=== PATIENT | female | born 1935 | race Caucasian/White ===

== ENCOUNTER 2017-10-31 19:24 | Inpatient (IN) | payer MEDICARE, MEDICAID ==
[2017-10-31] MEDS ORDERED: ACETAMINOPHEN 325 MG TABLET PO ONE (20:19)
[2017-10-31] MEDS ORDERED: ONDANSETRON 4 MG TAB.RAPDIS PO ONE (20:19)
--- NOTE | 2017-10-31 20:22 | ER Document Report ---
ED Medical Screen (RME) - General Chief Complaint: Cough Stated Complaint: COUGH Time Seen by Provider: 10/31/17 20:15 Notes: 82-year-old female patient with onset about 5 PM today of cough congestion fever will need less responsive. Patient does have some dementia. This saw the patient is alert and seems to be nauseous and attempting to spit into an emesis bag. She does have become congested cough. She has past history of coronary artery disease with bypass surgery. I have greeted and performed a rapid initial assessment of this patient. A comprehensive ED assessment and evaluation of the patient, analysis of test results and completion of the medical decision making process will be conducted by additional ED providers. TRAVEL OUTSIDE OF THE [place] IN LAST 30 DAYS: No - Related Data Allergies/Adverse Reactions: acetaminophen [From Tylox] Allergy (Verified 10/31/17 20:17) Hallucinations codeine Allergy (Verified 10/31/17 20:17) Hallucinations escitalopram [From Lexapro] Allergy (Verified 10/31/17 20:17) hydrocodone Allergy (Verified 10/31/17 20:17) Iodinated Contrast- Oral and IV Dye Allergy (Verified 10/31/17 20:17) morphine Allergy (Verified 10/31/17 20:17) oxycodone [From Tylox] Allergy (Verified 10/31/17 20:17) Hallucinations venlafaxine [From Effexor] Allergy (Verified 10/31/17 20:17)
[2017-10-31 21:13] LABS: HEMATOCRIT 36.8 % (36.0-47.0); HEMOGLOBIN 12.4 g/dL (12.0-15.5); MEAN CORPUSCULAR HEMOGLOBIN 29.4 pg (27.0-33.4); MEAN CORPUSCULAR HGB CONC 33.8 g/dL (32.0-36.0); MEAN CORPUSCULAR VOLUME 87 fl (80-97); PLATELET COUNT 121 10^3/uL (150-450); RED BLOOD COUNT 4.23 10^6/uL (3.72-5.28); RED CELL DISTRIBUTION WIDTH 13.4 % (11.5-14.0)
[2017-10-31 21:24] LABS: ALANINE AMINOTRANSFERASE 86 U/L (9-52); ALKALINE PHOSPHATASE 89 U/L (38-126); ANION GAP 11 (5-19); ASPARTATE AMINO TRANSFERASE 79 U/L (14-36); BILIRUBIN,DIRECT 0.1 mg/dL (0.0-0.4); BILIRUBIN,TOTAL 0.4 mg/dL (0.2-1.3); BLOOD UREA NITROGEN 27 mg/dL (7-20); CALCIUM 8.3 mg/dL (8.4-10.2); CARBON DIOXIDE 23 mmol/L (22-30); CHLORIDE 95 mmol/L (98-107); CREATINE KINASE 56 U/L (30-135); GLUCOSE 222 mg/dL (75-110); POTASSIUM 4.2 mmol/L (3.6-5.0); SODIUM 128.6 mmol/L (137-145); TOTAL PROTEIN 6.2 g/dL (6.3-8.2)
[2017-10-31 21:34] LABS: ABSOLUTE LYMPHOCYTES# (MANUAL) 0.4 10^3/uL (0.5-4.7); ABSOLUTE MONOCYTES # (MANUAL) 0.6 10^3/uL (0.1-1.4); BASOPHILS % (MANUAL) 0 % (0-2); EOSINOPHILS % (MANUAL) 0 % (0-6); LYMPHOCYTES % (MANUAL) 5 % (13-45); MONOCYTES % (MANUAL) 8 % (3-13); SEGMENTED NEUTROPHILS % (MAN) 87 % (42-78); TOTAL CELLS COUNTED 100
[2017-10-31 21:35] LABS: CREATINE KINASE MB 0.29 ng/mL (<4.55); PLATELET COMMENT DECREASED; TOXIC GRANULATION SLIGHT
[2017-10-31 21:37] LABS: TROPONIN I 0.046 ng/mL
--- NOTE | 2017-10-31 21:38 | RADIOLOGY REPORT (SQ) ---
EXAM DESCRIPTION: CHEST SINGLE VIEW COMPLETED DATE/TIME: 10/31/2017 9:18 pm REASON FOR STUDY: cough, fever COMPARISON: None. EXAM PARAMETERS: NUMBER OF VIEWS: One view. TECHNIQUE: Single frontal radiographic view of the chest acquired. RADIATION DOSE: NA LIMITATIONS: None. FINDINGS: LUNGS AND PLEURA: No consolidation, masses or pneumothorax. No pleural effusion. MEDIASTINUM AND HILAR STRUCTURES: Age-appropriate. HEART AND VASCULAR STRUCTURES: Cardiomegaly. BONES: No acute findings. HARDWARE: Sternotomy-AVR. OTHER: No other significant finding. IMPRESSION: No consolidation or pleural effusion. TECHNICAL DOCUMENTATION: JOB ID: [id number] [employer]- All Rights Reserved
[2017-10-31] MEDS ORDERED: NORMAL SALINE 500 ML IV ONE (22:06)
--- NOTE | 2017-10-31 22:08 | ER Document Report ---
ED Respiratory Problem - General Chief Complaint: Cough Stated Complaint: COUGH Time Seen by Provider: 10/31/17 20:15 Mode of Arrival: Wheelchair Information source: Patient, Relative Notes: Patient developed cough and congestion around 5 PM this evening. Patient started to have nausea with vomiting at that time as well. Daughter states that on arrival to the emergency department they noted that she had a fever. Patient denies any diarrhea. Patient denies any recent sick contacts. Patient denies any chest pain, back pain or abdominal tenderness. TRAVEL OUTSIDE OF THE [place] IN LAST 30 DAYS: No - HPI Patient complains to provider of: Cough, Short of breath. No: Chest pain Onset: This evening Duration: Continuous Quality of pain: No pain Pain Level: Denies Context: denies: Hx asthma, Recent surgery, Smoker Short of Breath: Mild Cough: Nonproductive Associated symptoms: Congestion, Cough, Short of breath. denies: Anxiety, Bloody cough, Chest pain/discomfort, Fever Similar symptoms previously: No Recently seen / treated by doctor: No - Related Data Allergies/Adverse Reactions: codeine Allergy (Verified 10/31/17 20:17) Hallucinations escitalopram [From Lexapro] Allergy (Verified 10/31/17 20:17) hydrocodone Allergy (Verified 10/31/17 20:17) Iodinated Contrast- Oral and IV Dye Allergy (Verified 10/31/17 20:17) morphine Allergy (Verified 10/31/17 20:17) oxycodone [From Tylox] Allergy (Verified 10/31/17 20:17) Hallucinations venlafaxine [From Effexor] Allergy (Verified 10/31/17 20:17) Past Medical History - General Information source: Patient - Social History Smoking Status: Never Smoker Frequency of alcohol use: None Drug Abuse: None Lives with: Family Family History: Reviewed & Not Pertinent Patient has suicidal ideation: No Patient has homicidal ideation: No - Medical History Medical History: Other - Alzheimer's dementia - Past Medical History Cardiac Medical History: Reports: Hx Coronary Artery Disease Endocrine Medical History: Reports: Hx Hypothyroidism Renal/ Medical History: Denies: Hx Peritoneal Dialysis GI Medical History: Reports: Hx Gastroesophageal Reflux Disease Past Surgical History: Reports: Hx Cardiac Catheterization, Hx Cardiac Surgery - triple bypass, aortic valve repalced, Hx Cholecystectomy, Hx Hysterectomy Review of Systems - Review of Systems Constitutional: No symptoms reported. denies: Fever, Recent illness EENT: No symptoms reported Cardiovascular: No symptoms reported. denies: Chest pain Respiratory: Cough, Short of breath Gastrointestinal: Nausea, Vomiting. denies: Abdominal pain, Diarrhea Genitourinary: No symptoms reported. denies: Dysuria, Flank pain Female Genitourinary: No symptoms reported Musculoskeletal: No symptoms reported. denies: Back pain Skin: No symptoms reported Hematologic/Lymphatic: No symptoms reported Neurological/Psychological: Dementia Physical Exam - Vital signs Vitals: Resp BP Pulse Ox 23 H 116/70 93 10/31/17 21:55 10/31/17 21:55 10/31/17 21:55 - General General appearance: Appears well, Alert In distress: None - HEENT Head: Normocephalic, Atraumatic Eyes: Normal Conjunctiva: Normal Ears: Normal External canal: Normal Nasal: Normal Mouth/Lips: Normal Mucous membranes: Dry Neck: Normal, Supple. No: Lymphadenopathy - Respiratory Respiratory status: No respiratory distress Chest status: Nontender Breath sounds: Nonproductive cough, Rhonchi Chest palpation: Normal - Cardiovascular Rhythm: Regular Heart sounds: S1 appreciated, S2 appreciated Murmur: Yes - Abdominal Inspection: Normal Distension: No distension Bowel sounds: Normal Tenderness: Nontender Organomegaly: No organomegaly - Back Back: Normal, Nontender. No: CVA tenderness - Extremities General upper extremity: Normal inspection, Normal ROM General lower extremity: Normal inspection, Normal ROM - Neurological Neuro grossly intact: Yes Cognition: Normal [place] Coma Scale Eye Opening: Spontaneous [place] Coma Scale Verbal: Oriented [place] Coma Scale Motor: Obeys Commands [place] Coma Scale Total: 15 - Psychological Associated symptoms: Normal affect, Normal mood - Skin Skin Temperature: Warm Skin Moisture: Dry Skin Color: Normal Course - Re-evaluation Re-evalutation: 10/31/17 23:[address] Goldstein regarding patient presentation. Agrees with plan to repeat troponin test. Does recommend treating UTI symptoms. 11/01/17 01:28 Patient resting comfortably. Patient continues to deny any chest pain, back pain or abdominal pain. Patient denies any nausea at this time. front attendant sinus rhythm in the 60s. Patient with increase in her troponin. Patient is still in the indeterminate range at this time. Consulted with Dr. Goldstein who recommends consultation with hospitalist for admission. Consulted with Dr. James who reviewed patient's diagnostic tests and agrees to accept patient as admission at this time - Vital Signs Vital signs: Temp Pulse Resp BP Pulse Ox 98.9 F 21 H 128/58 H 95 11/01/17 06:31 11/01/17 06:01 11/01/17 06:00 11/01/17 06:01 - Laboratory Result Diagrams: 10/31/17 20:05 10/31/17 20:05 Laboratory results interpreted by me: 10/31/17 10/31/17 10/31/17 20:05 20:05 22:05 Plt Count 121 L Seg Neuts % (Manual) 87 H Lymphocytes % (Manual) 5 L Abs Lymphs (Manual) 0.4 L Sodium 128.6 L Chloride 95 L BUN 27 H Glucose 222 H Calcium 8.3 L AST 79 H ALT 86 H Total Protein 6.2 L Urine Protein 100 H Urine Blood SMALL H Urine Nitrite POSITIVE H Ur Leukocyte Esterase SMALL H 11/01/17 01:27 Labs- Entire Visit 10/31/17 10/31/17 10/31/17 20:05 20:05 20:05 WBC 8.0 RBC 4.23 Hgb 12.4 Hct 36.8 MCV 87 MCH 29.4 MCHC 33.8 RDW 13.4 Plt Count 121 L Total Counted 100 Seg Neutrophils % Not Reportable Seg Neuts % (Manual) 87 H Lymphocytes % Not Reportable Lymphocytes % (Manual) 5 L Monocytes % Not Reportable Monocytes % (Manual) 8 Eosinophils % Not Reportable Eosinophils % (Manual) 0 Basophils % Not Reportable Basophils % (Manual) 0 Absolute Neutrophils Not Reportable Abs Neuts (Manual) 7.0 Absolute Lymphocytes Not Reportable Abs Lymphs (Manual) 0.4 L Absolute Monocytes Not Reportable Abs Monocytes (Manual) 0.6 Absolute Eosinophils Not Reportable Absolute Eos (Manual) 0.0 Absolute Basophils Not Reportable Abs Basophils (Manual) 0.0 Toxic Granulation SLIGHT Platelet Comment DECREASED Sodium 128.6 L Potassium 4.2 Chloride 95 L Carbon Dioxide 23 Anion Gap 11 BUN 27 H Creatinine 0.78 Est GFR ( Amer) > 60 Est GFR (Non-Af Amer) > 60 Glucose 222 H Calcium 8.3 L Total Bilirubin 0.4 Direct Bilirubin 0.1 Neonat Total Bilirubin Not Reportable Neonat Direct Bilirubin Not Reportable Neonat Indirect Bili Not Reportable AST 79 H ALT 86 H Alkaline Phosphatase 89 Creatine Kinase 56 CK-MB (CK-2) 0.29 Troponin I 0.046 Total Protein 6.2 L Albumin 4.0 Urine Color Urine Appearance Urine pH Ur Specific [place] Urine Protein Urine Glucose (UA) Urine Ketones Urine Blood Urine Nitrite Urine Bilirubin Urine Urobilinogen Ur Leukocyte Esterase Urine WBC (Auto) Urine RBC (Auto) Urine Bacteria (Auto) Urine Mucus (Auto) Urine Ascorbic Acid Influenza A (Rapid) Influenza B (Rapid) 10/31/17 10/31/17 10/31/17 22:05 22:05 23:46 WBC RBC Hgb Hct MCV MCH MCHC RDW Plt Count Total Counted Seg Neutrophils % Seg Neuts % (Manual) Lymphocytes % Lymphocytes % (Manual) Monocytes % Monocytes % (Manual) Eosinophils % Eosinophils % (Manual) Basophils % Basophils % (Manual) Absolute Neutrophils Abs Neuts (Manual) Absolute Lymphocytes Abs Lymphs (Manual) Absolute Monocytes Abs Monocytes (Manual) Absolute Eosinophils Absolute Eos (Manual) Absolute Basophils Abs Basophils (Manual) Toxic Granulation Platelet Comment Sodium Potassium Chloride Carbon Dioxide Anion Gap BUN Creatinine Est GFR ( Amer) Est GFR (Non-Af Amer) Glucose Calcium Total Bilirubin Direct Bilirubin Neonat Total Bilirubin Neonat Direct Bilirubin Neonat Indirect Bili AST ALT Alkaline Phosphatase Creatine Kinase CK-MB (CK-2) Troponin I 0.107 Total Protein Albumin Urine Color YELLOW Urine Appearance SLIGHTLY-CLOUDY Urine pH 5.0 Ur Specific [place] 1.017 Urine Protein 100 H Urine Glucose (UA) NEGATIVE Urine Ketones NEGATIVE Urine Blood SMALL H Urine Nitrite POSITIVE H Urine Bilirubin NEGATIVE Urine Urobilinogen NEGATIVE Ur Leukocyte Esterase SMALL H Urine WBC (Auto) 27 Urine RBC (Auto) 6 Urine Bacteria (Auto) 3+ Urine Mucus (Auto) FEW Urine Ascorbic Acid NEGATIVE Influenza A (Rapid) NEGATIVE Influenza B (Rapid) NEGATIVE - Diagnostic Test Radiology reviewed: Reports reviewed Discharge - Discharge Clinical Impression: Hyponatremia Upper respiratory infection Qualifiers: URI type: unspecified URI Qualified Code(s): J06.9 - Acute upper respiratory infection, unspecified UTI (urinary tract infection) Qualifiers: Urinary tract infection type: site unspecified Hematuria presence: without hematuria Qualified Code(s): N39.0 - Urinary tract infection, site not specified Condition: Stable Disposition: ADMITTED INPATIENT Admitting Provider: Hospitalist Unit Admitted: Telemetry
[2017-10-31 22:37] LABS: A TYPE INFLUENZA AG NEGATIVE (NEGATIVE); B INFLUENZA AG NEGATIVE (NEGATIVE)
[2017-10-31 22:47] LABS: APPEARANCE,URINE SLIGHTLY-CLOUDY; BILIRUBIN,URINE NEGATIVE (NEGATIVE); COLOR,URINE YELLOW; GLUCOSE, URINE NEGATIVE (NEGATIVE); KETONES,URINE NEGATIVE (NEGATIVE); LEUKOCYTE ESTERASE,URINE SMALL (NEGATIVE); NITRITE,URINE POSITIVE (NEGATIVE); PROTEIN,URINE 100 mg/dL (NEGATIVE); URINE SPECIFIC GRAVITY 1.017; UROBILINOGEN,URINE NEGATIVE mg/dL (<2.0)
[2017-10-31] MEDS ORDERED: CEFTRIAXONE 1 GM/D5W RTU 1 GM/50 ML RTUPB IV ONE (23:14)
[2017-10-31] MEDS ORDERED: CEFTRIAXONE INJ 1000 MG VIAL ONE (23:34)
[2017-11-01] MEDS ORDERED: ASPIRIN 81 MG TABLET, CHEWABLE PO ONE (01:11)
--- NOTE | 2017-11-01 07:03 | PDOC H&P ---
History of Present Illness Admission Date/PCP: 11/01/17 04:22 Patient complains of: Viral-like symptoms History of Present Illness: RITESH MONTOYA is a 82 year old female who is in town visiting her daughter. She has a history of dementia, and is status post a our atrial valve replacement 2 as well as bypass surgery. For the last several days she has had nausea and vomiting and came to the emergency room as she has no local doctor. Here she was found to have hyponatremia according to her daughter she has been hyponatremic in the past but as far as she knew it had been corrected. In addition she was found to have a urinary tract infection. She was started on antibiotics and was admitted to our service. Past Medical History Cardiac Medical History: Reports: Coronary Artery Disease Pulmonary Medical History: Reports: None EENT Medical History: Reports: None Neurological Medical History: Reports: Other - Dementia Endocrine Medical History: Reports: None GI Medical History: Reports: Gastroesophageal Reflux Disease Psychiatric Medical History: Reports: Dementia Past Surgical History Past Surgical History: Reports: Cardiac Catheterization, Cholecystectomy, Hysterectomy Social History Information Source: Patient, Relative Lives with: Family Smoking Status: Never Smoker Frequency of Alcohol Use: None Hx Recreational Drug Use: No Drugs: None Hx Prescription Drug Abuse: No - Advance Directive Resuscitation Status: Full Code Family History Family History: Reviewed & Not Pertinent Parental Family History Reviewed: Yes Children Family History Reviewed: Yes Sibling(s) Family History Reviewed.: Yes Medication/Allergy Allergies/Adverse Reactions: codeine Allergy (Verified 10/31/17 20:17) Hallucinations escitalopram [From Lexapro] Allergy (Verified 10/31/17 20:17) hydrocodone Allergy (Verified 10/31/17 20:17) Iodinated Contrast- Oral and IV Dye Allergy (Verified 10/31/17 20:17) morphine Allergy (Verified 10/31/17 20:17) oxycodone [From Tylox] Allergy (Verified 10/31/17 20:17) Hallucinations venlafaxine [From Effexor] Allergy (Verified 10/31/17 20:17) Review of Systems ROS unobtainable: Due to mental status - Dementia Physical Exam Vital Signs: Temp Pulse Resp BP Pulse Ox 98.9 F 21 H 128/58 H 95 11/01/17 06:31 11/01/17 06:01 11/01/17 06:00 11/01/17 06:01 General appearance: PRESENT: no acute distress, cooperative, thin Head exam: PRESENT: atraumatic, normocephalic Eye exam: PRESENT: EOMI, PERRLA. ABSENT: nystagmus Ear exam: PRESENT: normal external ear exam Neck exam: ABSENT: carotid bruit, JVD, meningismus Respiratory exam: PRESENT: clear to auscultation alfreda, unlabored. ABSENT: accessory muscle use Cardiovascular exam: PRESENT: RRR. ABSENT: diastolic murmur, rubs, systolic murmur GI/Abdominal exam: PRESENT: normal bowel sounds, soft. ABSENT: distended, guarding, mass, organolmegaly, rebound, tenderness Rectal exam: PRESENT: deferred Extremities exam: PRESENT: full ROM. ABSENT: calf tenderness, clubbing, pedal edema Neurological exam: PRESENT: alert, awake, CN II-XII grossly intact Psychiatric exam: PRESENT: appropriate affect, normal mood. ABSENT: homicidal ideation, suicidal ideation Skin exam: PRESENT: dry, intact, warm. ABSENT: cyanosis, rash Results Laboratory Results: 10/31/17 10/31/17 10/31/17 20:05 20:05 20:05 WBC 8.0 Hgb 12.4 Hct 36.8 Plt Count 121 L Sodium 128.6 L Potassium 4.2 BUN 27 H Glucose 222 H Calcium 8.3 L AST 79 H ALT 86 H Troponin I 0.046 Total Protein 6.2 L Ur Leukocyte Esterase Urine WBC (Auto) Influenza A (Rapid) Influenza B (Rapid) 10/31/17 10/31/17 10/31/17 22:05 22:05 23:46 WBC Hgb Hct Plt Count Sodium Potassium BUN Glucose Calcium AST ALT Troponin I 0.107 Total Protein Ur Leukocyte Esterase SMALL H Urine WBC (Auto) 27 Influenza A (Rapid) NEGATIVE Influenza B (Rapid) NEGATIVE Impressions: Chest X-Ray 10/31/17 20:18 IMPRESSION: No consolidation or pleural effusion. Assessment & Plan - Diagnosis (1) Acute viral syndrome Is this a current diagnosis for this admission?: Yes (2) Aortic valve replaced Is this a current diagnosis for this admission?: Yes (3) Hyponatremia Is this a current diagnosis for this admission?: Yes (4) UTI (urinary tract infection) Qualifiers: Urinary tract infection type: site unspecified Hematuria presence: without hematuria Qualified Code(s): N39.0 - Urinary tract infection, site not specified Is this a current diagnosis for this admission?: Yes - Time Time Spent: 30 to 50 Minutes - Inpatient Certification Based on my medical assessment, after consideration of the patient's comorbidities, presenting symptoms, or acuity I expect that the services needed warrant INPATIENT care.: Yes I certify that my determination is in accordance with my understanding of Medicare's requirements for reasonable and necessary INPATIENT services [42 CFR 412.3e].: Yes Medical Necessity: Need for IV Antibiotics - Plan Summary Plan Summary: Patient will be admitted to hospital she will have serum and urine osmolarities to rule out SIADH in the meantime she will have IV saline plus fluid restriction to try to correct her hyponatremia. She will receive DVT prophylaxis with low molecular weight heparin. Anticipated length of stay is greater than 2 midnights
[2017-11-01] MEDS: DOCUSATE SODIUM 100 MG CAPSULE PO SCH (09:55)
[2017-11-01] MEDS: FAMOTIDINE 20 MG TABLET PO SCH ×2 (09:56→21:24)
[2017-11-01] MEDS: NORMAL SALINE 1000 ML 1,000 ML IV PRN (10:00)
[2017-11-01] MEDS: ENOXAPARIN SODIUM INJ 40 MG/0.4 ML DISP.SYRIN SUBCUT SCH (10:06)
[2017-11-01] MEDS: ACETAMINOPHEN 325 MG TABLET PO PRN (14:24)
[2017-11-01] MEDS: TRAZODONE HCL 50 MG TABLET PO SCH (21:23)
[2017-11-01] MEDS: CARVEDILOL 3.125 MG TABLET PO SCH (21:23)
[2017-11-01] MEDS ORDERED: CEFTRIAXONE 1 GM/D5W RTU 1 GM/50 ML RTUPB IV SCH (22:00)
[2017-11-01] MEDS ORDERED: CEFTRIAXONE INJ 1000 MG VIAL ONE (22:41)
[2017-11-02] MEDS: NORMAL SALINE 1000 ML 1,000 ML IV PRN ×2 (03:23→23:06)
[2017-11-02] MEDS: ACETAMINOPHEN 325 MG TABLET PO PRN ×2 (04:30→18:40)
[2017-11-02] MEDS: LEVOTHYROXINE SODIUM 0.05 MG TABLET PO SCH (05:41)
[2017-11-02 06:54] LABS: HEMATOCRIT 33.7 % (36.0-47.0); HEMOGLOBIN 11.4 g/dL (12.0-15.5); MEAN CORPUSCULAR HEMOGLOBIN 29.3 pg (27.0-33.4); MEAN CORPUSCULAR HGB CONC 33.8 g/dL (32.0-36.0); MEAN CORPUSCULAR VOLUME 87 fl (80-97); PLATELET COUNT 103 10^3/uL (150-450); RED BLOOD COUNT 3.89 10^6/uL (3.72-5.28); RED CELL DISTRIBUTION WIDTH 13.6 % (11.5-14.0); WHITE BLOOD COUNT 7.1 10^3/uL (4.0-10.5)
[2017-11-02 07:11] LABS: ANION GAP 5 (5-19); BLOOD UREA NITROGEN 24 mg/dL (7-20); CALCIUM 7.9 mg/dL (8.4-10.2); CARBON DIOXIDE 27 mmol/L (22-30); CHLORIDE 99 mmol/L (98-107); GLUCOSE 102 mg/dL (75-110); MAGNESIUM 1.9 mg/dL (1.6-2.3); PHOSPHORUS 3.1 mg/dL (2.5-4.5); SODIUM 131.3 mmol/L (137-145)
[2017-11-02] MEDS ORDERED: CEFTRIAXONE SODIUM 1,500 MG in DEXTROSE 5%-WATER 100 ML IV SCH (10:00)
[2017-11-02] MEDS ORDERED: CEFTRIAXONE SODIUM 1,000 MG in NORMAL SALINE 50 ML IV SCH (10:00)
[2017-11-02] MEDS ORDERED: (PENDING PHARMACY ID) (Memantine Hcl [Namenda Xr] 28 MG) PO SCH (10:00)
[2017-11-02] MEDS: ASPIRIN 81 MG TABLET, CHEWABLE PO SCH (10:19)
[2017-11-02] MEDS: DONEPEZIL HCL 5 MG TABLET PO SCH (10:19)
[2017-11-02] MEDS: BUSPIRONE HCL 10 MG TABLET PO SCH ×2 (10:19→17:17)
[2017-11-02] MEDS: DOCUSATE SODIUM 100 MG CAPSULE PO SCH (10:19)
[2017-11-02] MEDS: CARVEDILOL 3.125 MG TABLET PO SCH ×2 (10:19→21:02)
[2017-11-02] MEDS: MULTIVITAMIN TABLET PO SCH (10:20)
[2017-11-02] MEDS: FAMOTIDINE 20 MG TABLET PO SCH ×2 (10:20→21:01)
[2017-11-02] MEDS: ENOXAPARIN SODIUM INJ 40 MG/0.4 ML DISP.SYRIN SUBCUT SCH (10:21)
--- NOTE | 2017-11-02 11:55 | EKG REPORT ---
SEVERITY:- ABNORMAL ECG - SINUS TACHYCARDIA LEFT ATRIAL ABNORMALITY RBBB AND LAFB LEFT VENTRICULAR HYPERTROPHY ANTERIOR Q WAVES, POSSIBLY DUE TO LVH : Confirmed by: Guillermina Duque MD 02-Nov-2017 11:53:35
[2017-11-02] MEDS ORDERED: ONDANSETRON HCL INJ/PF 4 MG/2 ML SDV ONE (13:47)
[2017-11-02] MEDS ORDERED: ONDANSETRON HCL INJ/PF 4 MG/2 ML SDV IV PRN (14:21)
--- NOTE | 2017-11-02 14:53 | PDOC PROGRESS REPORT ---
Subjective Progress Note for:: 11/02/17 Subjective:: Patient is an elderly and frail 82-year-old female who has Alzheimer's dementia. Her daughter brought her in because she was coughing and having swallowing difficulties. At the present time she does not appear to have any difficulty with swallowing. Previous notes indicate that the patient was brought in for mental status changes. She currently has evidence of a urinary tract infection. I did observe the patient eating this morning and she did not appear to have any difficulty with swallowing. Reason For Visit: HYPONATREMIA Physical Exam Vital Signs: Temp Pulse Resp BP Pulse Ox 98.9 F 77 16 157/64 H 93 11/02/17 14:00 11/02/17 14:00 11/02/17 14:00 11/02/17 14:00 11/02/17 14:00 Intake & Output 11/01/17 11/02/17 11/03/17 06:59 06:59 06:59 Intake Total 655 520 Output Total 425 600 Balance 230 -80 Additional comments: The patient is a frail and elderly female. She denies all complaints, but her daughter says this is normal for her. Her lungs demonstrate crackles at the bases bilaterally. Her cardiac exam demonstrates a regular rate and rhythm without murmurs, gallops or rubs. The abdomen is soft and flat. The lower extremities are warm to touch without edema. The skin is warm, dry and intact without lesions or rashes. Results Laboratory Results: 11/02/17 06:08 11/02/17 06:08 11/02/17 11/02/17 06:08 06:08 WBC 7.1 RBC 3.89 Hgb 11.4 L Hct 33.7 L MCV 87 MCH 29.3 MCHC 33.8 RDW 13.6 Plt Count 103 L Sodium 131.3 L Potassium 4.0 Chloride 99 Carbon Dioxide 27 Anion Gap 5 BUN 24 H Creatinine 0.74 Est GFR ( Amer) > 60 Est GFR (Non-Af Amer) > 60 Glucose 102 Calcium 7.9 L Phosphorus 3.1 Magnesium 1.9 Impressions: Chest X-Ray 10/31/17 20:18 IMPRESSION: No consolidation or pleural effusion. Assessment & Plan - Diagnosis (2) Hyponatremia Is this a current diagnosis for this admission?: Yes (3) UTI (urinary tract infection) Qualifiers: Urinary tract infection type: site unspecified Hematuria presence: without hematuria Qualified Code(s): N39.0 - Urinary tract infection, site not specified Is this a current diagnosis for this admission?: Yes - Time Time Spent with patient: 15-24 minutes - Inpatient Certification Medical Necessity: Need for IV Antibiotics - Plan Summary Plan Summary: Clinically, the patient appears to be improving. She is currently receiving ceftriaxone for the urinary tract infection. Her sodium is improved. The infection in the low sodium likely led to acute encephalopathy in the setting of dementia. If the cough re-presents I will investigated.
[2017-11-02] MEDS: TRAMADOL HCL 50 MG TABLET PO PRN (21:01)
[2017-11-02] MEDS: TRAZODONE HCL 50 MG TABLET PO SCH (21:02)
[2017-11-02] MEDS: CEFTRIAXONE SODIUM 1,000 MG in NORMAL SALINE 50 ML IV SCH (21:05)
[2017-11-02] MEDS ORDERED: CLONIDINE HCL 0.1 MG TABLET PO ONE (23:00)
[2017-11-03 05:30] LABS: HEMATOCRIT 36.4 % (36.0-47.0); HEMOGLOBIN 12.1 g/dL (12.0-15.5); MEAN CORPUSCULAR HEMOGLOBIN 29.2 pg (27.0-33.4); MEAN CORPUSCULAR HGB CONC 33.1 g/dL (32.0-36.0); MEAN CORPUSCULAR VOLUME 88 fl (80-97); PLATELET COUNT 114 10^3/uL (150-450); RED BLOOD COUNT 4.13 10^6/uL (3.72-5.28); RED CELL DISTRIBUTION WIDTH 13.6 % (11.5-14.0); WHITE BLOOD COUNT 7.6 10^3/uL (4.0-10.5)
[2017-11-03 05:53] LABS: ANION GAP 5 (5-19); BLOOD UREA NITROGEN 20 mg/dL (7-20); CARBON DIOXIDE 28 mmol/L (22-30); CHLORIDE 98 mmol/L (98-107); GLUCOSE 142 mg/dL (75-110); MAGNESIUM 1.7 mg/dL (1.6-2.3); PHOSPHORUS 3.2 mg/dL (2.5-4.5); POTASSIUM 4.3 mmol/L (3.6-5.0); SODIUM 130.6 mmol/L (137-145)
[2017-11-03] MEDS: LEVOTHYROXINE SODIUM 0.05 MG TABLET PO SCH (06:13)
[2017-11-03] MEDS: DONEPEZIL HCL 5 MG TABLET PO SCH (09:57)
[2017-11-03] MEDS: ASPIRIN 81 MG TABLET, CHEWABLE PO SCH (09:57)
[2017-11-03] MEDS: DOCUSATE SODIUM 100 MG CAPSULE PO SCH (09:57)
[2017-11-03] MEDS: BUSPIRONE HCL 10 MG TABLET PO SCH ×2 (09:58→18:25)
[2017-11-03] MEDS: CARVEDILOL 3.125 MG TABLET PO SCH ×2 (09:58→20:25)
[2017-11-03] MEDS: FAMOTIDINE 20 MG TABLET PO SCH ×2 (09:58→20:25)
[2017-11-03] MEDS: MULTIVITAMIN TABLET PO SCH (09:58)
[2017-11-03] MEDS ORDERED: FUROSEMIDE INJ/PF 40 MG/4 ML SDV IV ONE (10:00)
[2017-11-03] MEDS: ENOXAPARIN SODIUM INJ 40 MG/0.4 ML DISP.SYRIN SUBCUT SCH (10:04)
--- NOTE | 2017-11-03 13:06 | PDOC PROGRESS REPORT ---
Subjective Progress Note for:: 11/03/17 Subjective:: Patient is an elderly and frail 82-year-old female who has Alzheimer's dementia. Her daughter brought her in because she was coughing and having swallowing difficulties. At the present time she does not appear to have any difficulty with swallowing. Previous notes indicate that the patient was brought in for mental status changes. She currently has evidence of a urinary tract infection. I did observe the patient eating yesterday and she did not appear to have any difficulty with swallowing. This morning, the patient had audible rales. She also had some difficulty with eating but denied any complaints of shortness of breath or difficulty with cough or swallowing. Apparently, she did have some coughing prior to me entering the room. Reason For Visit: HYPONATREMIA Physical Exam Vital Signs: Temp Pulse Resp BP Pulse Ox 97.3 F 67 20 149/69 H 95 11/03/17 00:00 11/03/17 00:00 11/03/17 00:00 11/03/17 00:00 11/03/17 00:00 Intake & Output 11/02/17 11/03/17 11/04/17 06:59 06:59 06:59 Intake Total 655 1828 Output Total 425 700 Balance 230 1128 Weight 45.3 kg Additional comments: The patient is a delightful, elderly, frail female. She keeps telling me that she is fine and not to worry about her. She has audible rails. Her facial appearance is unremarkable. She is also tachypneic with a respiratory rate of approximately 28. She again has audible rales and very loud rales are auscultated throughout all lung jones. Her cardiac exam is regular without murmurs, gallops or rubs. The abdomen is soft and flat. Bowel sounds are noted in the lower quadrants. The lower extremities are warm to touch without edema. Skin is warm, dry and intact without lesions or rashes. Results Laboratory Results: 11/03/17 04:53 11/03/17 04:53 11/03/17 11/03/17 04:53 04:53 WBC 7.6 RBC 4.13 Hgb 12.1 Hct 36.4 MCV 88 MCH 29.2 MCHC 33.1 RDW 13.6 Plt Count 114 L Sodium 130.6 L Potassium 4.3 Chloride 98 Carbon Dioxide 28 Anion Gap 5 BUN 20 Creatinine 0.57 Est GFR ( Amer) > 60 Est GFR (Non-Af Amer) > 60 Glucose 142 H Calcium 8.0 L Phosphorus 3.2 Magnesium 1.7 Impressions: Chest X-Ray 10/31/17 20:18 IMPRESSION: No consolidation or pleural effusion. Assessment & Plan - Diagnosis (1) Cough Is this a current diagnosis for this admission?: Yes Plan: At this point time I think the patient's cough is from volume overload. Fluids have been stopped. The patient has been written for 1 stat dose of Lasix and a chest x-ray is pending. (2) Hyponatremia Is this a current diagnosis for this admission?: Yes Plan: Serum milestones are normal. Urine sodium is pending. Will volume restrict. Check TSH. (3) UTI (urinary tract infection) Qualifiers: Urinary tract infection type: site unspecified Hematuria presence: without hematuria Qualified Code(s): N39.0 - Urinary tract infection, site not specified Is this a current diagnosis for this admission?: Yes Plan: The patient is growing a pansensitive E. coli. Continue ceftriaxone. (4) Thrombocytopenia Is this a current diagnosis for this admission?: Yes Plan: Stable to improved - Time Time Spent with patient: 25-34 minutes - Inpatient Certification Medical Necessity: Need Close Monitoring Due to Risk of Patient Decompensation, Need for IV Antibiotics, Risk of Complication if Not Cared For in Hospital
--- NOTE | 2017-11-03 13:52 | RADIOLOGY REPORT (SQ) ---
EXAM DESCRIPTION: CHEST SINGLE VIEW COMPLETED DATE/TIME: 11/03/2017 1:39 pm REASON FOR STUDY: Worsening respiratory status COMPARISON: 10/31/2017 NUMBER OF VIEWS: One view. TECHNIQUE: Single frontal radiographic image of the chest acquired. LIMITATIONS: None. FINDINGS: LUNGS AND PLEURA: Extensive airspace disease in both lungs with some sparing of the lower lobes. Small effusions. MEDIASTINUM AND HEART: Stable heart size and mediastinal structures. BONY STRUCTURES: No acute findings. HARDWARE: Prosthetic heart valve. OTHER: No other significant finding. IMPRESSION: Pulmonary edema or sepsis. Clinical correlation is needed. TECHNICAL DOCUMENTATION: JOB ID: [id number]
[2017-11-03] MEDS ORDERED: ALPRAZOLAM 0.25 MG TABLET PO PRN (18:07)
[2017-11-03] MEDS ORDERED: POTASSIUM CHLORIDE 10 MEQ TABLET.SA PO ONE (18:45)
[2017-11-03] MEDS ORDERED: FUROSEMIDE INJ/PF 20 MG/2 ML SDV IV ONE (18:45)
[2017-11-03] MEDS: ACETAMINOPHEN 325 MG TABLET PO PRN (20:25)
[2017-11-03] MEDS: TRAZODONE HCL 50 MG TABLET PO SCH (20:26)
[2017-11-03] MEDS: CEFTRIAXONE SODIUM 1,000 MG in NORMAL SALINE 50 ML IV SCH (20:29)
[2017-11-04 05:40] LABS: HEMOGLOBIN 12.1 g/dL (12.0-15.5); MEAN CORPUSCULAR HEMOGLOBIN 29.3 pg (27.0-33.4); MEAN CORPUSCULAR HGB CONC 33.7 g/dL (32.0-36.0); MEAN CORPUSCULAR VOLUME 87 fl (80-97); PLATELET COUNT 118 10^3/uL (150-450); RED BLOOD COUNT 4.15 10^6/uL (3.72-5.28); RED CELL DISTRIBUTION WIDTH 13.2 % (11.5-14.0); WHITE BLOOD COUNT 7.2 10^3/uL (4.0-10.5)
[2017-11-04] MEDS: LEVOTHYROXINE SODIUM 0.05 MG TABLET PO SCH (05:46)
[2017-11-04 06:12] LABS: ANION GAP 9 (5-19); BLOOD UREA NITROGEN 23 mg/dL (7-20); CALCIUM 8.1 mg/dL (8.4-10.2); CARBON DIOXIDE 30 mmol/L (22-30); CHLORIDE 94 mmol/L (98-107); GLUCOSE 187 mg/dL (75-110); MAGNESIUM 1.7 mg/dL (1.6-2.3); PHOSPHORUS 2.3 mg/dL (2.5-4.5); POTASSIUM 3.8 mmol/L (3.6-5.0); SODIUM 132.8 mmol/L (137-145)
[2017-11-04] MEDS: ACETAMINOPHEN 325 MG TABLET PO PRN ×2 (06:20→13:41)
[2017-11-04] MEDS: TRAMADOL HCL 50 MG TABLET PO PRN ×2 (06:24→21:24)
[2017-11-04] MEDS: ENOXAPARIN SODIUM INJ 40 MG/0.4 ML DISP.SYRIN SUBCUT SCH (09:16)
[2017-11-04] MEDS: ASPIRIN 81 MG TABLET, CHEWABLE PO SCH (09:35)
[2017-11-04] MEDS: FAMOTIDINE 20 MG TABLET PO SCH ×2 (09:38→21:25)
[2017-11-04] MEDS: CARVEDILOL 3.125 MG TABLET PO SCH ×2 (09:38→21:25)
[2017-11-04] MEDS: DOCUSATE SODIUM 100 MG CAPSULE PO SCH (09:38)
[2017-11-04] MEDS: DONEPEZIL HCL 5 MG TABLET PO SCH (09:38)
[2017-11-04] MEDS: BUSPIRONE HCL 10 MG TABLET PO SCH ×2 (09:38→16:48)
[2017-11-04] MEDS: MULTIVITAMIN TABLET PO SCH (09:38)
--- NOTE | 2017-11-04 14:05 | PDOC PROGRESS REPORT ---
Subjective Progress Note for:: 11/04/17 Subjective:: Patient is an elderly and frail 82-year-old female who has Alzheimer's dementia. Her daughter brought her in because she was coughing and having swallowing difficulties. The patient was brought in by her daughter because she had an acute change in her level of cognition. She was identified as having a urinary tract infection. She has become more alert and appropriate. She does get quite confused when her daughter leaves. Yesterday, she had evidence of acute onset pulmonary edema. She was receiving IV fluids for hyponatremia. The fluids were discontinued and she was given IV Lasix. I did ask speech therapy to see the patient today because she was having some obvious difficulty swallowing yesterday. Apparently, she did well with her speech evaluation this morning. When I discussed her cardiac status with her daughter this morning the daughter mentioned to me that she has had coronary artery bypass grafting followed by valvular repair 2. She could not be more specific. I have ordered an echocardiogram any consultation with cardiology. I did clarify the patient's CODE STATUS this morning. She has been made DNR. She does not want routine interventions but if she worsens and she is pulseless she would want to pass away naturally. She does not want intubation. Reason For Visit: HYPONATREMIA Physical Exam Vital Signs: Temp Pulse Resp BP Pulse Ox 97.8 F 70 12 134/52 H 97 11/04/17 11:49 11/04/17 11:49 11/04/17 11:49 11/04/17 11:49 11/04/17 11:49 Intake & Output 11/03/17 11/04/17 11/05/17 06:59 06:59 06:59 Intake Total 1828 1154 Output Total 700 2900 Balance 1128 -1746 Weight 45.3 kg 45.2 kg Additional comments: The patient appears to be a very frail, elderly female. However, she is not in as much distress as she was yesterday. She does appear to be significantly improved. She is interactive and denies any complaints. Her lungs continue to show rales but they are subsiding. Her cardiac exam is regular. I do not appreciate any murmurs, gallops or rubs. The cardiac exam is somewhat distant and limited. The patient's abdomen is soft. Bowel sounds are present in the lower quadrants. There is no guarding or rebound noted and there are no hernias or masses present. The lower extremities do not demonstrate pitting edema. The skin is warm, dry and intact without lesions or rashes. Results Laboratory Results: 11/04/17 04:37 11/04/17 04:37 11/04/17 11/04/17 11/04/17 04:37 04:37 04:37 WBC 7.2 RBC 4.15 Hgb 12.1 Hct 36.0 MCV 87 MCH 29.3 MCHC 33.7 RDW 13.2 Plt Count 118 L Sodium 132.8 L Potassium 3.8 Chloride 94 L Carbon Dioxide 30 Anion Gap 9 BUN 23 H Creatinine 0.76 Est GFR ( Amer) > 60 Est GFR (Non-Af Amer) > 60 Glucose 187 H Calcium 8.1 L Phosphorus 2.3 L Magnesium 1.7 TSH 1.68 Impressions: Chest X-Ray 11/03/17 00:00 IMPRESSION: Pulmonary edema or sepsis. Clinical correlation is needed. Assessment & Plan - Diagnosis (1) Cough Is this a current diagnosis for this admission?: Yes Plan: At this point time I think the patient's cough is from volume overload. Fluids have been stopped. Patient is receiving Lasix. Echocardiogram has been ordered. Cardiology consultation has been ordered. (2) Hyponatremia Is this a current diagnosis for this admission?: Yes Plan: Serum osmolality is low. Urine sodium is elevated.. Will volume restrict. TSH is normal. (3) UTI (urinary tract infection) Qualifiers: Urinary tract infection type: site unspecified Hematuria presence: without hematuria Qualified Code(s): N39.0 - Urinary tract infection, site not specified Is this a current diagnosis for this admission?: Yes Plan: The patient is growing a pansensitive E. coli. Continue ceftriaxone. (4) Thrombocytopenia Is this a current diagnosis for this admission?: Yes Plan: Stable to improved - Time Time Spent with patient: 25-34 minutes - Inpatient Certification Medical Necessity: Significant Comorbidiites Make Outpatient Treatment Too Risky , Need Close Monitoring Due to Risk of Patient Decompensation, Need For Continuous Telemetry Monitoring, Risk of Complication if Not Cared For in Hospital, Risk of Diagnosis Which Will Require Inpatient Eval/Care/Monitoring
[2017-11-04] MEDS ORDERED: PHOSPHORUS #1 250 MG TABLET PO ONE (15:00)
[2017-11-04] MEDS ORDERED: POTASSIUM CHLORIDE 10 MEQ TABLET.SA PO ONE (15:00)
[2017-11-04] MEDS ORDERED: FUROSEMIDE INJ/PF 20 MG/2 ML SDV IV ONE (15:00)
[2017-11-04] MEDS: PHOSPHORUS #1 250 MG TABLET PO SCH (15:41)
--- NOTE | 2017-11-04 18:50 | EKG REPORT ---
SEVERITY:- ABNORMAL ECG - SINUS TACHYCARDIA LEFT ATRIAL ABNORMALITY RBBB AND LAFB LEFT VENTRICULAR HYPERTROPHY ANTERIOR Q WAVES, POSSIBLY DUE TO LVH : Confirmed by: Jayy Wynn MD 04-Nov-2017 18:49:18
--- NOTE | 2017-11-04 19:29 | XCELERA REPORT ---
[address] [address] Transthoracic Echocardiogram Report Name: RITESH MONTOYA Age: 82 yrs Gender: Female : 1935 Patient Status: Inpatient Patient Location: [address] [place] [address] Study Date: 11/04/2017 10:49 AM Height: 48 in Weight: 99 lb BSA: 1.2 m2 Procedure: A complete two-dimensional transthoracic echocardiogram was performed (2D, M-mode, spectral and color flow Doppler). The study was technically difficult with many images being suboptimal in quality. Reason For Study: congestive heart failure Ordering Physician: JANIA HOANG Performed By: Genevieve Gutierrez Interpretation Summary The study was technically difficult with many images being suboptimal in quality. Left ventricular systolic function is low normal. There is mild concentric left ventricular hypertrophy. The left ventricle is grossly normal size. Doppler measurements suggest reversible restrictive left ventricular relaxation, which is associated with grade III/IV or moderate diastolic dysfunction Wall motion cannot be accurately commented on, but no definite regional wall motion abnormalities noted. The right ventricular systolic function is normal. The right atrium is mildly dilated. The left atrium is mildly dilated. There is a mild to moderate amount of mitral regurgitation There is no mitral valve stenosis. There is a mild to moderate amount of aortic regurgitation There is mild aortic stenosis There is a mild amount of tricuspid regurgitation There is mild to moderate pulmonary hypertension by echo Right ventricular systolic pressure is estimated to be elevated at 40- 50mmHg. The aortic root is not well visualized. The inferior vena cava appeared dilated and decreased < 50% with respiration (RAP 15-20 mmHg) There is no pericardial effusion. MMode/2D Measurements & Calculations RVDd: 3.0 cm LVIDd: 4.5 cm FS: 31.2 % Ao root diam: 3.1 cm IVSd: 0.96 cm LVIDs: 3.1 cm EDV(Teich): 92.1 ml LVPWd: 1.0 cm ESV(Teich): 37.6 ml Ao root area: 7.4 cm2 EF(Teich): 59.1 % LVOT diam: 2.0 cm LVOT area: 3.1 cm2 Doppler Measurements & Calculations MV E max neeraj: MV dec slope: Ao V2 max: AI max neeraj: 114.0 cm/sec 576.7 cm/sec2 239.0 cm/sec 433.2 cm/sec MV A max neeraj: MV dec time: Ao max PG: AI max P.8 cm/sec 0.20 sec 22.9 mmHg 75.1 mmHg MV E/A: 0.98 Ao V2 mean: AI dec slope: 167.8 cm/sec 217.5 cm/sec2 Ao mean PG: AI P1/2t: 13.0 mmHg 583.5 msec Ao V2 VTI: 50.9 cm EMMANUELLE(I,D): 1.1 cm2 EMMANUELLE(V,D): 0.97 cm2 LV V1 max PG: SV(LVOT): 56.0 ml PA V2 max: PI end-d neeraj: 2.2 mmHg 65.8 cm/sec 110.3 cm/sec LV V1 mean PG: PA max P.3 mmHg 1.7 mmHg LV V1 max: 74.5 cm/sec LV V1 mean: 52.6 cm/sec LV V1 VTI: 18.0 cm TR max neeraj: 235.2 cm/sec TR max P.3 mmHg Left Ventricle The left ventricle is grossly normal size. There is mild concentric left ventricular hypertrophy. Left ventricular systolic function is low normal. Doppler measurements suggest reversible restrictive left ventricular relaxation, which is associated with grade III/IV or moderate diastolic dysfunction. Wall motion cannot be accurately commented on, but no definite regional wall motion abnormalities noted. Right Ventricle The right ventricle is grossly normal size. There is normal right ventricular wall thickness. The right ventricular systolic function is normal. Atria The right atrium is mildly dilated. The left atrium is mildly dilated. Interarterial septum not well visualized and not well dopplered. Cannot comment on ASD/PFO presence. Mitral Valve There is moderate mitral annular calcification. There is no mitral valve stenosis. There is a mild to moderate amount of mitral regurgitation. Aortic Valve There is mild aortic stenosis. There is a mild to moderate amount of aortic regurgitation. There is a bioprosthetic aortic valve. Tricuspid Valve The tricuspid valve is not well visualized, but is grossly normal. There is no tricuspid stenosis. There is a mild amount of tricuspid regurgitation. There is mild to moderate pulmonary hypertension by echo. Right ventricular systolic pressure is estimated to be elevated at 40-50mmHg. Pulmonic Valve The pulmonic valve is not well visualized. Great Vessels The aortic root is not well visualized. The inferior vena cava appeared dilated and decreased < 50% with respiration (RAP 15-20 mmHg). Effusions There is no pericardial effusion. : JANIA HOANG > Ebenezer Minaya
[2017-11-04] MEDS: CEFTRIAXONE SODIUM 1,000 MG in NORMAL SALINE 50 ML IV SCH (21:24)
[2017-11-04] MEDS: TRAZODONE HCL 50 MG TABLET PO SCH (21:25)
[2017-11-05] MEDS: TRAMADOL HCL 50 MG TABLET PO PRN (03:57)
[2017-11-05] MEDS: HYDRALAZINE HCL INJ/PF 20 MG/1 ML SDV IV PRN (05:21)
[2017-11-05 06:10] LABS: ANION GAP 10 (5-19); BLOOD UREA NITROGEN 31 mg/dL (7-20); CALCIUM 8.3 mg/dL (8.4-10.2); CARBON DIOXIDE 30 mmol/L (22-30); CHLORIDE 93 mmol/L (98-107); GLUCOSE 254 mg/dL (75-110); MAGNESIUM 1.7 mg/dL (1.6-2.3); PHOSPHORUS 3.2 mg/dL (2.5-4.5); POTASSIUM 4.1 mmol/L (3.6-5.0); SODIUM 133.1 mmol/L (137-145)
[2017-11-05] MEDS: LEVOTHYROXINE SODIUM 0.05 MG TABLET PO SCH (06:37)
[2017-11-05] MEDS: ACETAMINOPHEN 325 MG TABLET PO PRN (07:19)
[2017-11-05] MEDS: PHOSPHORUS #1 250 MG TABLET PO SCH ×3 (08:32→15:11)
[2017-11-05] MEDS: ENOXAPARIN SODIUM INJ 40 MG/0.4 ML DISP.SYRIN SUBCUT SCH (09:44)
[2017-11-05] MEDS: DONEPEZIL HCL 5 MG TABLET PO SCH (09:45)
[2017-11-05] MEDS: BUSPIRONE HCL 10 MG TABLET PO SCH ×2 (09:45→17:30)
[2017-11-05] MEDS: DOCUSATE SODIUM 100 MG CAPSULE PO SCH (09:45)
[2017-11-05] MEDS: FAMOTIDINE 20 MG TABLET PO SCH ×2 (09:46→21:56)
[2017-11-05] MEDS: CARVEDILOL 3.125 MG TABLET PO SCH (09:46)
[2017-11-05] MEDS: ASPIRIN 81 MG TABLET, CHEWABLE PO SCH (09:46)
[2017-11-05] MEDS: MULTIVITAMIN TABLET PO SCH (09:46)
--- NOTE | 2017-11-05 10:05 | PDOC CONSULTATION ---
Consultation Consult Date: 11/04/17 Attending physician:: JACOBY RAMOS Consult reason:: Positive troponin I History of Present Illness Admission Date/PCP: 11/01/17 04:22 Patient complains of: Noted to be short of breath History of Present Illness: RITESH MONTOYA is a 82 year old female who is in town visiting her daughter. She has a history of dementia, and is status post a our atrial valve replacement 2 as well as bypass surgery. For the last several days she has had nausea and vomiting and came to the emergency room as she has no local doctor. Here she was found to have hyponatremia according to her daughter she has been hyponatremic in the past but as far as she knew it had been corrected. In addition she was found to have a urinary tract infection. She was started on antibiotics and was admitted to our service. This history was reviewed and confirmed. I did talk with patient's daughter who was in the room. Patient has history of complicated cardiac history with valve replacement and also bypass surgery. Patient has history of CHF. Currently however she seems to have some pneumonia. This was discussed. Also discussed that because of her advanced age, dementia, mild general debility, she would not be considered a candidate for any aggressive and/or invasive evaluation. Patient's daughter seems to agree with this approach. Past Medical History Cardiac Medical History: Reports: Coronary Artery Disease Pulmonary Medical History: Reports: None EENT Medical History: Reports: None Neurological Medical History: Reports: Other - Dementia Endocrine Medical History: Reports: None, Hypothyroidism GI Medical History: Reports: Gastroesophageal Reflux Disease Psychiatric Medical History: Reports: Dementia, Depression Past Surgical History Past Surgical History: Reports: Cardiac Catheterization, Cholecystectomy, Hysterectomy Social History Lives with: Family Smoking Status: Never Smoker Frequency of Alcohol Use: None Hx Recreational Drug Use: No Drugs: None Hx Prescription Drug Abuse: No - Advance Directive Resuscitation Status: Full Code Family History Family History: CAD, Hypertension Parental Family History Reviewed: Yes Children Family History Reviewed: Yes Sibling(s) Family History Reviewed.: Yes Medication/Allergy Home Medications: Aspirin [Aspirin 81 mg Chewable Tablet] 81 mg PO DAILY 11/01/17 Buspirone HCl [Buspar 10 mg Tablet] 10 mg PO BID 11/01/17 Calcium Carbonate/Vitamin D3 [Calcium 600-Vit D3 200 Tablet] 1 each PO DAILY Carvedilol [Coreg 3.125 mg Tablet] 3.125 mg PO Q12 11/01/17 Cyanocobalamin (Vitamin B-12) [B-12] 1,000 mcg PO DAILY 11/01/17 Donepezil HCl [Aricept] 10 mg PO DAILY 11/01/17 Famotidine [Pepcid 20 mg Tablet] 20 mg PO DAILY 11/01/17 Ferrous Sulfate [Feosol 325 mg Tablet] 325 mg PO DAILY 11/01/17 Flavia Root 550 mg PO DAILY 11/01/17 Levothyroxine Sodium [Synthroid 0.05 mg Tablet] 0.05 mg PO Q6AM 11/01/17 Memantine HCl [Namenda Xr] 28 mg PO DAILY 11/01/17 Multivitamin [Tab-A-Imtiaz] 1 each PO DAILY 11/01/17 Nitroglycerin [Nitrostat 0.4 mg (1/150 Gr) Tabs 25/Bottle] 1 tab PO ASDIR PRN Tramadol HCl [Ultram 50 mg Tablet] 50 mg PO ASDIR PRN 11/01/17 Trazodone HCl [Desyrel 50 mg Tablet] 75 mg PO QHS 11/01/17 Allergies/Adverse Reactions: codeine Allergy (Verified 10/31/17 20:17) Hallucinations escitalopram [From Lexapro] Allergy (Verified 10/31/17 20:17) hydrocodone Allergy (Verified 10/31/17 20:17) Iodinated Contrast- Oral and IV Dye Allergy (Verified 10/31/17 20:17) morphine Allergy (Verified 10/31/17 20:17) oxycodone [From Tylox] Allergy (Verified 10/31/17 20:17) Hallucinations venlafaxine [From Effexor] Allergy (Verified 10/31/17 20:17) seafood Allergy (Uncoded 11/07/17 16:14) Review of Systems ROS unobtainable: Due to mental status Review of Systems: Patient has advanced dementia. Currently however denying any chest pains or any shortness of breath. Noted to be comfortable laying in bed. Physical Exam Vital Signs: Temp Pulse Resp BP Pulse Ox 97.3 F 82 20 152/71 H 97 11/04/17 16:20 11/04/17 16:20 11/04/17 16:20 11/04/17 16:20 11/04/17 16:20 Intake & Output 11/03/17 11/04/17 11/05/17 06:59 06:59 06:59 Intake Total 1828 1154 645 Output Total 700 2900 100 Balance 1128 -9364 545 Weight 45.3 kg 45.2 kg Exam: GENERAL: Thin built and in mild respiratory distress. Patient is alert but not oriented to place or time but oriented to person. HEAD: Atraumatic, normocephalic. EYES: Pupils equal round and reactive to light, extraocular movements intact, sclera anicteric, conjunctiva are normal. ENT: TMs normal, nares patent, oropharynx clear without exudates. Moist mucous membranes. No oral ulcerations or bleeding gums noted NECK: supple without lymphadenopathy or JVD. Trachea is central. No cervical or axillary lymphadenopathy noted. Carotids are 2+ LUNGS: Breath sounds bibasilar fine crackles at bases. No significant dullness noted. CHEST: Palpation of chest wall shows no significant chest wall tenderness. HEART: [place] [employer], No PSH, 2/6 MARSHAL aortic area, 2/6 early diastolic murmur noted in the LSB: 1/6 [place]ue systolic murmur mitral area, rubs or gallops. ABDOMEN: Soft, no significant tenderness appreciated, normoactive bowel sounds. No guarding, no rebound. No rigidity noted . No masses appreciated. EXTREMITIES: Pedal pulses are 1-2+, no calf tenderness noted, Trace + pedal edema noted. No clubbing or cyanosis. NEUROLOGICAL: Patient is alert but is not able to participate in neurological exam because of patient's current mental status PSYCH: Patient cannot participate in a neurologic and psych exam because of the patient's current mental status SKIN: No significant ecchymosis, rash, ulcerations or signs of pruritus noted. MUSCULOSKELETAL EXAM: No significant joint swelling noted. Results Laboratory Results: 11/04/17 04:37 11/04/17 04:37 11/04/17 11/04/17 11/04/17 04:37 04:37 04:37 WBC 7.2 RBC 4.15 Hgb 12.1 Hct 36.0 MCV 87 MCH 29.3 MCHC 33.7 RDW 13.2 Plt Count 118 L Sodium 132.8 L Potassium 3.8 Chloride 94 L Carbon Dioxide 30 Anion Gap 9 BUN 23 H Creatinine 0.76 Est GFR ( Amer) > 60 Est GFR (Non-Af Amer) > 60 Glucose 187 H Calcium 8.1 L Phosphorus 2.3 L Magnesium 1.7 TSH 1.68 EKG Comments: Sinus tachycardia with incomplete right bundle branch block pattern. No acute ST-T wave changes noted. Impressions: Chest X-Ray 11/03/17 00:00 IMPRESSION: Pulmonary edema or sepsis. Clinical correlation is needed. Assessment & Plan - Diagnosis (1) Aortic valve replaced Is this a current diagnosis for this admission?: Yes (2) Hyponatremia Is this a current diagnosis for this admission?: Yes (3) Congestive heart failure Qualifiers: Congestive heart failure type: unspecified Is this a current diagnosis for this admission?: Yes (4) Pneumonia Qualifiers: Pneumonia type: due to unspecified organism Laterality: unspecified laterality Lung location: unspecified part of lung Qualified Code(s): J18.9 - Pneumonia, unspecified organism Is this a current diagnosis for this admission?: Yes (5) Elevated troponin I level Is this a current diagnosis for this admission?: Yes - Notes Notes: Patient noted to have bioprosthetic aortic valve. Patient also has known coronary artery disease. Patient however is quite debilitated and has advanced dementia. Patient currently DNR. 2D echo results reviewed showed LV EF at lower limit of normal. Moderate aortic incompetence and mild aortic stenosis noted. At this point as regards CHF patient seems fairly compensated. Will however check a BNP level. As regards hyponatremia, this could be related to pneumonia and syndrome of inappropriate ADH secretion from that. Agree with cautious sodium replacement. May consider free water restriction. As pneumonia, continue antibiotic therapy. Management plans was discussed with patient's daughter who is currently surrogate decision-maker. Overall prognosis is guarded due to advanced age and marked general debility. - Time Time Spent: 30 to 50 Minutes Medications reviewed and adjusted accordingly: Yes
[2017-11-05] MEDS ORDERED: FUROSEMIDE INJ/PF 20 MG/2 ML SDV IV ONE (10:17)
[2017-11-05] MEDS ORDERED: POTASSIUM CHLORIDE 10 MEQ TABLET.SA PO ONE (10:19)
[2017-11-05] MEDS ORDERED: CARVEDILOL 3.125 MG TABLET PO SCH (10:19)
[2017-11-05] MEDS ORDERED: FUROSEMIDE INJ/PF 40 MG/4 ML SDV IV ONE ×2 (10:30→18:00)
[2017-11-05] MEDS: CARVEDILOL 6.25 MG TABLET PO SCH ×2 (12:28→21:56)
[2017-11-05] MEDS ORDERED: CARVEDILOL 3.125 MG TABLET PO ONE (13:00)
--- NOTE | 2017-11-05 14:52 | PDOC PROGRESS REPORT ---
Subjective Progress Note for:: 11/05/17 Subjective:: Patient is an elderly and frail 82-year-old female who has Alzheimer's dementia. Her daughter brought her in because she was coughing and having swallowing difficulties and because she had an acute change in her level of cognition. She was identified as having a urinary tract infection. She has become more alert and appropriate. She does get quite confused when her daughter leaves. Friday, she had evidence of acute onset pulmonary edema. She was receiving IV fluids for hyponatremia. The fluids were discontinued and she was given IV Lasix. I did ask speech therapy to see the patient today because she was having some obvious difficulty swallowing. Apparently, she did well with her speech evaluation this. When I discussed her cardiac status with her daughter this morning the daughter mentioned to me that she has had coronary artery bypass grafting followed by valvular repair 2. She could not be more specific. The patient's echocardiogram did not demonstrate any significant valvular abnormalities. The ejection fraction was low normal. The patient was noted to have moderate diastolic dysfunction. CODE STATUS was readdressed on Friday. The patient has been made DNR. Reason For Visit: HYPONATREMIA Physical Exam Vital Signs: Temp Pulse Resp BP Pulse Ox 98.3 F 85 22 H 160/82 H 95 11/05/17 11:34 11/05/17 11:34 11/05/17 11:34 11/05/17 11:34 11/05/17 11:34 Intake & Output 11/04/17 11/05/17 11/06/17 06:59 06:59 06:59 Intake Total 1154 1095 Output Total 2900 450 Balance -1746 645 Weight 45.2 kg 43.4 kg Additional comments: The patient appeared tachypneic this morning. Today, was the first time I could actually get her to state that she actually felt bad and short of breath. Her lungs demonstrate coarse rales anteriorly and posteriorly. Her cardiac exam demonstrated an S3 murmur and/or an S4 gallop. I did not specifically hear a murmur. The abdomen is soft and flat. Bowel sounds are present in the lower quadrants. She does not have guarding or rebound noted and there are no hernias or masses present. The lower extremities were warm with only trace edema. The skin is warm, dry and intact without lesions or rashes. Results Laboratory Results: 11/04/17 04:37 11/05/17 05:15 11/05/17 05:15 Sodium 133.1 L Potassium 4.1 Chloride 93 L Carbon Dioxide 30 Anion Gap 10 BUN 31 H Creatinine 0.72 Est GFR ( Amer) > 60 Est GFR (Non-Af Amer) > 60 Glucose 254 H Calcium 8.3 L Phosphorus 3.2 Magnesium 1.7 11/05/17 05:15 NT-Pro-B Natriuret Pep 02378 H Impressions: Chest X-Ray 11/03/17 00:00 IMPRESSION: Pulmonary edema or sepsis. Clinical correlation is needed. Assessment & Plan - Diagnosis (1) Cough Is this a current diagnosis for this admission?: Yes Plan: At this point time I think the patient's cough is from volume overload. Fluids have been stopped. Patient is receiving Lasix. Radiology is following. I have increased the patient's dose of carvedilol. I will also augment therapy with Lasix. (2) Hyponatremia Is this a current diagnosis for this admission?: Yes Plan: Serum osmolality is low. Urine sodium is elevated.. Will volume restrict. TSH is normal. Serum sodium is stable at this time. (3) UTI (urinary tract infection) Qualifiers: Urinary tract infection type: site unspecified Hematuria presence: without hematuria Qualified Code(s): N39.0 - Urinary tract infection, site not specified Is this a current diagnosis for this admission?: Yes Plan: The patient is growing a pansensitive E. coli. Continue ceftriaxone. She did have one isolated fever about 36 hours ago. I was not notified when this occurred. Since she has not had any additional fevers I have not augmented her therapy. Repeat blood cultures were not done. (4) Thrombocytopenia Is this a current diagnosis for this admission?: Yes Plan: Stable to improved. Labs will be repeated tomorrow. (5) Pulmonary edema Is this a current diagnosis for this admission?: Yes Plan: Jacob, the patient is in decompensated heart failure. I will augment therapy with Lasix. Dose of carvedilol has been increased. - Time Time Spent with patient: 25-34 minutes - Inpatient Certification Medical Necessity: Significant Comorbidiites Make Outpatient Treatment Too Risky , Need Close Monitoring Due to Risk of Patient Decompensation
--- NOTE | 2017-11-05 20:51 | PDOC PROGRESS REPORT ---
Subjective Progress Note for:: 11/05/17 Subjective:: Patient remains confused. Patient seems to be doing better with gradual improvement. Patient not noted to have any chest discomfort or any PND, orthopnea. Patient not in any other significant discomfort. Patient is maintaining sinus rhythm. Review of systems: Rest review of systems negative. Medications: Medications have been reviewed. Reason For Visit: HYPONATREMIA Physical Exam Vital Signs: Temp Pulse Resp BP Pulse Ox 98.5 F 109 H 18 155/69 H 91 L 11/05/17 07:48 11/05/17 07:48 11/05/17 06:37 11/05/17 08:21 11/05/17 07:48 Intake & Output 11/04/17 11/05/17 11/06/17 06:59 06:59 06:59 Intake Total 1154 1095 Output Total 2900 450 Balance -1746 645 Weight 45.2 kg 43.4 kg Exam: GENERAL: Thin built and in no acute distress. Patient is alert but not oriented to place or time but oriented to person. Patient clinically seems better HEAD: Atraumatic, normocephalic. EYES: Pupils equal round and reactive to light, extraocular movements intact, sclera anicteric, conjunctiva are normal. ENT: TMs normal, nares patent, oropharynx clear without exudates. Moist mucous membranes. No oral ulcerations or bleeding gums noted NECK: supple without lymphadenopathy or JVD. Trachea is central. No cervical or axillary lymphadenopathy noted. Carotids are 2+ LUNGS: Breath sounds bibasilar fine crackles at bases. No significant dullness noted. CHEST: Palpation of chest wall shows no significant chest wall tenderness. 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 ABDOMEN: Soft, no significant tenderness appreciated, normoactive bowel sounds. No guarding, no rebound. No rigidity noted . No masses appreciated. EXTREMITIES: Pedal pulses are 1-2+, no calf tenderness noted, Trace + pedal edema noted. No clubbing or cyanosis. NEUROLOGICAL: Patient is alert but is not able to participate in neurological exam because of patient's current mental status PSYCH: Patient cannot participate in a neurologic and psych exam because of the patient's current mental status SKIN: No significant ecchymosis, rash, ulcerations or signs of pruritus noted. MUSCULOSKELETAL EXAM: No significant joint swelling noted. Results Laboratory Results: 11/04/17 04:37 11/05/17 05:15 11/05/17 05:15 Sodium 133.1 L Potassium 4.1 Chloride 93 L Carbon Dioxide 30 Anion Gap 10 BUN 31 H Creatinine 0.72 Est GFR ( Amer) > 60 Est GFR (Non-Af Amer) > 60 Glucose 254 H Calcium 8.3 L Phosphorus 3.2 Magnesium 1.7 EKG Comments: Showed sinus rhythm without any sustained tacky or bradycardia arrhythmias. Impressions: Chest X-Ray 11/03/17 00:00 IMPRESSION: Pulmonary edema or sepsis. Clinical correlation is needed. Assessment & Plan - Diagnosis (1) Aortic valve replaced Is this a current diagnosis for this admission?: Yes (2) Hyponatremia Is this a current diagnosis for this admission?: Yes (3) Congestive heart failure Qualifiers: Congestive heart failure type: unspecified Is this a current diagnosis for this admission?: Yes (4) Pneumonia Qualifiers: Pneumonia type: due to unspecified organism Laterality: unspecified laterality Lung location: unspecified part of lung Qualified Code(s): J18.9 - Pneumonia, unspecified organism Is this a current diagnosis for this admission?: Yes - Notes Notes: Troponin I elevation: Possibly related to pneumonia, CHF rather than acute coronary syndrome. Feel that patient not a candidate for ischemia workup. Patient's daughter agrees. Recommend medical management. Patient noted to have bioprosthetic aortic valve. Patient also has known coronary artery disease. Patient however is quite debilitated and has advanced dementia. Patient currently DNR. 2D echo results reviewed showed LV EF at lower limit of normal. Moderate aortic incompetence and mild aortic stenosis noted. At this point as regards CHF patient seems fairly compensated. Will however check a BNP level. As regards hyponatremia, this could be related to pneumonia and syndrome of inappropriate ADH secretion from that. Agree with cautious sodium replacement . As pneumonia, continue antibiotic therapy. Management plans was discussed with patient's daughter who is currently surrogate decision-maker. Overall prognosis is guarded due to advanced age and marked general debility. - Time Time with patient: 15-25 minutes - CODE STATUS : was discussed, patient remains DO NOT RESUSCITATE. Surrogate decision-maker unchanged. Multiple medical problems were addressed. More than 50% of the time spent coordinating care, discussing management plans with involved caregivers. Management plans discussed with involved personnels. Medical decision making was of moderate to high complexity, patient's has multiple comorbidities. Medications reviewed and adjusted accordingly: Yes
[2017-11-05] MEDS: TRAZODONE HCL 50 MG TABLET PO SCH (21:53)
[2017-11-05] MEDS: POTASSIUM CHLORIDE 10 MEQ TABLET.SA PO SCH (21:56)
[2017-11-05] MEDS ORDERED: FUROSEMIDE INJ/PF 20 MG/2 ML SDV IV SCH (22:00)
[2017-11-05] MEDS ORDERED: CEFTRIAXONE SODIUM 1,000 MG in DEXTROSE 5%-WATER 50 ML IV SCH (22:00)
[2017-11-06] MEDS: TRAMADOL HCL 50 MG TABLET PO PRN ×2 (00:09→16:08)
[2017-11-06] MEDS: HYDRALAZINE HCL INJ/PF 20 MG/1 ML SDV IV PRN (06:17)
[2017-11-06] MEDS: LEVOTHYROXINE SODIUM 0.05 MG TABLET PO SCH (06:17)
[2017-11-06 06:34] LABS: ABSOLUTE LYMPHOCYTES (AUTO) 0.6 10^3/uL (0.5-4.7); ABSOLUTE MONOCYTES (AUTO) 0.3 10^3/uL (0.1-1.4); HEMATOCRIT 38.8 % (36.0-47.0); HEMOGLOBIN 13.2 g/dL (12.0-15.5); LYMPHOCYTES % (AUTO) 5.8 % (13-45); MEAN CORPUSCULAR HEMOGLOBIN 29.3 pg (27.0-33.4); MEAN CORPUSCULAR HGB CONC 34.1 g/dL (32.0-36.0); MEAN CORPUSCULAR VOLUME 86 fl (80-97); MONOCYTES % (AUTO) 2.6 % (3-13); PLATELET COUNT 178 10^3/uL (150-450); RED BLOOD COUNT 4.51 10^6/uL (3.72-5.28); RED CELL DISTRIBUTION WIDTH 13.5 % (11.5-14.0); SEGMENTED NEUTROPHILS % (AUTO) 91.6 % (42-78); TOTAL CELLS COUNTED % (AUTO) 100 %
[2017-11-06 06:50] LABS: ANION GAP 10 (5-19); BLOOD UREA NITROGEN 34 mg/dL (7-20); CALCIUM 8.3 mg/dL (8.4-10.2); CARBON DIOXIDE 36 mmol/L (22-30); CHLORIDE 87 mmol/L (98-107); GLUCOSE 289 mg/dL (75-110); MAGNESIUM 1.6 mg/dL (1.6-2.3); PHOSPHORUS 3.4 mg/dL (2.5-4.5); POTASSIUM 4.1 mmol/L (3.6-5.0); SODIUM 133.4 mmol/L (137-145)
[2017-11-06] MEDS: FUROSEMIDE INJ/PF 100 MG/10 ML SDV ONE ×2 (08:17→10:30)
[2017-11-06] MEDS ORDERED: FUROSEMIDE INJ/PF 40 MG/4 ML SDV IV SCH ×2 (08:30→22:00)
--- NOTE | 2017-11-06 08:35 | Progress Note ---
Provider Note Provider Note: Called to see the patient in respiratory distress Patient has dementia and cannot give a history She cannot tell us if she has chest pain She appears in mild to moderate respiratory distress using accessory muscles Blood pressure is 150/80 Patient was placed on the monitor On physical examination she has rales bilaterally Impression acute pulmonary edema Review of the chart shows that the BNP was over 20,000 yesterday patient had been placed on Lasix 40 mg every 12 We will give her 60 mg IV push of Lasix now Half an inch of Nitropaste We will monitor her BiPAP support Stat chest x-ray and cardiac enzymes Obrien catheter will be placed Patient to be reevaluated later Noted that she is DNR/DNI
[2017-11-06] MEDS ORDERED: FUROSEMIDE INJ/PF 100 MG/10 ML SDV IV ONE (08:45)
[2017-11-06] MEDS ORDERED: NITROGLYCERIN 2% OINTMENT 1 GM PACKET TP ONE (09:00)
[2017-11-06] MEDS: PHOSPHORUS #1 250 MG TABLET PO SCH ×3 (09:28→15:20)
--- NOTE | 2017-11-06 09:32 | RADIOLOGY REPORT (SQ) ---
EXAM DESCRIPTION: CHEST SINGLE VIEW COMPLETED DATE/TIME: 11/06/2017 9:14 am REASON FOR STUDY: CHF COMPARISON: Chest films 10/31/2017, 11/03/2017 EXAM PARAMETERS: NUMBER OF VIEWS: One view. TECHNIQUE: Single frontal radiographic view of the chest acquired. RADIATION DOSE: NA LIMITATIONS: None. FINDINGS: LUNGS AND PLEURA: Diffuse bilateral airspace disease is present, increased compared to 10/07. Findings are worrisome for worsening pulmonary edema. Pneumonia or ARDS could not be exclud ed. Trace stable right pleural effusion. No pneumothorax. MEDIASTINUM AND HILAR STRUCTURES: No masses. Contour normal. HEART AND VASCULAR STRUCTURES: Post sternotomy and aortic valve replacement BONES: No acute findings. HARDWARE: None in the chest. OTHER: No other significant finding. IMPRESSION: Worsening bilateral airspace disease, worrisome for pulmonary edema. Trace right stable pleural effusion TECHNICAL DOCUMENTATION: JOB ID: [id number] [employer]- All Rights Reserved
[2017-11-06] MEDS: DONEPEZIL HCL 5 MG TABLET PO SCH (09:36)
[2017-11-06] MEDS: CARVEDILOL 6.25 MG TABLET PO SCH ×2 (09:37→22:09)
[2017-11-06] MEDS: FAMOTIDINE 20 MG TABLET PO SCH ×2 (09:37→22:11)
[2017-11-06] MEDS: ASPIRIN 81 MG TABLET, CHEWABLE PO SCH (09:37)
[2017-11-06] MEDS: MULTIVITAMIN TABLET PO SCH (09:37)
[2017-11-06] MEDS: BUSPIRONE HCL 10 MG TABLET PO SCH ×2 (09:37→17:34)
[2017-11-06] MEDS: DOCUSATE SODIUM 100 MG CAPSULE PO SCH (09:37)
[2017-11-06] MEDS: POTASSIUM CHLORIDE 10 MEQ TABLET.SA PO SCH ×2 (09:42→22:09)
[2017-11-06] MEDS: ENOXAPARIN SODIUM INJ 40 MG/0.4 ML DISP.SYRIN SUBCUT SCH (09:43)
[2017-11-06] MEDS: FUROSEMIDE INJ/PF 100 MG/10 ML SDV IV SCH ×2 (09:43→22:11)
--- NOTE | 2017-11-06 10:38 | Progress Note ---
Provider Note Provider Note: Review of chest x-rays shows a right upper lobe infiltrate on 11/03 We will treat the patient for hospital-acquired pneumonia CT of the chest without contrast to be performed when respiratory status improves
[2017-11-06] MEDS ORDERED: VANCOMYCIN HCL 0 MG in DEXTROSE 5%-WATER 250 ML IV NR (10:45)
[2017-11-06] MEDS: PIPERACILLIN SODIUM/TAZOBACTAM 3.375 GM in NORMAL SALINE 100 ML IV SCH ×2 (12:42→17:34)
--- NOTE | 2017-11-06 12:51 | EKG REPORT ---
SEVERITY:- ABNORMAL ECG - SINUS RHYTHM LEFT ATRIAL ABNORMALITY LEFT ANTERIOR FASCICULAR BLOCK LEFT VENTRICULAR HYPERTROPHY ANTERIOR Q WAVES, POSSIBLY DUE TO LVH NEW ST ELEVATIONS IN ANTEROLATERAL LEADS , CLINICAL CORRELATION NEEDED TO, R/O INTERVAL ANTERIOR WA BETWEEN 10/31/17 AND TODAY. : Confirmed by: Jayy Wynn MD 06-Nov-2017 12:50:46
[2017-11-06] MEDS: ACETAMINOPHEN 325 MG TABLET PO PRN (14:56)
[2017-11-06] MEDS ORDERED: VANCOMYCIN HCL 1,000 MG in DEXTROSE 5%-WATER 250 ML IV SCH (15:00)
[2017-11-06] MEDS ORDERED: AMLODIPINE BESYLATE 2.5 MG TABLET PO ONE (15:30)
[2017-11-06] MEDS ORDERED: AMLODIPINE BESYLATE 2.5 MG TABLET PO SCH (22:00)
[2017-11-06] MEDS: TRAZODONE HCL 50 MG TABLET PO SCH (22:09)
[2017-11-06] MEDS: LISINOPRIL 10 MG TABLET PO SCH (22:16)
[2017-11-07] MEDS: PIPERACILLIN SODIUM/TAZOBACTAM 3.375 GM in NORMAL SALINE 100 ML IV SCH ×4 (01:48→18:45)
[2017-11-07] MEDS: LEVOTHYROXINE SODIUM 0.05 MG TABLET PO SCH (06:15)
[2017-11-07 07:17] LABS: ABSOLUTE LYMPHOCYTES (AUTO) 0.3 10^3/uL (0.5-4.7); ABSOLUTE MONOCYTES (AUTO) 0.2 10^3/uL (0.1-1.4); ABSOLUTE NEUT (AUTO) 4.4 10^3/uL (1.7-8.2); BASOPHILS % (AUTO) 0.1 % (0-2); HEMOGLOBIN 12.5 g/dL (12.0-15.5); LYMPHOCYTES % (AUTO) 6.6 % (13-45); MEAN CORPUSCULAR HEMOGLOBIN 28.8 pg (27.0-33.4); MEAN CORPUSCULAR HGB CONC 33.7 g/dL (32.0-36.0); MEAN CORPUSCULAR VOLUME 85 fl (80-97); MONOCYTES % (AUTO) 3.5 % (3-13); PLATELET COUNT 187 10^3/uL (150-450); RED BLOOD COUNT 4.34 10^6/uL (3.72-5.28); RED CELL DISTRIBUTION WIDTH 13.5 % (11.5-14.0); SEGMENTED NEUTROPHILS % (AUTO) 89.8 % (42-78); TOTAL CELLS COUNTED % (AUTO) 100 %; WHITE BLOOD COUNT 4.9 10^3/uL (4.0-10.5)
[2017-11-07 07:40] LABS: BLOOD UREA NITROGEN 40 mg/dL (7-20); CHLORIDE 87 mmol/L (98-107); GLUCOSE 189 mg/dL (75-110); MAGNESIUM 1.5 mg/dL (1.6-2.3); PHOSPHORUS 2.8 mg/dL (2.5-4.5); POTASSIUM 3.1 mmol/L (3.6-5.0); SODIUM 137.2 mmol/L (137-145)
[2017-11-07 07:54] LABS: ANION GAP 6 (5-19)
[2017-11-07 07:56] LABS: CARBON DIOXIDE 44 mmol/L (22-30)
[2017-11-07] MEDS ORDERED: FUROSEMIDE INJ/PF 100 MG/10 ML SDV IV SCH (09:05)
[2017-11-07] MEDS ORDERED: AMLODIPINE BESYLATE 2.5 MG TABLET PO SCH (09:05)
[2017-11-07] MEDS: PHOSPHORUS #1 250 MG TABLET PO SCH ×3 (10:06→16:11)
[2017-11-07] MEDS: POTASSIUM CHLORIDE 10 MEQ TABLET.SA PO SCH (10:38)
[2017-11-07] MEDS: DOCUSATE SODIUM 100 MG CAPSULE PO SCH (10:39)
[2017-11-07] MEDS: MULTIVITAMIN TABLET PO SCH (10:39)
[2017-11-07] MEDS: CARVEDILOL 6.25 MG TABLET PO SCH ×2 (10:40→21:14)
[2017-11-07] MEDS: DONEPEZIL HCL 5 MG TABLET PO SCH (10:40)
[2017-11-07] MEDS: LISINOPRIL 10 MG TABLET PO SCH ×2 (10:41→21:14)
[2017-11-07] MEDS: FAMOTIDINE 20 MG TABLET PO SCH ×2 (10:41→21:14)
[2017-11-07] MEDS: ASPIRIN 81 MG TABLET, CHEWABLE PO SCH (10:41)
[2017-11-07] MEDS: BUSPIRONE HCL 10 MG TABLET PO SCH ×2 (10:42→18:45)
[2017-11-07] MEDS: MAGNESIUM OXIDE 400 MG TABLET PO SCH ×2 (10:42→18:45)
[2017-11-07] MEDS: ENOXAPARIN SODIUM INJ 40 MG/0.4 ML DISP.SYRIN SUBCUT SCH (11:15)
[2017-11-07] MEDS: FUROSEMIDE INJ/PF 40 MG/4 ML SDV IV SCH ×2 (11:26→21:14)
[2017-11-07] MEDS: ACETAMINOPHEN 325 MG TABLET PO PRN (11:26)
[2017-11-07] MEDS: MAGNESIUM SULFATE/D5W 1 GM/100 ML RTUPB IV SCH ×2 (11:27→12:26)
[2017-11-07] MEDS: TRAMADOL HCL 50 MG TABLET PO PRN ×2 (11:27→18:45)
[2017-11-07] MEDS ORDERED: VANCOMYCIN HCL 750 MG in DEXTROSE 5%-WATER 250 ML IV SCH (15:00)
--- NOTE | 2017-11-07 15:21 | PDOC PROGRESS REPORT ---
Subjective Progress Note for:: 11/07/17 Subjective:: No complaints Review of systems All organ systems evaluated and negative except as in subjective. All significant laboratories and diagnostics have been reviewed Reason For Visit: HYPONATREMIA Physical Exam Vital Signs: Temp Pulse Resp BP Pulse Ox 98.6 F 92 20 163/89 H 99 11/07/17 07:53 11/07/17 07:53 11/07/17 07:53 11/07/17 07:53 11/07/17 07:53 Intake & Output 11/06/17 11/07/17 11/08/17 06:59 06:59 06:59 Intake Total 1000 487 Output Total 1550 2075 Balance -550 -1588 Weight 44 kg General appearance: PRESENT: no acute distress, cooperative, thin Head exam: PRESENT: atraumatic, normocephalic Eye exam: PRESENT: conjunctiva pink, EOMI, PERRLA Mouth exam: PRESENT: moist Neck exam: PRESENT: full ROM. ABSENT: JVD, lymphadenopathy, tenderness Respiratory exam: PRESENT: crackles - Adequate movement of air. ABSENT: tachypnea, unlabored Cardiovascular exam: PRESENT: RRR, systolic murmur. ABSENT: diastolic murmur Vascular exam: PRESENT: normal capillary refill GI/Abdominal exam: PRESENT: normal bowel sounds, soft, tenderness Extremities exam: PRESENT: full ROM. ABSENT: joint swelling, pedal edema Musculoskeletal exam: ABSENT: ambulatory Neurological exam: PRESENT: alert, awake, oriented to person Psychiatric exam: PRESENT: appropriate affect, normal mood Skin exam: PRESENT: intact, normal color Results Laboratory Results: 11/07/17 06:50 11/07/17 06:50 11/07/17 11/07/17 06:50 06:50 WBC 4.9 RBC 4.34 Hgb 12.5 Hct 37.0 MCV 85 MCH 28.8 MCHC 33.7 RDW 13.5 Plt Count 187 Seg Neutrophils % 89.8 H Lymphocytes % 6.6 L Monocytes % 3.5 Eosinophils % 0.0 Basophils % 0.1 Absolute Neutrophils 4.4 Absolute Lymphocytes 0.3 L Absolute Monocytes 0.2 Absolute Eosinophils 0.0 Absolute Basophils 0.0 Sodium 137.2 Potassium 3.1 L Chloride 87 L Carbon Dioxide 44 H* Anion Gap 6 BUN 40 H Creatinine 0.81 Est GFR ( Amer) > 60 Est GFR (Non-Af Amer) > 60 Glucose 189 H Calcium 8.0 L Phosphorus 2.8 Magnesium 1.5 L 11/01/17 13:29 Blood Blood Culture - Final NO GROWTH IN 5 DAYS 11/01/17 11:32 Blood Blood Culture - Final NO GROWTH IN 5 DAYS 11/05/17 11/06/17 11/06/17 05:15 09:37 15:48 Troponin I 0.159 0.326 NT-Pro-B Natriuret Pep [id number] H 11/06/17 20:15 Troponin I 0.321 NT-Pro-B Natriuret Pep Impressions: Chest X-Ray 11/06/17 00:00 IMPRESSION: Worsening bilateral airspace disease, worrisome for pulmonary edema. Trace right stable pleural effusion Assessment & Plan - Diagnosis (1) NSTEMI (non-ST elevated myocardial infarction) Is this a current diagnosis for this admission?: Yes Plan: Due to myocardial demand ischemia in the setting of failure (2) Pulmonary edema Qualifiers: Chronicity: acute Qualified Code(s): J81.0 - Acute pulmonary edema Is this a current diagnosis for this admission?: Yes Plan: Decrease Lasix IV. Request a follow-up chest x-ray (3) Hyponatremia Is this a current diagnosis for this admission?: Yes Plan: Improving (4) Pneumonia Qualifiers: Pneumonia type: due to unspecified organism Laterality: unspecified laterality Lung location: unspecified part of lung Qualified Code(s): J18.9 - Pneumonia, unspecified organism Is this a current diagnosis for this admission?: Yes Plan: Will order follow up cxr and continue antibiotic regimen for now (5) Dementia Qualifiers: Dementia type: Alzheimer's disease Alzheimer's disease onset: unspecified onset Dementia behavioral disturbance: without behavioral disturbance Qualified Code(s): G30.9 - Alzheimer's disease, unspecified; F02.80 - Dementia in other diseases classified elsewhere without behavioral disturbance; F02.80 - Dementia in other diseases classified elsewhere without behavioral disturbance; F02.80 - Dementia in other diseases classified elsewhere without behavioral disturbance Is this a current diagnosis for this admission?: Yes Plan: Supportive (6) 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 Is this a current diagnosis for this admission?: Yes Plan: Improving (7) HTN (hypertension) Qualifiers: Hypertension type: essential hypertension Qualified Code(s): I10 - Essential (primary) hypertension Is this a current diagnosis for this admission?: Yes Plan: Continue current regimen (8) Hypokalemia Is this a current diagnosis for this admission?: Yes Plan: Replace orally and trend - Time Time Spent with patient: 15-24 minutes Medications reviewed and adjusted accordingly: Yes Anticipated discharge: SNF Within: within 72 hours - Inpatient Certification Based on my medical assessment, after consideration of the patient's comorbidities, presenting symptoms, or acuity I expect that the services needed warrant INPATIENT care.: Yes I certify that my determination is in accordance with my understanding of Medicare's requirements for reasonable and necessary INPATIENT services [42 CFR 412.3e].: Yes Medical Necessity: Need Close Monitoring Due to Risk of Patient Decompensation - IV lasix
--- NOTE | 2017-11-07 20:24 | PDOC PROGRESS REPORT ---
Subjective Progress Note for:: 11/06/17 Subjective:: Patient remains confused. Patient noted to be in respiratory distress this morning. She did respond to IV Lasix. Patient not noted to have any chest discomfort as reported by relatives. Patient not noted to have any any other significant discomfort. Patient is maintaining sinus rhythm. Review of systems: Rest review of systems negative. Medications: Medications have been reviewed. Reason For Visit: HYPONATREMIA Physical Exam Vital Signs: Temp Pulse Resp BP Pulse Ox 97.8 F 65 20 123/53 L 99 11/06/17 16:27 11/06/17 16:27 11/06/17 16:27 11/06/17 16:27 11/06/17 16:27 Intake & Output 11/05/17 11/06/17 11/07/17 06:59 06:59 06:59 Intake Total 1095 1000 100 Output Total 450 1550 800 Balance 645 -550 -700 Weight 43.4 kg 44 kg Exam: GENERAL: Thin built in respiratory distress. Patient is alert but not oriented to place or time but oriented to person. HEAD: Atraumatic, normocephalic. EYES: Pupils equal round and reactive to light, extraocular movements intact, sclera anicteric, conjunctiva are normal. ENT: TMs normal, nares patent, oropharynx clear without exudates. Moist mucous membranes. No oral ulcerations or bleeding gums noted NECK: supple without lymphadenopathy or JVD. Trachea is central. No cervical or axillary lymphadenopathy noted. Carotids are 2+ LUNGS: Breath sounds bibasilar fine crackles at up to mid lung. No significant dullness noted. CHEST: Palpation of chest wall shows no significant chest wall tenderness. 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 ABDOMEN: Soft, no significant tenderness appreciated, normoactive bowel sounds. No guarding, no rebound. No rigidity noted . No masses appreciated. EXTREMITIES: Pedal pulses are 1-2+, no calf tenderness noted, 1+ pedal edema noted. No clubbing or cyanosis. NEUROLOGICAL: Patient is alert but is not able to participate in neurological exam because of patient's current mental status PSYCH: Patient cannot participate in a neurologic and psych exam because of the patient's current mental status SKIN: No significant ecchymosis, rash, ulcerations or signs of pruritus noted. MUSCULOSKELETAL EXAM: No significant joint swelling noted. Results Laboratory Results: 11/06/17 05:33 11/06/17 05:33 11/06/17 11/06/17 05:33 05:33 WBC 11.0 H RBC 4.51 Hgb 13.2 Hct 38.8 MCV 86 MCH 29.3 MCHC 34.1 RDW 13.5 Plt Count 178 Seg Neutrophils % 91.6 H Lymphocytes % 5.8 L Monocytes % 2.6 L Eosinophils % 0.0 Basophils % 0.0 Absolute Neutrophils 10.0 H Absolute Lymphocytes 0.6 Absolute Monocytes 0.3 Absolute Eosinophils 0.0 Absolute Basophils 0.0 Sodium 133.4 L Potassium 4.1 Chloride 87 L Carbon Dioxide 36 H Anion Gap 10 BUN 34 H Creatinine 0.59 Est GFR ( Amer) > 60 Est GFR (Non-Af Amer) > 60 Glucose 289 H Calcium 8.3 L Phosphorus 3.4 Magnesium 1.6 11/01/17 13:29 Blood Blood Culture - Final NO GROWTH IN 5 DAYS 11/01/17 11:32 Blood Blood Culture - Final NO GROWTH IN 5 DAYS 11/05/17 11/06/17 11/06/17 05:15 09:37 15:48 Troponin I 0.159 0.326 NT-Pro-B Natriuret Pep [id number] H Impressions: Chest X-Ray 11/06/17 00:00 IMPRESSION: Worsening bilateral airspace disease, worrisome for pulmonary edema. Trace right stable pleural effusion Assessment & Plan - Diagnosis (1) Aortic valve replaced Is this a current diagnosis for this admission?: Yes (2) Hyponatremia Is this a current diagnosis for this admission?: Yes (3) Congestive heart failure Qualifiers: Congestive heart failure type: unspecified Is this a current diagnosis for this admission?: Yes (4) Pneumonia Qualifiers: Pneumonia type: due to unspecified organism Laterality: unspecified laterality Lung location: unspecified part of lung Qualified Code(s): J18.9 - Pneumonia, unspecified organism Is this a current diagnosis for this admission?: Yes - Notes Notes: Patient noted to have CHF. Patient did response quickly to IV Lasix. Patient also has pneumonia. I feel patient could be having intermittent aspiration. Patient does have significant valvular abnormalities and underlying CAD but felt not a candidate for any invasive evaluation. At this point patient is being managed medically and did improve quite significantly this morning after IV Lasix. Continue IV Lasix dose. Recommend periodic chest x-ray. - Time Time with patient: 15-25 minutes - CODE STATUS : was discussed, patient remains DO NOT RESUSCITATE. Surrogate decision-maker unchanged. Multiple medical problems were addressed. More than 50% of the time spent coordinating care, discussing management plans with involved caregivers. Management plans discussed with involved personnels. Medical decision making was of moderate to high complexity, patient's has multiple comorbidities. Medications reviewed and adjusted accordingly: Yes
--- NOTE | 2017-11-07 20:29 | PDOC PROGRESS REPORT ---
Subjective Progress Note for:: 11/07/17 Subjective:: Patient remains confused. Patient seems to be doing better than yesterday with breathing more easily. Patient's granddaughter in the room today. Patient is maintaining sinus rhythm. Review of systems: Rest review of systems negative. Medications: Medications have been reviewed. Reason For Visit: HYPONATREMIA Physical Exam Vital Signs: Temp Pulse Resp BP Pulse Ox 99.4 F 93 20 158/84 H 93 11/07/17 16:00 11/07/17 16:00 11/07/17 16:00 11/07/17 16:00 11/07/17 16:00 Intake & Output 11/06/17 11/07/17 11/08/17 06:59 06:59 06:59 Intake Total 2169 453 4700 Output Total 1550 2075 1825 Balance -550 -2470 -095 Weight 44 kg Exam: GENERAL: Thin built and in mild respiratory distress. Patient is alert but not oriented to place or time but oriented to person. HEAD: Atraumatic, normocephalic. EYES: Pupils equal round and reactive to light, extraocular movements intact, sclera anicteric, conjunctiva are normal. ENT: TMs normal, nares patent, oropharynx clear without exudates. Moist mucous membranes. No oral ulcerations or bleeding gums noted NECK: supple without lymphadenopathy or JVD. Trachea is central. No cervical or axillary lymphadenopathy noted. Carotids are 2+ LUNGS: Breath sounds bibasilar fine crackles at bases. No significant dullness noted. CHEST: Palpation of chest wall shows no significant chest wall tenderness. 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 ABDOMEN: Soft, no significant tenderness appreciated, normoactive bowel sounds. No guarding, no rebound. No rigidity noted . No masses appreciated. EXTREMITIES: Pedal pulses are 1-2+, no calf tenderness noted, Trace + pedal edema noted. No clubbing or cyanosis. NEUROLOGICAL: Patient is alert but is not able to participate in neurological exam because of patient's current mental status PSYCH: Patient cannot participate in a neurologic and psych exam because of the patient's current mental status SKIN: No significant ecchymosis, rash, ulcerations or signs of pruritus noted. MUSCULOSKELETAL EXAM: No significant joint swelling noted. Results Laboratory Results: 11/07/17 06:50 11/07/17 06:50 11/07/17 11/07/17 06:50 06:50 WBC 4.9 RBC 4.34 Hgb 12.5 Hct 37.0 MCV 85 MCH 28.8 MCHC 33.7 RDW 13.5 Plt Count 187 Seg Neutrophils % 89.8 H Lymphocytes % 6.6 L Monocytes % 3.5 Eosinophils % 0.0 Basophils % 0.1 Absolute Neutrophils 4.4 Absolute Lymphocytes 0.3 L Absolute Monocytes 0.2 Absolute Eosinophils 0.0 Absolute Basophils 0.0 Sodium 137.2 Potassium 3.1 L Chloride 87 L Carbon Dioxide 44 H* Anion Gap 6 BUN 40 H Creatinine 0.81 Est GFR ( Amer) > 60 Est GFR (Non-Af Amer) > 60 Glucose 189 H Calcium 8.0 L Phosphorus 2.8 Magnesium 1.5 L 11/05/17 11/06/17 11/06/17 05:15 09:37 15:48 Troponin I 0.159 0.326 NT-Pro-B Natriuret Pep [id number] H 11/06/17 20:15 Troponin I 0.321 NT-Pro-B Natriuret Pep EKG Comments: Sinus rhythm without any sustained tacky or bradycardia arrhythmias. Mild intermittent tachycardia noted Impressions: Chest X-Ray 11/06/17 00:00 IMPRESSION: Worsening bilateral airspace disease, worrisome for pulmonary edema. Trace right stable pleural effusion Assessment & Plan - Diagnosis (1) Aortic valve replaced Is this a current diagnosis for this admission?: Yes (2) Hyponatremia Is this a current diagnosis for this admission?: Yes (3) Congestive heart failure Qualifiers: Congestive heart failure type: unspecified Is this a current diagnosis for this admission?: Yes (4) Pneumonia Qualifiers: Pneumonia type: due to unspecified organism Laterality: unspecified laterality Lung location: unspecified part of lung Qualified Code(s): J18.9 - Pneumonia, unspecified organism Is this a current diagnosis for this admission?: Yes - Notes Notes: Patient remains significantly ill but is quite debilitated. Management plans were discussed with Dr. Jang. Continue antibiotic and diuretic therapy. Continue with oxygen supplementation and supportive care. I will be away over the weekend but available via phone consultation. I will return to round on Friday. - Time Time with patient: 15-25 minutes - CODE STATUS : was discussed, patient remains DO NOT RESUSCITATE. Surrogate decision-maker unchanged. Multiple medical problems were addressed. More than 50% of the time spent coordinating care, discussing management plans with involved caregivers. Management plans discussed with involved personnels. Medical decision making was of moderate to high complexity, patient's has multiple comorbidities. Medications reviewed and adjusted accordingly: Yes
[2017-11-07] MEDS: TRAZODONE HCL 50 MG TABLET PO SCH (21:14)
[2017-11-07] MEDS: AMLODIPINE BESYLATE 5 MG TABLET PO SCH (21:14)
[2017-11-07] MEDS ORDERED: POTASSIUM CHLORIDE 10 MEQ TABLET.SA PO SCH (22:00)
[2017-11-08] MEDS: TRAMADOL HCL 50 MG TABLET PO PRN ×2 (00:23→09:43)
[2017-11-08] MEDS: PIPERACILLIN SODIUM/TAZOBACTAM 3.375 GM in NORMAL SALINE 100 ML IV SCH ×2 (00:23→05:17)
[2017-11-08] MEDS: LEVOTHYROXINE SODIUM 0.05 MG TABLET PO SCH (05:17)
[2017-11-08 05:27] LABS: ABSOLUTE LYMPHOCYTES (AUTO) 0.5 10^3/uL (0.5-4.7); ABSOLUTE MONOCYTES (AUTO) 0.3 10^3/uL (0.1-1.4); ABSOLUTE NEUT (AUTO) 4.5 10^3/uL (1.7-8.2); BASOPHILS % (AUTO) 0.2 % (0-2); EOSINOPHILS % (AUTO) 0.1 % (0-6); HEMATOCRIT 34.8 % (36.0-47.0); HEMOGLOBIN 11.8 g/dL (12.0-15.5); LYMPHOCYTES % (AUTO) 10.2 % (13-45); MEAN CORPUSCULAR HEMOGLOBIN 29.2 pg (27.0-33.4); MEAN CORPUSCULAR VOLUME 86 fl (80-97); MONOCYTES % (AUTO) 5.2 % (3-13); PLATELET COUNT 200 10^3/uL (150-450); RED BLOOD COUNT 4.06 10^6/uL (3.72-5.28); RED CELL DISTRIBUTION WIDTH 13.3 % (11.5-14.0); SEGMENTED NEUTROPHILS % (AUTO) 84.3 % (42-78); TOTAL CELLS COUNTED % (AUTO) 100 %; WHITE BLOOD COUNT 5.4 10^3/uL (4.0-10.5)
[2017-11-08 05:53] LABS: BLOOD UREA NITROGEN 40 mg/dL (7-20); CALCIUM 7.7 mg/dL (8.4-10.2); CHLORIDE 83 mmol/L (98-107); GLUCOSE 255 mg/dL (75-110); SODIUM 134.8 mmol/L (137-145)
[2017-11-08 06:02] LABS: ANION GAP 0 (5-19)
[2017-11-08 06:04] LABS: POTASSIUM 2.8 mmol/L (3.6-5.0)
[2017-11-08 06:05] LABS: CARBON DIOXIDE 52 mmol/L (22-30)
[2017-11-08] MEDS ORDERED: POTASSIUM CHLORIDE 20 MEQ/50 ML RTU IV SCH (07:00)
[2017-11-08] MEDS ORDERED: NORMAL SALINE 1000 ML 2,000 ML IV ONE (07:00)
[2017-11-08] MEDS ORDERED: POTASSIUM CHLORIDE 10 MEQ TABLET.SA PO ONE (07:00)
[2017-11-08] MEDS ORDERED: DEXTROSE 50%-WATER 25 GM/50 ML DISP.SYRIN IV PRN ×2 (07:37)
[2017-11-08] MEDS ORDERED: GLUCAGON,HUMAN RECOMB 1 MG INJ IM PRN (07:37)
[2017-11-08] MEDS ORDERED: DEXTROSE 40% GEL 15 GM TUBE PO PRN ×2 (07:37)
--- NOTE | 2017-11-08 08:02 | RADIOLOGY REPORT (SQ) ---
EXAM DESCRIPTION: CHEST SINGLE VIEW COMPLETED DATE/TIME: 11/08/2017 7:40 am REASON FOR STUDY: follow up COMPARISON: Chest x-ray 11/06/2017. EXAM PARAMETERS: NUMBER OF VIEWS: One view. TECHNIQUE: Single frontal radiographic view of the chest acquired. RADIATION DOSE: NA LIMITATIONS: None. FINDINGS: LUNGS AND PLEURA: Mild interval decrease in the bilateral airspace opacities. Trace right pleural effusion. No pneumothorax. MEDIASTINUM AND HILAR STRUCTURES: No masses. Contour normal. HEART AND VASCULAR STRUCTURES: The heart is upper normal limit in size. BONES: No acute findings. HARDWARE: Sternotomy wires and cardiac valve prosthesis are noted. IMPRESSION: Interval improvement in the aeration of the lungs with mild decrease in the bilateral ai rspace opacities. Trace right pleural effusion. TECHNICAL DOCUMENTATION: JOB ID: [id number] [employer]- All Rights Reserved
[2017-11-08] MEDS: ASPIRIN 81 MG TABLET, CHEWABLE PO SCH (09:42)
[2017-11-08] MEDS: BUSPIRONE HCL 10 MG TABLET PO SCH ×2 (09:42→18:06)
[2017-11-08] MEDS: MAGNESIUM OXIDE 400 MG TABLET PO SCH ×2 (09:42→18:06)
[2017-11-08] MEDS: FAMOTIDINE 20 MG TABLET PO SCH ×2 (09:42→21:48)
[2017-11-08] MEDS: DOCUSATE SODIUM 100 MG CAPSULE PO SCH (09:43)
[2017-11-08] MEDS: DONEPEZIL HCL 5 MG TABLET PO SCH (09:43)
[2017-11-08] MEDS: POTASSIUM CHLORIDE 10 MEQ TABLET.SA PO SCH ×3 (09:43→18:06)
[2017-11-08] MEDS: MULTIVITAMIN TABLET PO SCH (09:43)
[2017-11-08] MEDS: PHOSPHORUS #1 250 MG TABLET PO SCH ×3 (09:43→18:06)
[2017-11-08] MEDS: CARVEDILOL 6.25 MG TABLET PO SCH ×2 (09:44→21:48)
[2017-11-08] MEDS: ENOXAPARIN SODIUM INJ 40 MG/0.4 ML DISP.SYRIN SUBCUT SCH (09:46)
[2017-11-08] MEDS: LISINOPRIL 10 MG TABLET PO SCH ×2 (09:46→21:48)
--- NOTE | 2017-11-08 13:10 | PDOC PROGRESS REPORT ---
Subjective Progress Note for:: 11/08/17 Subjective:: No complaints Review of systems All organ systems evaluated and negative except as in subjective. All significant laboratories and diagnostics have been reviewed Reason For Visit: HYPONATREMIA Physical Exam Vital Signs: Temp Pulse Resp BP Pulse Ox 98.1 F 83 18 129/47 H 98 11/07/17 23:19 11/08/17 02:00 11/08/17 04:50 11/07/17 23:19 11/08/17 04:50 Intake & Output 11/07/17 11/08/17 11/09/17 06:59 06:59 06:59 Intake Total 487 1760 Output Total 2077 1825 Balance -1588 -65 General appearance: PRESENT: no acute distress, cooperative, thin Head exam: PRESENT: atraumatic, normocephalic Eye exam: PRESENT: EOMI, PERRLA Ear exam: PRESENT: normal external ear exam Mouth exam: PRESENT: moist Neck exam: PRESENT: full ROM. ABSENT: JVD, lymphadenopathy, tenderness Respiratory exam: PRESENT: clear to auscultation alfreda Cardiovascular exam: PRESENT: RRR, systolic murmur. ABSENT: diastolic murmur Vascular exam: PRESENT: normal capillary refill GI/Abdominal exam: PRESENT: normal bowel sounds, soft. ABSENT: tenderness Extremities exam: PRESENT: full ROM. ABSENT: pedal edema Musculoskeletal exam: PRESENT: ambulatory Neurological exam: PRESENT: alert, awake, oriented to person Psychiatric exam: PRESENT: appropriate affect, normal mood Skin exam: PRESENT: intact, normal color Results Laboratory Results: 11/08/17 04:23 11/08/17 04:23 11/07/17 11/08/17 11/08/17 06:50 04:23 04:23 WBC 5.4 RBC 4.06 Hgb 11.8 L Hct 34.8 L MCV 86 MCH 29.2 MCHC 34.0 RDW 13.3 Plt Count 200 Seg Neutrophils % 84.3 H Lymphocytes % 10.2 L Monocytes % 5.2 Eosinophils % 0.1 Basophils % 0.2 Absolute Neutrophils 4.5 Absolute Lymphocytes 0.5 Absolute Monocytes 0.3 Absolute Eosinophils 0.0 Absolute Basophils 0.0 Sodium 137.2 134.8 L Potassium 3.1 L 2.8 L* Chloride 87 L 83 L Carbon Dioxide 44 H* 52 H* Anion Gap 6 0 L BUN 40 H 40 H Creatinine 0.81 0.87 Est GFR ( Amer) > 60 > 60 Est GFR (Non-Af Amer) > 60 > 60 Glucose 189 H 255 H Calcium 8.0 L 7.7 L Phosphorus 2.8 Magnesium 1.5 L 2.0 11/05/17 11/06/17 11/06/17 05:15 09:37 15:48 Troponin I 0.159 0.326 NT-Pro-B Natriuret Pep [id number] H 11/06/17 20:15 Troponin I 0.321 NT-Pro-B Natriuret Pep Assessment & Plan - Diagnosis (1) NSTEMI (non-ST elevated myocardial infarction) Is this a current diagnosis for this admission?: Yes Plan: Due to myocardial demand ischemia in the setting of failure (2) Pulmonary edema Qualifiers: Chronicity: acute Qualified Code(s): J81.0 - Acute pulmonary edema Is this a current diagnosis for this admission?: Yes Plan: Discontinue Lasix IV due to severe metabolic alkalosis. Will order a repeat BNP (3) Hyponatremia Is this a current diagnosis for this admission?: Yes Plan: Stable (4) Pneumonia Qualifiers: Pneumonia type: due to unspecified organism Laterality: unspecified laterality Lung location: unspecified part of lung Qualified Code(s): J18.9 - Pneumonia, unspecified organism Is this a current diagnosis for this admission?: Yes Plan: To change to levaquin oral. Still presentation is more consistent with fluid overload. (5) Dementia Qualifiers: Dementia type: Alzheimer's disease Alzheimer's disease onset: unspecified onset Dementia behavioral disturbance: without behavioral disturbance Qualified Code(s): G30.9 - Alzheimer's disease, unspecified; F02.80 - Dementia in other diseases classified elsewhere without behavioral disturbance; F02.80 - Dementia in other diseases classified elsewhere without behavioral disturbance; F02.80 - Dementia in other diseases classified elsewhere without behavioral disturbance Is this a current diagnosis for this admission?: Yes Plan: Supportive. Stable. Discontinue xanax (6) 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 Is this a current diagnosis for this admission?: Yes Plan: Clinically improving. Patient also having a grade III diastolic dysfunction contributing to presentation. (7) HTN (hypertension) Qualifiers: Hypertension type: essential hypertension Qualified Code(s): I10 - Essential (primary) hypertension Is this a current diagnosis for this admission?: Yes Plan: Continue current regimen. Improving (8) Hypokalemia Is this a current diagnosis for this admission?: Yes Plan: Replace orally and trend (9) 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 Is this a current diagnosis for this admission?: Yes Plan: Also contributing to presentation - Time Time Spent with patient: 15-24 minutes Medications reviewed and adjusted accordingly: Yes Anticipated discharge: SNF Within: within 72 hours - Inpatient Certification Based on my medical assessment, after consideration of the patient's comorbidities, presenting symptoms, or acuity I expect that the services needed warrant INPATIENT care.: Yes I certify that my determination is in accordance with my understanding of Medicare's requirements for reasonable and necessary INPATIENT services [42 CFR 412.3e].: Yes Medical Necessity: Need Close Monitoring Due to Risk of Patient Decompensation, Need For Continuous Telemetry Monitoring
[2017-11-08 13:38] LABS: ARTERIAL BLOOD BASE EXCESS 17.5 mmol/L; ARTERIAL BLOOD FIO2 36%; ARTERIAL BLOOD H2CO3 1.68 mmol/L (1.05-1.35); ARTERIAL BLOOD HCO3 43.3 mmol/L (20-26); ARTERIAL BLOOD PCO2 55.8 mmHg (35-45); ARTERIAL BLOOD PH 7.51 (7.35-7.45); ARTERIAL BLOOD PO2 64.9 mmHg (80-100)
[2017-11-08] MEDS ORDERED: ZIPRASIDONE MESYLATE INJ/PF 20 MG SDV IM ONE (16:30)
[2017-11-08 17:46] LABS: ARTERIAL BLOOD BASE EXCESS 16.9 mmol/L; ARTERIAL BLOOD H2CO3 1.61 mmol/L (1.05-1.35); ARTERIAL BLOOD HCO3 42.4 mmol/L (20-26); ARTERIAL BLOOD O2 SATURATION 96.4 % (94-98); ARTERIAL BLOOD PCO2 53.6 mmHg (35-45); ARTERIAL BLOOD PH 7.52 (7.35-7.45); ARTERIAL BLOOD PO2 78.1 mmHg (80-100)
[2017-11-08 18:00] LABS: ARTERIAL BLOOD FIO2 50%
[2017-11-08] MEDS: TRAZODONE HCL 50 MG TABLET PO SCH (21:47)
[2017-11-08] MEDS: AMLODIPINE BESYLATE 5 MG TABLET PO SCH (21:48)
[2017-11-09] MEDS: LEVOTHYROXINE SODIUM 0.05 MG TABLET PO SCH (06:34)
[2017-11-09 07:24] LABS: BLOOD UREA NITROGEN 35 mg/dL (7-20); CALCIUM 8.1 mg/dL (8.4-10.2); CHLORIDE 93 mmol/L (98-107); GLUCOSE 183 mg/dL (75-110); POTASSIUM 3.8 mmol/L (3.6-5.0)
[2017-11-09 07:40] LABS: SODIUM 139.9 mmol/L (137-145)
[2017-11-09 07:51] LABS: ANION GAP 4 (5-19)
[2017-11-09 07:54] LABS: CARBON DIOXIDE 43 mmol/L (22-30)
[2017-11-09] MEDS: PHOSPHORUS #1 250 MG TABLET PO SCH ×3 (08:28→18:10)
[2017-11-09] MEDS: DOCUSATE SODIUM 100 MG CAPSULE PO SCH (10:24)
[2017-11-09] MEDS: LISINOPRIL 10 MG TABLET PO SCH ×2 (10:24→21:03)
[2017-11-09] MEDS: ENOXAPARIN SODIUM INJ 40 MG/0.4 ML DISP.SYRIN SUBCUT SCH (10:24)
[2017-11-09] MEDS: FAMOTIDINE 20 MG TABLET PO SCH ×2 (10:24→21:03)
[2017-11-09] MEDS: MAGNESIUM OXIDE 400 MG TABLET PO SCH ×2 (10:24→18:10)
[2017-11-09] MEDS: DONEPEZIL HCL 5 MG TABLET PO SCH (10:24)
[2017-11-09] MEDS: CARVEDILOL 6.25 MG TABLET PO SCH ×2 (10:24→21:03)
[2017-11-09] MEDS: LEVOFLOXACIN 750 MG TABLET PO SCH (10:24)
[2017-11-09] MEDS: BUSPIRONE HCL 10 MG TABLET PO SCH ×2 (10:25→18:10)
[2017-11-09] MEDS: ASPIRIN 81 MG TABLET, CHEWABLE PO SCH (10:25)
[2017-11-09] MEDS: MULTIVITAMIN TABLET PO SCH (10:25)
[2017-11-09] MEDS: TRAMADOL HCL 50 MG TABLET PO PRN (13:04)
--- NOTE | 2017-11-09 18:37 | PDOC PROGRESS REPORT ---
Subjective Progress Note for:: 11/09/17 Subjective:: Patient is not verbal with me. I cannot obtain subjective or review of systems. Laboratory studies and significant diagnostics have been reviewed by me today. Reason For Visit: HYPONATREMIA Physical Exam Vital Signs: Temp Pulse Resp BP Pulse Ox 97.6 F 87 16 161/70 H 95 11/09/17 15:22 11/09/17 15:22 11/09/17 15:22 11/09/17 15:22 11/09/17 15:22 Intake & Output 11/08/17 11/09/17 11/10/17 06:59 06:59 06:59 Intake Total 1810 1005 180 Output Total 2475 700 360 Balance -665 305 -180 Weight 42.8 kg 42.7 kg General appearance: PRESENT: mild distress, thin Eye exam: PRESENT: conjunctiva pink. ABSENT: scleral icterus Mouth exam: PRESENT: dry mucosa Neck exam: ABSENT: lymphadenopathy Respiratory exam: PRESENT: decreased breath sounds, rales, unlabored. ABSENT: tachypnea, wheezes Cardiovascular exam: PRESENT: RRR Pulses: PRESENT: normal radial pulses GI/Abdominal exam: PRESENT: normal bowel sounds, soft. ABSENT: distended, tenderness Rectal exam: PRESENT: other - Bowel movement during my visit Neurological exam: PRESENT: awake, other - Nonverbal, moving all extremities spontaneously Psychiatric exam: ABSENT: agitated, anxious Skin exam: PRESENT: dry, warm - Redness over the sacrum, stage I decubitus ulcer Results Laboratory Results: 11/08/17 04:23 11/09/17 06:19 11/09/17 06:19 Sodium 139.9 Potassium 3.8 Chloride 93 L Carbon Dioxide 43 H* Anion Gap 4 L BUN 35 H Creatinine 0.67 Est GFR ( Amer) > 60 Est GFR (Non-Af Amer) > 60 Glucose 183 H Calcium 8.1 L 11/05/17 11/06/17 11/06/17 05:15 09:37 15:48 Troponin I 0.159 0.326 NT-Pro-B Natriuret Pep [id number] H 11/06/17 11/09/17 20:15 06:19 Troponin I 0.321 NT-Pro-B Natriuret Pep [id number] H Impressions: Chest X-Ray 11/08/17 07:00 IMPRESSION: Interval improvement in the aeration of the lungs with mild decrease in the bilateral airspace opacities. Trace right pleural effusion. Assessment & Plan - Diagnosis (1) Decubitus ulcer, stage I Qualifiers: Pressure ulcer location: sacral region Qualified Code(s): L89.151 - Pressure ulcer of sacral region, stage 1 Is this a current diagnosis for this admission?: Yes Plan: Padded Allevyn to be placed, specialty mattress ordered to reduce pressure, turning every 2 hours as possible. (2) Dementia Qualifiers: Dementia type: Alzheimer's disease Alzheimer's disease onset: unspecified onset Dementia behavioral disturbance: without behavioral disturbance Qualified Code(s): G30.9 - Alzheimer's disease, unspecified; F02.80 - Dementia in other diseases classified elsewhere without behavioral disturbance; F02.80 - Dementia in other diseases classified elsewhere without behavioral disturbance; F02.80 - Dementia in other diseases classified elsewhere without behavioral disturbance Is this a current diagnosis for this admission?: Yes Plan: Advanced. Pt would likelyy qualify for hospice though family not on board. She is not recovering well from these multiple medical insults. Will cont to treat and cont to speak with family. 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 It looks like patient has contraction alkalosis and diuresis is on hold. She is auto diuresing. We will continue to monitor electrolytes and will diuresis as we are able. When she has dyspnea she tolerates BiPAP well and responds to it well. (4) NSTEMI (non-ST elevated myocardial infarction) Is this a current diagnosis for this admission?: Yes Plan: Troponin trended down. We will continue to monitor for evidence of worsening. (5) Pneumonia Qualifiers: Pneumonia type: due to unspecified organism Laterality: unspecified laterality Lung location: unspecified part of lung Qualified Code(s): J18.9 - Pneumonia, unspecified organism Is this a current diagnosis for this admission?: Yes Plan: Continue levaquin. Repeat chest x-ray in the morning. If patient is not improved we will can consider changing antibiotics for more broad coverage. (6) Pulmonary edema Is this a current diagnosis for this admission?: Yes Plan: Patient has contraction alkalosis. Continue to use BiPAP if needed. Will restart diuresis when it is safe. BMP pending for tomorrow. He is auto diuresing. (7) UTI (urinary tract infection) Qualifiers: Urinary tract infection type: site unspecified Hematuria presence: without hematuria Qualified Code(s): N39.0 - Urinary tract infection, site not specified Is this a current diagnosis for this admission?: Yes Plan: Continue Levaquin for E. coli sensitive to Levaquin - Time Time Spent with patient: 25-34 minutes Anticipated discharge: Home with Homehealth - Inpatient Certification Based on my medical assessment, after consideration of the patient's comorbidities, presenting symptoms, or acuity I expect that the services needed warrant INPATIENT care.: Yes I certify that my determination is in accordance with my understanding of Medicare's requirements for reasonable and necessary INPATIENT services [42 CFR 412.3e].: Yes Medical Necessity: Significant Comorbidiites Make Outpatient Treatment Too Risky , Need Close Monitoring Due to Risk of Patient Decompensation, Risk of Complication if Not Cared For in Hospital
[2017-11-09 19:29] LABS: BLOOD UREA NITROGEN 31 mg/dL (7-20); CHLORIDE 91 mmol/L (98-107); GLUCOSE 248 mg/dL (75-110); POTASSIUM 3.4 mmol/L (3.6-5.0)
[2017-11-09 19:48] LABS: SODIUM 136.9 mmol/L (137-145)
[2017-11-09 19:56] LABS: ANION GAP 5 (5-19)
[2017-11-09 19:58] LABS: CARBON DIOXIDE 41 mmol/L (22-30)
[2017-11-09] MEDS: AMLODIPINE BESYLATE 5 MG TABLET PO SCH (21:03)
[2017-11-09] MEDS: TRAZODONE HCL 50 MG TABLET PO SCH (21:03)
[2017-11-10] MEDS: LEVOTHYROXINE SODIUM 0.05 MG TABLET PO SCH (06:15)
[2017-11-10 07:41] LABS: ANION GAP 6 (5-19); BLOOD UREA NITROGEN 31 mg/dL (7-20); CALCIUM 8.3 mg/dL (8.4-10.2); CARBON DIOXIDE 39 mmol/L (22-30); CHLORIDE 93 mmol/L (98-107); GLUCOSE 191 mg/dL (75-110); POTASSIUM 3.4 mmol/L (3.6-5.0); SODIUM 138.2 mmol/L (137-145)
[2017-11-10] MEDS: PHOSPHORUS #1 250 MG TABLET PO SCH ×3 (08:57→17:15)
[2017-11-10] MEDS: TRAMADOL HCL 50 MG TABLET PO PRN ×2 (08:59→17:13)
--- NOTE | 2017-11-10 11:14 | RADIOLOGY REPORT (SQ) ---
EXAM DESCRIPTION: CHEST SINGLE VIEW COMPLETED DATE/TIME: 11/10/2017 11:03 am REASON FOR STUDY: PULM. EDEMA COMPARISON: Chest films 10/31/2017, 11/03/2017, 11/06/2017, 11/08/2017 EXAM PARAMETERS: NUMBER OF VIEWS: One view. TECHNIQUE: Single frontal radiographic view of the chest acquired. RADIATION DOSE: NA LIMITATIONS: None. FINDINGS: LUNGS AND PLEURA: Persistent bilateral diffuse alveolar infiltrates with relative sparing of the right lower lobe. These are similar compared to 11/08/2017, edema versus pneumonia MEDIASTINUM AND HILAR STRUCTURES: No masses. Contour normal. 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 No cardiomegaly. BONES: No acute findings. HARDWARE: Clips right upper quadrant post cholecystectomy. Sternotomy, aortic valve, clips post CABG OTHER: No other significant finding. IMPRESSION: Stable diffuse bilateral alveolar infiltrates compared to 11/08/2017 TECHNICAL DOCUMENTATION: JOB ID: [id number] [employer]- All Rights Reserved
[2017-11-10] MEDS: DONEPEZIL HCL 5 MG TABLET PO SCH (11:23)
[2017-11-10] MEDS: BUSPIRONE HCL 10 MG TABLET PO SCH ×2 (11:24→17:13)
[2017-11-10] MEDS: LISINOPRIL 10 MG TABLET PO SCH ×2 (11:25→22:31)
[2017-11-10] MEDS: MAGNESIUM OXIDE 400 MG TABLET PO SCH ×2 (11:26→17:12)
[2017-11-10] MEDS: CARVEDILOL 6.25 MG TABLET PO SCH ×2 (11:26→22:31)
[2017-11-10] MEDS: ASPIRIN 81 MG TABLET, CHEWABLE PO SCH (11:26)
[2017-11-10] MEDS: MULTIVITAMIN TABLET PO SCH (11:26)
[2017-11-10] MEDS: LEVOFLOXACIN 750 MG TABLET PO SCH (11:27)
[2017-11-10] MEDS: FAMOTIDINE 20 MG TABLET PO SCH ×2 (11:27→22:31)
[2017-11-10] MEDS: ENOXAPARIN SODIUM INJ 40 MG/0.4 ML DISP.SYRIN SUBCUT SCH (11:29)
[2017-11-10] MEDS: DOCUSATE SODIUM 100 MG CAPSULE PO SCH (11:29)
[2017-11-10] MEDS ORDERED: POTASSIUM CHLORIDE 20 MEQ/15 ML UDCUP PO ONE (12:44)
[2017-11-10] MEDS ORDERED: POTASSIUM CHLORIDE 20 MEQ/15 ML UDCUP ONE (17:17)
--- NOTE | 2017-11-10 17:37 | PDOC PROGRESS REPORT ---
Subjective Progress Note for:: 11/10/17 Subjective:: Pt spoke today. Told me she felt fine. No chest pain or any other pain. No difficulty brething. Eating well. Wanted to try to walk. No loss of bowel or bladder function per daughter. Remainder of ROS performed with her and with daughter and were negative. Labs and pertinent diagnositcis have been reviewed by me today. Reason For Visit: HYPONATREMIA, CHF exacerbation, PNA, UTI, acute respiratory failure, weakness and debility Physical Exam Vital Signs: Temp Pulse Resp BP Pulse Ox 98.5 F 83 17 136/54 H 94 11/10/17 16:27 11/10/17 16:27 11/10/17 16:27 11/10/17 16:27 11/10/17 16:27 Intake & Output 11/09/17 11/10/17 11/11/17 06:59 06:59 06:59 Intake Total 1005 283 Output Total 700 360 Balance 305 -77 Weight 42.7 kg 42.8 kg General appearance: PRESENT: no acute distress, cooperative, thin Head exam: PRESENT: atraumatic, normocephalic Eye exam: PRESENT: conjunctiva pink, EOMI. ABSENT: scleral icterus Ear exam: PRESENT: normal external ear exam. ABSENT: bleeding Mouth exam: PRESENT: moist Neck exam: ABSENT: lymphadenopathy Respiratory exam: PRESENT: decreased breath sounds, rales. ABSENT: rhonchi, wheezes Cardiovascular exam: PRESENT: RRR, systolic murmur Pulses: PRESENT: normal radial pulses GI/Abdominal exam: PRESENT: normal bowel sounds, soft. ABSENT: distended, tenderness Rectal exam: PRESENT: deferred Extremities exam: ABSENT: pedal edema Musculoskeletal exam: ABSENT: normal inspection Neurological exam: PRESENT: alert, awake, oriented to person. ABSENT: oriented to place, oriented to situation Psychiatric exam: ABSENT: agitated, anxious Skin exam: PRESENT: dry, intact, warm Results Laboratory Results: 11/08/17 04:23 11/10/17 06:44 11/09/17 11/10/17 18:55 06:44 Sodium 136.9 L 138.2 Potassium 3.4 L 3.4 L Chloride 91 L 93 L Carbon Dioxide 41 H* 39 H Anion Gap 5 6 BUN 31 H 31 H Creatinine 0.70 0.62 Est GFR ( Amer) > 60 > 60 Est GFR (Non-Af Amer) > 60 > 60 Glucose 248 H 191 H Calcium 8.0 L 8.3 L 11/05/17 11/06/17 11/06/17 05:15 09:37 15:48 Troponin I 0.159 0.326 NT-Pro-B Natriuret Pep [id number] H 11/06/17 11/09/17 20:15 06:19 Troponin I 0.321 NT-Pro-B Natriuret Pep [id number] H Impressions: Chest X-Ray 11/10/17 00:00 IMPRESSION: Stable diffuse bilateral alveolar infiltrates compared to 11/08/2017 Assessment & Plan - Diagnosis (1) Decubitus ulcer, stage I Qualifiers: Pressure ulcer location: sacral region Qualified Code(s): L89.151 - Pressure ulcer of sacral region, stage 1 Is this a current diagnosis for this admission?: Yes Plan: cont measures instituted yesterday (2) Dementia Qualifiers: Dementia type: Alzheimer's disease Alzheimer's disease onset: unspecified onset Dementia behavioral disturbance: without behavioral disturbance Qualified Code(s): G30.9 - Alzheimer's disease, unspecified; F02.80 - Dementia in other diseases classified elsewhere without behavioral disturbance; F02.80 - Dementia in other diseases classified elsewhere without behavioral disturbance; F02.80 - Dementia in other diseases classified elsewhere without behavioral disturbance Is this a current diagnosis for this admission?: Yes Plan: seems to be improving, moving closer to baseline, cont to monitor (3) 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 Is this a current diagnosis for this admission?: Yes Plan: pt is autodiuresing, contraction alkalosis is improving, cont to keep BP well controlled, diurese if needed (4) NSTEMI (non-ST elevated myocardial infarction) Is this a current diagnosis for this admission?: Yes Plan: resolved (5) Pneumonia Qualifiers: Pneumonia type: due to unspecified organism Laterality: unspecified laterality Lung location: unspecified part of lung Qualified Code(s): J18.9 - Pneumonia, unspecified organism Is this a current diagnosis for this admission?: Yes Plan: treated (6) Pulmonary edema Is this a current diagnosis for this admission?: Yes Plan: persistent and patient is clinically improving (7) UTI (urinary tract infection) Qualifiers: Urinary tract infection type: site unspecified Hematuria presence: without hematuria Qualified Code(s): N39.0 - Urinary tract infection, site not specified Is this a current diagnosis for this admission?: Yes Plan: treated - Time Time Spent with patient: 35 or more minutes Anticipated discharge: Home with Homehealth Within: within 48 hours - Inpatient Certification Based on my medical assessment, after consideration of the patient's comorbidities, presenting symptoms, or acuity I expect that the services needed warrant INPATIENT care.: Yes I certify that my determination is in accordance with my understanding of Medicare's requirements for reasonable and necessary INPATIENT services [42 CFR 412.3e].: Yes Medical Necessity: Significant Comorbidiites Make Outpatient Treatment Too Risky , Need Close Monitoring Due to Risk of Patient Decompensation, Risk of Complication if Not Cared For in Hospital Post Hospital Care: D/C Home Care Nurse Documentation - pt is from [place] and is here temporarily with her daghter. Plan is to get he back down to [place] once she is improved so she can follow with her medical team. PT ordered.
[2017-11-10 19:11] LABS: ANION GAP 8 (5-19); BLOOD UREA NITROGEN 37 mg/dL (7-20); CALCIUM 7.9 mg/dL (8.4-10.2); CARBON DIOXIDE 39 mmol/L (22-30); CHLORIDE 91 mmol/L (98-107); GLUCOSE 330 mg/dL (75-110); POTASSIUM 4.1 mmol/L (3.6-5.0)
[2017-11-10] MEDS ORDERED: POTASSIUM CHLORIDE 10 MEQ TABLET.SA PO SCH (22:00)
[2017-11-10] MEDS: AMLODIPINE BESYLATE 5 MG TABLET PO SCH (22:31)
[2017-11-10] MEDS: TRAZODONE HCL 50 MG TABLET PO SCH (22:31)
[2017-11-11] MEDS: TRAMADOL HCL 50 MG TABLET PO PRN (03:09)
[2017-11-11] MEDS: LEVOTHYROXINE SODIUM 0.05 MG TABLET PO SCH (05:19)
--- NOTE | 2017-11-11 08:33 | EKG REPORT ---
SEVERITY:- ABNORMAL ECG - SINUS RHYTHM LEFT ANTERIOR FASCICULAR BLOCK LEFT VENTRICULAR HYPERTROPHY BORDERLINE PROLONGED QT INTERVAL : Confirmed by: Ebenezer Minaya 11-Nov-2017 08:32:42
[2017-11-11 10:27] LABS: BLOOD UREA NITROGEN 27 mg/dL (7-20); CALCIUM 8.3 mg/dL (8.4-10.2); CHLORIDE 95 mmol/L (98-107); GLUCOSE 211 mg/dL (75-110); MAGNESIUM 2.1 mg/dL (1.6-2.3); POTASSIUM 4.1 mmol/L (3.6-5.0)
[2017-11-11] MEDS: BUSPIRONE HCL 10 MG TABLET PO SCH ×2 (10:29→17:57)
[2017-11-11] MEDS: ASPIRIN 81 MG TABLET, CHEWABLE PO SCH (10:29)
[2017-11-11] MEDS: LEVOFLOXACIN 750 MG TABLET PO SCH (10:29)
[2017-11-11] MEDS: PHOSPHORUS #1 250 MG TABLET PO SCH ×3 (10:29→15:34)
[2017-11-11] MEDS: MAGNESIUM OXIDE 400 MG TABLET PO SCH ×2 (10:29→17:57)
[2017-11-11] MEDS: CARVEDILOL 6.25 MG TABLET PO SCH ×2 (10:29→22:14)
[2017-11-11] MEDS: FAMOTIDINE 20 MG TABLET PO SCH ×2 (10:30→22:14)
[2017-11-11] MEDS: LISINOPRIL 10 MG TABLET PO SCH ×2 (10:30→22:14)
[2017-11-11] MEDS: MULTIVITAMIN TABLET PO SCH (10:30)
[2017-11-11] MEDS: ENOXAPARIN SODIUM INJ 40 MG/0.4 ML DISP.SYRIN SUBCUT SCH (10:30)
[2017-11-11] MEDS: DONEPEZIL HCL 5 MG TABLET PO SCH (10:30)
[2017-11-11] MEDS: DOCUSATE SODIUM 100 MG CAPSULE PO SCH (10:32)
[2017-11-11 10:54] LABS: ANION GAP 5 (5-19); SODIUM 138.6 mmol/L (137-145)
[2017-11-11 10:56] LABS: CARBON DIOXIDE 39 mmol/L (22-30)
--- NOTE | 2017-11-11 11:24 | PDOC PROGRESS REPORT ---
Subjective Progress Note for:: 11/10/17 Subjective:: Patient remains confused. Patient seems to be doing better than yesterday with breathing more easily. Patient's granddaughter in the room today. Patient is maintaining sinus rhythm. Review of systems: Rest review of systems negative. Medications: Medications have been reviewed. Reason For Visit: HYPONATREMIA Physical Exam Vital Signs: Temp Pulse Resp BP Pulse Ox 98.3 F 87 19 132/53 H 95 11/10/17 11:05 11/10/17 11:05 11/10/17 11:05 11/10/17 11:05 11/10/17 11:25 Intake & Output 11/09/17 11/10/17 11/11/17 06:59 06:59 06:59 Intake Total 1005 283 Output Total 700 360 Balance 305 -77 Weight 42.7 kg 42.8 kg Exam: GENERAL: Thin built and in mild respiratory distress. Patient is alert but not oriented to place or time but oriented to person. HEAD: Atraumatic, normocephalic. EYES: Pupils equal round and reactive to light, extraocular movements intact, sclera anicteric, conjunctiva are normal. ENT: TMs normal, nares patent, oropharynx clear without exudates. Moist mucous membranes. No oral ulcerations or bleeding gums noted NECK: supple without lymphadenopathy or JVD. Trachea is central. No cervical or axillary lymphadenopathy noted. Carotids are 2+ LUNGS: Breath sounds bibasilar fine crackles at bases. No significant dullness noted. CHEST: Palpation of chest wall shows no significant chest wall tenderness. HEART: [place] GRUBBER, No PSH, 2/6 MARSHAL aortic area, 2/6 early diastolic murmur noted in the LSB: 1/6 [place] systolic murmur mitral area, rubs or gallops. ABDOMEN: Soft, no significant tenderness appreciated, normoactive bowel sounds. No guarding, no rebound. No rigidity noted . No masses appreciated. EXTREMITIES: Pedal pulses are 1-2+, no calf tenderness noted, Trace + pedal edema noted. No clubbing or cyanosis. NEUROLOGICAL: Patient is alert but is not able to participate in neurological exam because of patient's current mental status PSYCH: Patient cannot participate in a neurologic and psych exam because of the patient's current mental status SKIN: No significant ecchymosis, rash, ulcerations or signs of pruritus noted. MUSCULOSKELETAL EXAM: No significant joint swelling noted. Results Laboratory Results: 11/08/17 04:23 11/10/17 06:44 11/09/17 11/10/17 18:55 06:44 Sodium 136.9 L 138.2 Potassium 3.4 L 3.4 L Chloride 91 L 93 L Carbon Dioxide 41 H* 39 H Anion Gap 5 6 BUN 31 H 31 H Creatinine 0.70 0.62 Est GFR ( Amer) > 60 > 60 Est GFR (Non-Af Amer) > 60 > 60 Glucose 248 H 191 H Calcium 8.0 L 8.3 L 11/05/17 11/06/17 11/06/17 05:15 09:37 15:48 Troponin I 0.159 0.326 NT-Pro-B Natriuret Pep [id number] H 11/06/17 11/09/17 20:15 06:19 Troponin I 0.321 NT-Pro-B Natriuret Pep [id number] H Impressions: Chest X-Ray 11/10/17 00:00 IMPRESSION: Stable diffuse bilateral alveolar infiltrates compared to 11/08/2017 Assessment & Plan - Diagnosis (1) Aortic valve replaced Is this a current diagnosis for this admission?: Yes (2) Hyponatremia Is this a current diagnosis for this admission?: Yes (3) Congestive heart failure Qualifiers: Congestive heart failure type: unspecified Is this a current diagnosis for this admission?: Yes (4) Pneumonia Qualifiers: Pneumonia type: due to unspecified organism Laterality: unspecified laterality Lung location: unspecified part of lung Qualified Code(s): J18.9 - Pneumonia, unspecified organism Is this a current diagnosis for this admission?: Yes - Notes Notes: Chest x-ray reviewed. It shows improvement in both pneumonia and CHF. Continued therapy for both conditions. Valvular heart disease: Currently stable. Not a candidate for any other invasive evaluation. CHF: Seems clinically compensated. Pneumonia: Continue antibiotic therapy. Hyponatremia: Improved. We will repeat an EKG in the morning. - Time Time with patient: 15-25 minutes - CODE STATUS : was discussed, patient remains DO NOT RESUSCITATE. Surrogate decision-maker unchanged. Multiple medical problems were addressed. More than 50% of the time spent coordinating care, discussing management plans with involved caregivers. Management plans discussed with involved personnels. Medical decision making was of moderate to high complexity, patient's has multiple comorbidities. Medications reviewed and adjusted accordingly: Yes
--- NOTE | 2017-11-11 11:29 | PDOC PROGRESS REPORT ---
Subjective Progress Note for:: 11/11/17 Subjective:: Patient remains confused. But has shown significant gradual improvement. Currently laying flat and maintaining good oxygenation and respiration. Patient however remains confused Patient is maintaining sinus rhythm. Review of systems: Rest review of systems negative. Medications: Medications have been reviewed. Reason For Visit: HYPONATREMIA Physical Exam Vital Signs: Temp Pulse Resp BP Pulse Ox 98.2 F 94 16 143/71 H 94 11/11/17 07:42 11/11/17 07:42 11/11/17 07:42 11/11/17 07:42 11/11/17 07:42 Intake & Output 11/10/17 11/11/17 11/12/17 06:59 06:59 06:59 Intake Total 283 1108 Output Total 360 Balance -77 1108 Weight 42.8 kg 41.3 kg Exam: GENERAL: Thin built and in mild respiratory distress. Patient is alert but not oriented to place or time but oriented to person. HEAD: Atraumatic, normocephalic. EYES: Pupils equal round and reactive to light, extraocular movements intact, sclera anicteric, conjunctiva are normal. ENT: TMs normal, nares patent, oropharynx clear without exudates. Moist mucous membranes. No oral ulcerations or bleeding gums noted NECK: supple without lymphadenopathy or JVD. Trachea is central. No cervical or axillary lymphadenopathy noted. Carotids are 2+ LUNGS: Breath sounds bibasilar fine crackles at bases. No significant dullness noted. CHEST: Palpation of chest wall shows no significant chest wall tenderness. 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 ABDOMEN: Soft, no significant tenderness appreciated, normoactive bowel sounds. No guarding, no rebound. No rigidity noted . No masses appreciated. EXTREMITIES: Pedal pulses are 1-2+, no calf tenderness noted, Trace + pedal edema noted. No clubbing or cyanosis. NEUROLOGICAL: Patient is alert but is not able to participate in neurological exam because of patient's current mental status PSYCH: Patient cannot participate in a neurologic and psych exam because of the patient's current mental status SKIN: No significant ecchymosis, rash, ulcerations or signs of pruritus noted. MUSCULOSKELETAL EXAM: No significant joint swelling noted. Results Laboratory Results: 11/08/17 04:23 11/11/17 09:49 11/10/17 11/11/17 18:40 09:49 Sodium 138.0 138.6 Potassium 4.1 4.1 Chloride 91 L 95 L Carbon Dioxide 39 H 39 H Anion Gap 8 5 BUN 37 H 27 H Creatinine 0.74 0.68 Est GFR ( Amer) > 60 > 60 Est GFR (Non-Af Amer) > 60 > 60 Glucose 330 H 211 H Calcium 7.9 L 8.3 L Magnesium 2.1 11/06/17 10:58 Blood Blood Culture - Final NO GROWTH IN 5 DAYS 11/05/17 11/06/17 11/06/17 05:15 09:37 15:48 Troponin I 0.159 0.326 NT-Pro-B Natriuret Pep [id number] H 11/06/17 11/09/17 20:15 06:19 Troponin I 0.321 NT-Pro-B Natriuret Pep [id number] H EKG Comments: Twelve-lead EKG obtained shows sinus rhythm. LVH noted no acute ST-T wave changes noted. Telemetry shows sinus rhythm without any sustained tacky or bradycardia arrhythmias. Impressions: Chest X-Ray 11/10/17 00:00 IMPRESSION: Stable diffuse bilateral alveolar infiltrates compared to 11/08/2017 Assessment & Plan - Diagnosis (1) Aortic valve replaced Is this a current diagnosis for this admission?: Yes (2) Hyponatremia Is this a current diagnosis for this admission?: Yes (3) Congestive heart failure Qualifiers: Congestive heart failure type: unspecified Is this a current diagnosis for this admission?: Yes (4) Pneumonia Qualifiers: Pneumonia type: due to unspecified organism Laterality: unspecified laterality Lung location: unspecified part of lung Qualified Code(s): J18.9 - Pneumonia, unspecified organism Is this a current diagnosis for this admission?: Yes - Notes Notes: Patient remains generally stable from both congestive heart failure and CHF point of view. Patient is showing slow gradual improvement. Current problem seems to be marked general debility and confusion. Patient is also a placement problem since they are from [place]. Anyway no changes made. Will continue to follow because of significant underlying cardiac issues. - Time Time with patient: 15-25 minutes - CODE STATUS : was discussed, patient remains DO NOT RESUSCITATE. Surrogate decision-maker unchanged. Multiple medical problems were addressed. More than 50% of the time spent coordinating care, discussing management plans with involved caregivers. Management plans discussed with involved personnels. Medical decision making was of moderate to high complexity, patient's has multiple comorbidities. Medications reviewed and adjusted accordingly: Yes
[2017-11-11] MEDS ORDERED: FUROSEMIDE INJ/PF 20 MG/2 ML SDV IV ONE (15:30)
[2017-11-11 15:49] LABS: HEMATOCRIT 35.3 % (36.0-47.0); HEMOGLOBIN 11.7 g/dL (12.0-15.5); MEAN CORPUSCULAR HEMOGLOBIN 28.6 pg (27.0-33.4); MEAN CORPUSCULAR HGB CONC 33.2 g/dL (32.0-36.0); MEAN CORPUSCULAR VOLUME 86 fl (80-97); PLATELET COUNT 286 10^3/uL (150-450); RED BLOOD COUNT 4.11 10^6/uL (3.72-5.28); RED CELL DISTRIBUTION WIDTH 13.6 % (11.5-14.0); WHITE BLOOD COUNT 9.7 10^3/uL (4.0-10.5)
[2017-11-11 16:18] LABS: ANION GAP 8 (5-19); BLOOD UREA NITROGEN 34 mg/dL (7-20); CARBON DIOXIDE 36 mmol/L (22-30); CHLORIDE 95 mmol/L (98-107); GLUCOSE 256 mg/dL (75-110); MAGNESIUM 2.1 mg/dL (1.6-2.3); POTASSIUM 4.1 mmol/L (3.6-5.0); SODIUM 138.9 mmol/L (137-145)
--- NOTE | 2017-11-11 17:51 | PDOC PROGRESS REPORT ---
Subjective Progress Note for:: 11/11/17 Subjective:: Patient is frustrated today. She was able to speak with me some. She is asking where her daughter is and she is asking me where she is. She also tells me that she is not in any pain. She is breathing okay. She does not have to use the bathroom. Patient really does not answer many more questions and so full review of systems is not possible. I have reviewed her labs and pertinent diagnostic studies and consult notes. Reason For Visit: HYPONATREMIA Physical Exam Vital Signs: Temp Pulse Resp BP Pulse Ox 98.0 F 88 16 130/68 H 99 11/11/17 16:00 11/11/17 16:00 11/11/17 16:00 11/11/17 16:00 11/11/17 16:00 Intake & Output 11/10/17 11/11/17 11/12/17 06:59 06:59 06:59 Intake Total 283 1108 243 Output Total 360 Balance -77 1108 243 Weight 42.8 kg 41.3 kg General appearance: PRESENT: mild distress, thin Head exam: PRESENT: atraumatic, normocephalic Eye exam: PRESENT: conjunctiva pink. ABSENT: scleral icterus Ear exam: PRESENT: normal external ear exam. ABSENT: bleeding Mouth exam: PRESENT: moist, neck supple Neck exam: ABSENT: lymphadenopathy Respiratory exam: PRESENT: rales - Rales at the bilateral bases, unlabored. ABSENT: wheezes Cardiovascular exam: PRESENT: RRR, systolic murmur GI/Abdominal exam: PRESENT: normal bowel sounds, soft. ABSENT: distended, guarding, tenderness Rectal exam: PRESENT: deferred Extremities exam: ABSENT: pedal edema Musculoskeletal exam: ABSENT: deformity Neurological exam: PRESENT: alert, awake, oriented to person. ABSENT: oriented to place, oriented to situation Psychiatric exam: PRESENT: agitated Skin exam: PRESENT: dry, intact, warm Results Laboratory Results: 11/11/17 15:18 11/11/17 15:18 11/10/17 11/11/17 11/11/17 18:40 09:49 15:18 WBC 9.7 RBC 4.11 Hgb 11.7 L Hct 35.3 L MCV 86 MCH 28.6 MCHC 33.2 RDW 13.6 Plt Count 286 Sodium 138.0 138.6 Potassium 4.1 4.1 Chloride 91 L 95 L Carbon Dioxide 39 H 39 H Anion Gap 8 5 BUN 37 H 27 H Creatinine 0.74 0.68 Est GFR ( Amer) > 60 > 60 Est GFR (Non-Af Amer) > 60 > 60 Glucose 330 H 211 H Calcium 7.9 L 8.3 L Magnesium 2.1 11/11/17 15:18 WBC RBC Hgb Hct MCV MCH MCHC RDW Plt Count Sodium 138.9 Potassium 4.1 Chloride 95 L Carbon Dioxide 36 H Anion Gap 8 BUN 34 H Creatinine 0.73 Est GFR ( Amer) > 60 Est GFR (Non-Af Amer) > 60 Glucose 256 H Calcium 8.0 L Magnesium 2.1 11/06/17 11:34 Blood Blood Culture - Final NO GROWTH IN 5 DAYS 11/06/17 10:58 Blood Blood Culture - Final NO GROWTH IN 5 DAYS 11/05/17 11/06/17 11/06/17 05:15 09:37 15:48 Troponin I 0.159 0.326 NT-Pro-B Natriuret Pep [id number] H 11/06/17 11/09/17 20:15 06:19 Troponin I 0.321 NT-Pro-B Natriuret Pep 05330 H Impressions: Chest X-Ray 11/10/17 00:00 IMPRESSION: Stable diffuse bilateral alveolar infiltrates compared to 11/08/2017 Assessment & Plan - Diagnosis (1) Decubitus ulcer, stage I Qualifiers: Pressure ulcer location: sacral region Qualified Code(s): L89.151 - Pressure ulcer of sacral region, stage 1 Is this a current diagnosis for this admission?: Yes Plan: Continue current care with wound coverage, frequent turning, specialty mattress. (2) Dementia Qualifiers: Dementia type: Alzheimer's disease Alzheimer's disease onset: unspecified onset Dementia behavioral disturbance: without behavioral disturbance Qualified Code(s): G30.9 - Alzheimer's disease, unspecified; F02.80 - Dementia in other diseases classified elsewhere without behavioral disturbance; F02.80 - Dementia in other diseases classified elsewhere without behavioral disturbance; F02.80 - Dementia in other diseases classified elsewhere without behavioral disturbance Is this a current diagnosis for this admission?: Yes Plan: Patient is probably getting closer to her baseline in terms of her dementia. We will continue to treat underlying problems and try to get her out of the hospital as soon as is safe so as to prevent further acute problems related to her dementia. 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 Going to diurese her with Lasix 20 mg IV. We will see if we can titrate down on her oxygen. Currently she is requiring 5 L of nasal cannula oxygen and does not use any at baseline. Continue antibiotics for pneumonia. (4) NSTEMI (non-ST elevated myocardial infarction) Is this a current diagnosis for this admission?: Yes Plan: Patient had a slight upward trend in the troponins that then down trended. She has known coronary disease. This was likely related to heart failure exacerbation. 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 (5) Pneumonia Qualifiers: Pneumonia type: due to unspecified organism Laterality: unspecified laterality Lung location: unspecified part of lung Qualified Code(s): J18.9 - Pneumonia, unspecified organism Is this a current diagnosis for this admission?: Yes Plan: Improved. Continue antibiotics. (6) Pulmonary edema Is this a current diagnosis for this admission?: Yes Plan: Patient has rales and continues to have an oxygen requirement. Will administer Lasix 20 mg IV 1 now. Will recheck electrolytes and patient in the morning. (7) UTI (urinary tract infection) Qualifiers: Urinary tract infection type: site unspecified Hematuria presence: without hematuria Qualified Code(s): N39.0 - Urinary tract infection, site not specified Is this a current diagnosis for this admission?: Yes Plan: Continue antibiotics for now. - Time Time Spent with patient: 25-34 minutes Medications reviewed and adjusted accordingly: Yes Within: within 48 hours - Inpatient Certification Medical Necessity: Significant Comorbidiites Make Outpatient Treatment Too Risky , Need Close Monitoring Due to Risk of Patient Decompensation, Risk of Complication if Not Cared For in Hospital
[2017-11-11] MEDS: INSULIN LISPRO 100 UNIT/ML 3 ML VIAL SUBCUT PRN ×2 (17:57→22:23)
[2017-11-11 19:42] LABS: ANION GAP 8 (5-19); BLOOD UREA NITROGEN 32 mg/dL (7-20); CARBON DIOXIDE 38 mmol/L (22-30); CHLORIDE 93 mmol/L (98-107); GLUCOSE 271 mg/dL (75-110); POTASSIUM 3.8 mmol/L (3.6-5.0); SODIUM 139.1 mmol/L (137-145)
[2017-11-11] MEDS: AMLODIPINE BESYLATE 5 MG TABLET PO SCH (22:14)
[2017-11-11] MEDS: TRAZODONE HCL 50 MG TABLET PO SCH (22:14)
[2017-11-11] MEDS: POTASSIUM CHLORIDE 20 MEQ/15 ML UDCUP PO SCH (22:14)
[2017-11-12] MEDS: LEVOTHYROXINE SODIUM 0.05 MG TABLET PO SCH (05:17)
[2017-11-12] MEDS: TRAMADOL HCL 50 MG TABLET PO PRN ×2 (05:17→20:35)
[2017-11-12 07:01] LABS: ARTERIAL BLOOD BASE EXCESS 12.6 mmol/L; ARTERIAL BLOOD FIO2 5L; ARTERIAL BLOOD H2CO3 1.46 mmol/L (1.05-1.35); ARTERIAL BLOOD HCO3 37.4 mmol/L (20-26); ARTERIAL BLOOD O2 SATURATION 93.3 % (94-98); ARTERIAL BLOOD PCO2 48.4 mmHg (35-45); ARTERIAL BLOOD PH 7.51 (7.35-7.45); ARTERIAL BLOOD PO2 61.8 mmHg (80-100); ARTERIAL BLOOD TOTAL CO2 38.9 mmol/L (21-25)
[2017-11-12] MEDS: PHOSPHORUS #1 250 MG TABLET PO SCH ×3 (09:03→16:10)
[2017-11-12] MEDS: ASPIRIN 81 MG TABLET, CHEWABLE PO SCH (11:03)
[2017-11-12] MEDS: BUSPIRONE HCL 10 MG TABLET PO SCH ×2 (11:04→18:30)
[2017-11-12] MEDS: CARVEDILOL 6.25 MG TABLET PO SCH ×2 (11:05→20:36)
[2017-11-12] MEDS: DONEPEZIL HCL 5 MG TABLET PO SCH (11:06)
[2017-11-12] MEDS: LISINOPRIL 10 MG TABLET PO SCH ×2 (11:07→20:37)
[2017-11-12] MEDS: FAMOTIDINE 20 MG TABLET PO SCH ×2 (11:07→20:35)
[2017-11-12] MEDS: LEVOFLOXACIN 750 MG TABLET PO SCH (11:07)
[2017-11-12] MEDS: MULTIVITAMIN TABLET PO SCH (11:08)
[2017-11-12] MEDS: MAGNESIUM OXIDE 400 MG TABLET PO SCH ×2 (11:08→18:30)
[2017-11-12] MEDS: ENOXAPARIN SODIUM INJ 40 MG/0.4 ML DISP.SYRIN SUBCUT SCH (11:09)
[2017-11-12] MEDS: POTASSIUM CHLORIDE 20 MEQ/15 ML UDCUP PO SCH ×2 (11:09→20:36)
[2017-11-12] MEDS: DOCUSATE SODIUM 100 MG CAPSULE PO SCH (12:36)
--- NOTE | 2017-11-12 20:29 | PDOC PROGRESS REPORT ---
Subjective Progress Note for:: 11/12/17 Subjective:: Pt says "one day at a time", she is comfortable appearing, daughter doesnt have questions. ROS is not performed as pt is not able to answer. Labs have been reviewed by me today. Reason For Visit: HYPONATREMIA Physical Exam Vital Signs: Temp Pulse Resp BP Pulse Ox 98.3 F 94 18 140/73 H 96 11/12/17 15:31 11/12/17 19:00 11/12/17 15:31 11/12/17 15:31 11/12/17 15:31 Intake & Output 11/11/17 11/12/17 11/13/17 06:59 06:59 06:59 Intake Total 6594 668 1301 Output Total 700 Balance 3848 206 1802 Weight 41.3 kg 45.6 kg General appearance: PRESENT: no acute distress, mild distress, thin Head exam: PRESENT: atraumatic, normocephalic Eye exam: PRESENT: conjunctiva pink Mouth exam: PRESENT: moist Respiratory exam: PRESENT: rales, other - rales at bilat bases, improving GI/Abdominal exam: PRESENT: soft. ABSENT: tenderness Extremities exam: PRESENT: other - thin, atraumatic Neurological exam: PRESENT: alert, altered Psychiatric exam: ABSENT: agitated, anxious Skin exam: PRESENT: dry, normal color Results Laboratory Results: 11/11/17 15:18 11/11/17 18:45 11/12/17 06:50 Carbonic Acid 1.46 H HCO3/H2CO3 Ratio 25:1 ABG pH 7.51 H ABG pCO2 48.4 H ABG pO2 61.8 L ABG HCO3 37.4 H ABG O2 Saturation 93.3 L ABG Base Excess 12.6 FiO2 5L 11/05/17 11/06/17 11/06/17 05:15 09:37 15:48 Troponin I 0.159 0.326 NT-Pro-B Natriuret Pep [id number] H 11/06/17 11/09/17 20:15 06:19 Troponin I 0.321 NT-Pro-B Natriuret Pep 00448 H Impressions: Chest X-Ray 11/10/17 00:00 IMPRESSION: Stable diffuse bilateral alveolar infiltrates compared to 11/08/2017 Assessment & Plan - Diagnosis (1) Decubitus ulcer, stage I Qualifiers: Pressure ulcer location: sacral region Qualified Code(s): L89.151 - Pressure ulcer of sacral region, stage 1 Is this a current diagnosis for this admission?: Yes Plan: cont current care, cover with dressing, frequent turning, specialty mattress (2) Dementia Qualifiers: Dementia type: Alzheimer's disease Alzheimer's disease onset: unspecified onset Dementia behavioral disturbance: without behavioral disturbance Qualified Code(s): G30.9 - Alzheimer's disease, unspecified; F02.80 - Dementia in other diseases classified elsewhere without behavioral disturbance; F02.80 - Dementia in other diseases classified elsewhere without behavioral disturbance; F02.80 - Dementia in other diseases classified elsewhere without behavioral disturbance Is this a current diagnosis for this admission?: Yes Plan: advancing, not yet a 6E on FAST scale, she may not recover to baseline from this acute illness (3) 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 Is this a current diagnosis for this admission?: Yes Plan: check CXR and BMP and ABG in the am and consider IV lasix dose (4) NSTEMI (non-ST elevated myocardial infarction) Is this a current diagnosis for this admission?: Yes (5) Pneumonia Qualifiers: Pneumonia type: due to unspecified organism Laterality: unspecified laterality Lung location: unspecified part of lung Qualified Code(s): J18.9 - Pneumonia, unspecified organism Is this a current diagnosis for this admission?: Yes Plan: levaquin for a total of 7 days (6) Pulmonary edema Is this a current diagnosis for this admission?: Yes Plan: see plan for CHF (7) UTI (urinary tract infection) Qualifiers: Urinary tract infection type: site unspecified Hematuria presence: without hematuria Qualified Code(s): N39.0 - Urinary tract infection, site not specified Is this a current diagnosis for this admission?: Yes Plan: cont levaquin for 7 days (8) Acute hypoxemic respiratory failure Is this a current diagnosis for this admission?: Yes Plan: due to pneumonia and CHF exacerbation-tomorrow ABG, cont O2, repeat CXR. COnt diuresis as she will tolerate, DC To SNF with O2 likely, bipap prn - Time Time Spent with patient: 25-34 minutes Anticipated discharge: SNF - pt needs acute rebab, once respiratory status stabilized she will be ready to go - Inpatient Certification Based on my medical assessment, after consideration of the patient's comorbidities, presenting symptoms, or acuity I expect that the services needed warrant INPATIENT care.: Yes I certify that my determination is in accordance with my understanding of Medicare's requirements for reasonable and necessary INPATIENT services [42 CFR 412.3e].: Yes Medical Necessity: Significant Comorbidiites Make Outpatient Treatment Too Risky , Need Close Monitoring Due to Risk of Patient Decompensation, Risk of Complication if Not Cared For in Hospital
[2017-11-12] MEDS: TRAZODONE HCL 50 MG TABLET PO SCH (20:35)
[2017-11-12] MEDS: AMLODIPINE BESYLATE 5 MG TABLET PO SCH (20:37)
[2017-11-12] MEDS: INSULIN LISPRO 100 UNIT/ML 3 ML VIAL SUBCUT PRN (21:22)
[2017-11-13 04:52] LABS: ARTERIAL BLOOD BASE EXCESS 4.2 mmol/L; ARTERIAL BLOOD H2CO3 1.17 mmol/L (1.05-1.35); ARTERIAL BLOOD O2 SATURATION 94.8 % (94-98); ARTERIAL BLOOD PH 7.47 (7.35-7.45); ARTERIAL BLOOD PO2 68.4 mmHg (80-100); ARTERIAL BLOOD TOTAL CO2 29.2 mmol/L (21-25)
[2017-11-13 04:54] LABS: ARTERIAL BLOOD FIO2 40%
[2017-11-13 06:10] LABS: ANION GAP 7 (5-19); BLOOD UREA NITROGEN 36 mg/dL (7-20); CALCIUM 8.2 mg/dL (8.4-10.2); CARBON DIOXIDE 33 mmol/L (22-30); CHLORIDE 102 mmol/L (98-107); GLUCOSE 98 mg/dL (75-110); POTASSIUM 5.2 mmol/L (3.6-5.0); SODIUM 142.2 mmol/L (137-145)
[2017-11-13] MEDS: LEVOTHYROXINE SODIUM 0.05 MG TABLET PO SCH (06:16)
--- NOTE | 2017-11-13 08:23 | RADIOLOGY REPORT (SQ) ---
EXAM DESCRIPTION: CHEST PA/LAT COMPLETED DATE/TIME: 11/13/2017 7:55 am REASON FOR STUDY: eval pulmonary edema COMPARISON: Chest film 11/10/2017, 11/08/2017, 11/06/2017 EXAM PARAMETERS: NUMBER OF VIEWS: two views TECHNIQUE: Digital Frontal and Lateral radiographic views of the chest acquired. RADIATION DOSE: NA LIMITATIONS: none FINDINGS: LUNGS AND PLEURA: Diffuse bilateral airspace disease is present, partially cleared compare d to 11/06/2017, similar compared to 11/10/2017. No pleural effusions. No pneumothorax. MEDIASTINUM AND HILAR STRUCTURES: No masses or contour abnormalities. HEART AND VASCULAR STRUCTURES: Old sternotomy, CABG, and aortic valve replacement. BONES: No acute findings. HARDWARE: None in the chest. OTHER: No other significant finding. IMPRESSION: Partial clearing of the bilateral diffuse airspace disease compared to 11/06/2017 TECHNICAL DOCUMENTATION: JOB ID: [id number] [employer]- All Rights Reserved
[2017-11-13] MEDS: PHOSPHORUS #1 250 MG TABLET PO SCH ×3 (08:42→16:26)
[2017-11-13] MEDS: FAMOTIDINE 20 MG TABLET PO SCH ×2 (09:16→22:19)
[2017-11-13] MEDS: CARVEDILOL 6.25 MG TABLET PO SCH ×2 (09:17→22:19)
[2017-11-13] MEDS: MULTIVITAMIN TABLET PO SCH (09:17)
[2017-11-13] MEDS: ASPIRIN 81 MG TABLET, CHEWABLE PO SCH (09:18)
[2017-11-13] MEDS: LISINOPRIL 10 MG TABLET PO SCH (09:18)
[2017-11-13] MEDS: LEVOFLOXACIN 750 MG TABLET PO SCH (09:19)
[2017-11-13] MEDS: MAGNESIUM OXIDE 400 MG TABLET PO SCH ×2 (09:19→17:13)
[2017-11-13] MEDS: BUSPIRONE HCL 10 MG TABLET PO SCH ×2 (09:19→17:14)
[2017-11-13] MEDS: DONEPEZIL HCL 5 MG TABLET PO SCH (09:20)
[2017-11-13] MEDS: ENOXAPARIN SODIUM INJ 40 MG/0.4 ML DISP.SYRIN SUBCUT SCH (09:20)
[2017-11-13] MEDS: POTASSIUM CHLORIDE 20 MEQ/15 ML UDCUP PO SCH (09:20)
[2017-11-13] MEDS: DOCUSATE SODIUM 100 MG CAPSULE PO SCH (09:30)
[2017-11-13] MEDS: TRAMADOL HCL 50 MG TABLET PO PRN (10:32)
[2017-11-13] MEDS: INSULIN LISPRO 100 UNIT/ML 3 ML VIAL SUBCUT PRN (12:04)
[2017-11-13] MEDS ORDERED: FUROSEMIDE INJ/PF 20 MG/2 ML SDV IV SCH ×2 (18:30)
--- NOTE | 2017-11-13 18:37 | PDOC PROGRESS REPORT ---
Subjective Progress Note for:: 11/13/17 Subjective:: 82-year-old female CABG and aortic valve replacement many years ago who presented to the hospital with nausea and vomiting and was found to have pneumonia, hyponatremia and a urinary tract infection. Reason For Visit: HYPONATREMIA Physical Exam Vital Signs: Temp Pulse Resp BP Pulse Ox 98.3 F 93 18 107/48 L 96 11/13/17 15:30 11/13/17 15:30 11/13/17 15:30 11/13/17 15:30 11/13/17 15:30 Intake & Output 11/12/17 11/13/17 11/14/17 06:59 06:59 06:59 Intake Total 923 1620 546 Output Total 700 250 Balance 223 1620 296 Weight 45.6 kg 47.9 kg General appearance: PRESENT: no acute distress Head exam: PRESENT: atraumatic, normocephalic Respiratory exam: PRESENT: crackles, symmetrical Cardiovascular exam: PRESENT: RRR GI/Abdominal exam: PRESENT: normal bowel sounds, soft. ABSENT: rigid, tenderness Rectal exam: PRESENT: deferred Neurological exam: PRESENT: alert, awake. ABSENT: oriented to place, oriented to time, oriented to situation Psychiatric exam: PRESENT: depressed Skin exam: ABSENT: rash Results Laboratory Results: 11/11/17 15:18 11/13/17 04:50 11/13/17 11/13/17 04:30 04:50 Carbonic Acid 1.17 HCO3/H2CO3 Ratio 23:1 ABG pH 7.47 H ABG pCO2 39.0 ABG pO2 68.4 L ABG HCO3 28.0 H ABG O2 Saturation 94.8 ABG Base Excess 4.2 FiO2 40% Sodium 142.2 Potassium 5.2 H Chloride 102 Carbon Dioxide 33 H Anion Gap 7 BUN 36 H Creatinine 0.84 Est GFR ( Amer) > 60 Est GFR (Non-Af Amer) > 60 Glucose 98 Calcium 8.2 L 11/05/17 11/06/17 11/06/17 05:15 09:37 15:48 Troponin I 0.159 0.326 NT-Pro-B Natriuret Pep [id number] H 11/06/17 11/09/17 20:15 06:19 Troponin I 0.321 NT-Pro-B Natriuret Pep [id number] H Impressions: Chest X-Ray 11/13/17 08:00 IMPRESSION: Partial clearing of the bilateral diffuse airspace disease compared to 11/06/2017 Assessment & Plan - Diagnosis (1) Acute hypoxemic respiratory failure Is this a current diagnosis for this admission?: Yes (2) Acute viral syndrome Is this a current diagnosis for this admission?: Yes (3) Aortic valve replaced Is this a current diagnosis for this admission?: Yes (4) Decubitus ulcer, stage I Qualifiers: Pressure ulcer location: sacral region Qualified Code(s): L89.151 - Pressure ulcer of sacral region, stage 1 Is this a current diagnosis for this admission?: Yes (5) 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 Is this a current diagnosis for this admission?: Yes (6) Pneumonia Qualifiers: Pneumonia type: due to unspecified organism Laterality: unspecified laterality Lung location: unspecified part of lung Qualified Code(s): J18.9 - Pneumonia, unspecified organism Is this a current diagnosis for this admission?: Yes (7) UTI (urinary tract infection) Qualifiers: Urinary tract infection type: site unspecified Hematuria presence: without hematuria Qualified Code(s): N39.0 - Urinary tract infection, site not specified Is this a current diagnosis for this admission?: Yes - Time Time Spent with patient: 35 or more minutes - Plan Summary Plan Summary: Continue antibiotic for E.coli UTI and Pneumonia. Pulmonary edema due to diastolic CHF exacerbation- IV lasix Hyperkalemia- recheck BMP.
[2017-11-13 19:01] LABS: ANION GAP 6 (5-19); BLOOD UREA NITROGEN 43 mg/dL (7-20); CALCIUM 7.8 mg/dL (8.4-10.2); CARBON DIOXIDE 32 mmol/L (22-30); CHLORIDE 102 mmol/L (98-107); GLUCOSE 161 mg/dL (75-110); POTASSIUM 5.1 mmol/L (3.6-5.0); SODIUM 139.5 mmol/L (137-145)
--- NOTE | 2017-11-13 20:06 | PDOC PROGRESS REPORT ---
Subjective Progress Note for:: 11/13/17 Subjective:: Patient remains confused but has shown significant gradual improvement. Patient was noted to have respiratory distress yesterday and got IV Lasix. This morning she is improved. Currently laying flat and maintaining good oxygenation and respiration. Patient however remains confused. Currently problem being of placement. Chest x-ray reviewed. It shows bilateral interstitial infiltrate, somewhat improved. Patient is maintaining sinus rhythm. Review of systems: Rest review of systems negative. Medications: Medications have been reviewed. Reason For Visit: HYPONATREMIA Physical Exam Vital Signs: Temp Pulse Resp BP Pulse Ox 98.3 F 88 18 107/48 L 96 11/13/17 15:30 11/13/17 19:00 11/13/17 15:30 11/13/17 15:30 11/13/17 15:30 Intake & Output 11/12/17 11/13/17 11/14/17 06:59 06:59 06:59 Intake Total 923 1620 546 Output Total 700 250 Balance 223 1620 296 Weight 45.6 kg 47.9 kg Exam: GENERAL: well-nourished and in no acute distress. Patient is alert but not oriented to place time or person. HEAD: Atraumatic, normocephalic. EYES: Pupils equal round and reactive to light, extraocular movements intact, sclera anicteric, conjunctiva are normal. ENT: TMs normal, nares patent, oropharynx clear without exudates. Moist mucous membranes. No oral ulcerations or bleeding gums noted NECK: supple without lymphadenopathy or JVD. Trachea is central. No cervical or axillary lymphadenopathy noted. Carotids are 2+ LUNGS: Breath sounds bibasilar fine crackles at bases. No significant dullness noted. CHEST: Palpation of chest wall shows no significant chest wall tenderness. 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 ABDOMEN: Soft, no significant tenderness appreciated, normoactive bowel sounds. No guarding, no rebound. No rigidity noted . No masses appreciated. EXTREMITIES: Pedal pulses are 1-2+, no calf tenderness noted, Trace + pedal edema noted. No clubbing or cyanosis. NEUROLOGICAL: Patient is alert but is not able to participate in neurological exam because of patient's current mental status PSYCH: Patient cannot participate in a neurologic and psych exam because of the patient's current mental status SKIN: No significant ecchymosis, rash, ulcerations or signs of pruritus noted. MUSCULOSKELETAL EXAM: No significant joint swelling noted. Results Laboratory Results: 11/11/17 15:18 11/13/17 18:35 11/13/17 11/13/17 11/13/17 04:30 04:50 18:35 Carbonic Acid 1.17 HCO3/H2CO3 Ratio 23:1 ABG pH 7.47 H ABG pCO2 39.0 ABG pO2 68.4 L ABG HCO3 28.0 H ABG O2 Saturation 94.8 ABG Base Excess 4.2 FiO2 40% Sodium 142.2 139.5 Potassium 5.2 H 5.1 H Chloride 102 102 Carbon Dioxide 33 H 32 H Anion Gap 7 6 BUN 36 H 43 H Creatinine 0.84 0.85 Est GFR ( Amer) > 60 > 60 Est GFR (Non-Af Amer) > 60 > 60 Glucose 98 161 H Calcium 8.2 L 7.8 L 11/05/17 11/06/17 11/06/17 05:15 09:37 15:48 Troponin I 0.159 0.326 NT-Pro-B Natriuret Pep [id number] H 11/06/17 11/09/17 20:15 06:19 Troponin I 0.321 NT-Pro-B Natriuret Pep 14118 H EKG Comments: Telemetry strip shows sinus rhythm. Impressions: Chest X-Ray 11/13/17 08:00 IMPRESSION: Partial clearing of the bilateral diffuse airspace disease compared to 11/06/2017 Assessment & Plan - Diagnosis (1) Aortic valve replaced Is this a current diagnosis for this admission?: Yes (2) Hyponatremia Is this a current diagnosis for this admission?: Yes (3) Congestive heart failure Qualifiers: Congestive heart failure type: unspecified Is this a current diagnosis for this admission?: Yes (4) Pneumonia Qualifiers: Pneumonia type: due to unspecified organism Laterality: unspecified laterality Lung location: unspecified part of lung Qualified Code(s): J18.9 - Pneumonia, unspecified organism Is this a current diagnosis for this admission?: Yes - Notes Notes: Patient remains hypoxemic and is on oxygen supplementation. She remains intermittently confused. Chest x-ray still showing pulmonary infiltrate bilateral which are mainly in the upper lobes. Possible interstitial lung disease. May consider pulmonary evaluation. Cardiac vazquez she seems to have underlying CHF but it does not seem that much clinically volume overloaded. Follow BNP and chest x-ray. May consider high-resolution CT of the chest. - Time Time with patient: 15-25 minutes - CODE STATUS : was discussed, patient remains DO NOT RESUSCITATE. Surrogate decision-maker unchanged. Multiple medical problems were addressed. More than 50% of the time spent coordinating care, discussing management plans with involved caregivers. Management plans discussed with involved personnels. Medical decision making was of moderate to high complexity, patient's has multiple comorbidities. Medications reviewed and adjusted accordingly: Yes
[2017-11-13] MEDS: FUROSEMIDE INJ/PF 40 MG/4 ML SDV IV SCH (20:42)
[2017-11-13] MEDS: AMLODIPINE BESYLATE 5 MG TABLET PO SCH (22:17)
[2017-11-13] MEDS: TRAZODONE HCL 50 MG TABLET PO SCH (22:19)
[2017-11-14] MEDS ORDERED: TRAMADOL HCL 50 MG TABLET PO PRN (01:34)
[2017-11-14] MEDS: LEVOTHYROXINE SODIUM 0.05 MG TABLET PO SCH (05:55)
[2017-11-14 06:47] LABS: HEMATOCRIT 34.2 % (36.0-47.0); HEMOGLOBIN 11.4 g/dL (12.0-15.5); MEAN CORPUSCULAR HEMOGLOBIN 28.7 pg (27.0-33.4); MEAN CORPUSCULAR HGB CONC 33.5 g/dL (32.0-36.0); MEAN CORPUSCULAR VOLUME 86 fl (80-97); PLATELET COUNT 307 10^3/uL (150-450); RED BLOOD COUNT 3.99 10^6/uL (3.72-5.28); RED CELL DISTRIBUTION WIDTH 13.7 % (11.5-14.0); WHITE BLOOD COUNT 9.5 10^3/uL (4.0-10.5)
[2017-11-14 07:13] LABS: ANION GAP 6 (5-19); BLOOD UREA NITROGEN 38 mg/dL (7-20); CALCIUM 8.1 mg/dL (8.4-10.2); CARBON DIOXIDE 36 mmol/L (22-30); CHLORIDE 98 mmol/L (98-107); GLUCOSE 198 mg/dL (75-110); MAGNESIUM 2.1 mg/dL (1.6-2.3); SODIUM 139.6 mmol/L (137-145)
[2017-11-14 07:24] LABS: POTASSIUM 3.9 mmol/L (3.6-5.0)
[2017-11-14] MEDS: FUROSEMIDE INJ/PF 40 MG/4 ML SDV IV SCH (08:39)
[2017-11-14] MEDS: ASPIRIN 81 MG TABLET, CHEWABLE PO SCH (09:22)
[2017-11-14] MEDS: DONEPEZIL HCL 5 MG TABLET PO SCH (09:22)
[2017-11-14] MEDS: MULTIVITAMIN TABLET PO SCH (09:22)
[2017-11-14] MEDS: MAGNESIUM OXIDE 400 MG TABLET PO SCH ×2 (09:22→17:19)
[2017-11-14] MEDS: CARVEDILOL 6.25 MG TABLET PO SCH ×2 (09:23→23:04)
[2017-11-14] MEDS: FAMOTIDINE 20 MG TABLET PO SCH ×2 (09:23→23:03)
[2017-11-14] MEDS: BUSPIRONE HCL 10 MG TABLET PO SCH ×2 (09:23→17:19)
[2017-11-14] MEDS: LEVOFLOXACIN 750 MG TABLET PO SCH (09:23)
[2017-11-14] MEDS: DOCUSATE SODIUM 100 MG CAPSULE PO SCH (09:25)
[2017-11-14] MEDS: INSULIN LISPRO 100 UNIT/ML 3 ML VIAL SUBCUT PRN ×2 (11:32→17:19)
--- NOTE | 2017-11-14 11:58 | PROGRESS NOTE E ---
Progress Note NAME: RITESH MONTOYA : 1935 AGE: 82Y DATE: 11/14/2017 ROOM: 408 SUBJECTIVE: The patient is currently lying in bed. According to the patient's daughter, a few days ago she left the hospital, and when she returned she found her mother in an altered state of consciousness. Since that time, she says her mother is quite confused and is near catatonic. This is not her baseline, stating that her mother normally goes up 13 stairs independently and feeds herself, cuts up her own meats and so forth, and had a very high independent functional status. However, she is concerned that the patient's mental status has greatly changed but this has not been addressed. The patient has had no reported episodes of vomiting or diarrhea. When I ask the patient how she is, she states "I want to know about my stuff." The patient has no nausea, vomiting, diarrhea. No dizziness, chest pain. No fevers, chills. The patient has been afebrile. Blood pressure has been in a good range, and the patient does not voice any other concerns at this time. REVIEW OF SYSTEMS: Rest of review of systems is unobtainable. MEDICATIONS: Medications have been reviewed. OBJECTIVE: GENERAL: The patient is an 82-year-old female who is awake, alert. Unable to fully assess orientation. She does not appear to be distressed. VITAL SIGNS FOLLOWS: Temperature is 98.0. Pulse 80. Respirations 18. Blood pressure is 107/47. Oxygen saturation 98% on 5 L nasal cannula. SKIN: Pale, dry. No rash. She is not diaphoretic. HEENT: Pupils are pinpoint. Mucous membranes are moist. NECK: There is no evidence of JVP. CARDIOVASCULAR SYSTEM: Heart is regular. No rub. CHEST: Diminished, symmetrical, unlabored. ABDOMEN: Soft, nontender, nondistended. EXTREMITIES: No clubbing, cyanosis, edema. PSYCHIATRIC: The patient has a very flat, near-catatonic affect. DIAGNOSTICS: Lab values are as follows. Hematology obtained on 11/14/2017: WBCs are 9.5. Hemoglobin is 11.4. Hematocrit is 34.2. Platelet count of 307,000. Chemistry obtained on 11/14/2017: Sodium is 139, potassium 3.9, chloride is 98, carbon dioxide 36. BUN 38, creatinine is 0.78, glucose 198. Calcium is 8.1. Magnesium is 2.1. IMPRESSION AND PLAN: 1. ACUTE ENCEPHALOPATHY. Will obtain MRI of the brain. Additionally will add a B12 level. The patient is not on any new medications. Will follow. 2. BILATERAL PNEUMONIA. Will continue current coverage. The patient overall appears to be much improved. Will continue pulmonary toileting and follow. 3. [id number] DIASTOLIC CONGESTIVE HEART FAILURE. The patient has been diuresed, appears optivolemic at this point. Will hold further diuresis for now. 4. ATRIAL FIBRILLATION. Will continue the patient's home medications. The patient is rate controlled. Follow. 5. ACUTE HYPOXEMIC RESPIRATORY FAILURE. Will aggressively titrate O2. 6. AORTIC VALVE REPLACEMENT. The patient overall appears stable. Do appreciate cardiology input on this. 7. E. COLI URINARY TRACT INFECTION. The patient has received adequate treatment for this. 8. SACRAL DECUBITUS STAGE 1. THIS WAS PRESENT ON ADMISSION. Will continue preventative measures. DISPOSITION: The patient is a DO NOT RESUSCITATE, DO NOT INTUBATE. Pending patient's symptomatology and diagnostic findings, will reevaluate in the a.m. Will downgrade the patient to a medical bed. TIME SPENT: Time spent on this followup including assessment, plan, physical examination, patient education, review of records, family meeting is 35 minutes. DICTATING PHYSICIAN: JOEY COHEN NP [id number] PHY#: [id number] ID: [id number] JOB#: [id number] ACCT: [id number] cc: > MTDD
--- NOTE | 2017-11-14 19:28 | RADIOLOGY REPORT (SQ) ---
EXAM DESCRIPTION: MRI HEAD WITHOUT COMPLETED DATE/TIME: 11/14/2017 7:13 pm REASON FOR STUDY: AMS COMPARISON: None. TECHNIQUE: Multiplanar imaging includes non-contrasted T1, T2, FLAIR, and diffusion with ADC map seq uences. Images stored on PACS. LIMITATIONS: None. FINDINGS: ANATOMY: No anomalies. Normal vascular flow voids. Pituitary fossa normal. CSF SPACES: Atrophy induced prominence of ventricles and CSF spaces. CEREBRUM: High signal intensity lesions scattered throughout the white matter on FLAIR imaging with d istribution suggesting micro-vascular ischemic changes. No evidence of hemorrhage, mass, or extraaxi al fluid collection. POSTERIOR FOSSA: No signal alteration. No hemorrhage. No edema, masses or mass effect. Internal olya tory canals, cerebello-pontine angles, mastoids normal. DIFFUSION IMAGING: Negative for acute or sub-acute infarction. ORBITS: No masses. Globes normal. PARANASAL SINUSES: No fluid levels. Mucosa normal. OTHER: No other significant finding. IMPRESSION: ATROPHY AND CHRONIC MICRO-VASCULAR ISCHEMIC CHANGES. OTHERWISE NORMAL MRI OF THE BRAIN W ITHOUT INTRAVENOUS GADOLINIUM CONTRAST. EVIDENCE OF ACUTE STROKE: NO. TECHNICAL DOCUMENTATION: JOB ID: [id number] [employer] All Rights Reserved
--- NOTE | 2017-11-14 19:56 | PDOC PROGRESS REPORT ---
Subjective Progress Note for:: 11/14/17 Subjective:: Patient remains confused, but some mental status changes but has shown significant gradual improvement in general condition. Currently laying flat and maintaining good oxygenation and respiration. Patient however remains confused. Chest x-ray from yesterday reviewed. It shows bilateral interstitial infiltrate, somewhat improved. Patient is maintaining sinus rhythm. Review of systems: Rest review of systems negative. Medications: Medications have been reviewed. Reason For Visit: HYPONATREMIA Physical Exam Vital Signs: Temp Pulse Resp BP Pulse Ox 97.3 F 84 19 113/49 L 96 11/14/17 15:37 11/14/17 15:37 11/14/17 15:37 11/14/17 15:37 11/14/17 15:37 Intake & Output 11/13/17 11/14/17 11/15/17 06:59 06:59 06:59 Intake Total 1620 756 937 Output Total 1250 300 Balance 1620 -494 637 Weight 47.9 kg 46.7 kg Exam: GENERAL: well-nourished and in no acute distress. Patient is alert but not oriented to place time or person. HEAD: Atraumatic, normocephalic. EYES: Pupils equal round and reactive to light, extraocular movements intact, sclera anicteric, conjunctiva are normal. ENT: TMs normal, nares patent, oropharynx clear without exudates. Moist mucous membranes. No oral ulcerations or bleeding gums noted NECK: supple without lymphadenopathy or JVD. Trachea is central. No cervical or axillary lymphadenopathy noted. Carotids are 2+ LUNGS: Breath sounds bibasilar fine crackles at bases. No significant dullness noted. CHEST: Palpation of chest wall shows no significant chest wall tenderness. 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 1/6 donahue systolic murmur mitral area, rubs or gallops. ABDOMEN: Soft, no significant tenderness appreciated, normoactive bowel sounds. No guarding, no rebound. No rigidity noted . No masses appreciated. EXTREMITIES: Pedal pulses are 1-2+, no calf tenderness noted, Trace + pedal edema noted. No clubbing or cyanosis. NEUROLOGICAL: Patient is alert but is not able to participate in neurological exam because of patient's current mental status PSYCH: Patient cannot participate in a neurologic and psych exam because of the patient's current mental status SKIN: No significant ecchymosis, rash, ulcerations or signs of pruritus noted. MUSCULOSKELETAL EXAM: No significant joint swelling noted. Results Laboratory Results: 11/14/17 05:49 11/14/17 05:49 11/14/17 11/14/17 11/14/17 05:49 05:49 05:49 WBC 9.5 RBC 3.99 Hgb 11.4 L Hct 34.2 L MCV 86 MCH 28.7 MCHC 33.5 RDW 13.7 Plt Count 307 Sodium 139.6 Potassium 3.9 D Chloride 98 Carbon Dioxide 36 H Anion Gap 6 BUN 38 H Creatinine 0.78 Est GFR ( Amer) > 60 Est GFR (Non-Af Amer) > 60 Glucose 198 H Calcium 8.1 L Magnesium 2.1 Vitamin B12 > 1000.0 H 11/05/17 11/06/17 11/06/17 05:15 09:37 15:48 Troponin I 0.159 0.326 NT-Pro-B Natriuret Pep 12348 H 11/06/17 11/09/17 20:15 06:19 Troponin I 0.321 NT-Pro-B Natriuret Pep 01794 H EKG Comments: Telemetry strips shows normal sinus rhythm. No sustained tachycardia or bradycardia arrhythmias noted. Impressions: Chest X-Ray 11/13/17 08:00 IMPRESSION: Partial clearing of the bilateral diffuse airspace disease compared to 11/06/2017 Head MRI 11/14/17 11:29 IMPRESSION: ATROPHY AND CHRONIC MICRO-VASCULAR ISCHEMIC CHANGES. OTHERWISE NORMAL MRI OF THE BRAIN WITHOUT INTRAVENOUS GADOLINIUM CONTRAST. EVIDENCE OF ACUTE STROKE: NO. Assessment & Plan - Diagnosis (1) Aortic valve replaced Is this a current diagnosis for this admission?: Yes (2) Hyponatremia Is this a current diagnosis for this admission?: Yes (3) Congestive heart failure Is this a current diagnosis for this admission?: Yes (4) Pneumonia Qualifiers: Pneumonia type: due to unspecified organism Laterality: unspecified laterality Lung location: unspecified part of lung Qualified Code(s): J18.9 - Pneumonia, unspecified organism Is this a current diagnosis for this admission?: Yes - Notes Notes: Patient has remained stable from cardiac standpoint. Patient does get into CHF quite easily therefore it would recommend some baseline diuretic therapy. Patient being managed medically for her cardiac condition. Patient has other ongoing chronic problems or acute on chronic problems. After discussion with Dr. Dioni Dumas, I have decided to sign off. Please reconsult if needed. - Time Time with patient: 15-25 minutes - CODE STATUS : was discussed, patient remains DO NOT RESUSCITATE. Surrogate decision-maker unchanged. Multiple medical problems were addressed. More than 50% of the time spent coordinating care, discussing management plans with involved caregivers. Management plans discussed with involved personnels. Medical decision making was of moderate to high complexity, patient's has multiple comorbidities. Medications reviewed and adjusted accordingly: Yes
[2017-11-14] MEDS: TRAZODONE HCL 50 MG TABLET PO SCH (23:03)
[2017-11-14] MEDS: AMLODIPINE BESYLATE 5 MG TABLET PO SCH (23:05)
[2017-11-15] MEDS: LEVOTHYROXINE SODIUM 0.05 MG TABLET PO SCH (04:58)
[2017-11-15] MEDS: CARVEDILOL 6.25 MG TABLET PO SCH ×2 (09:06→22:10)
[2017-11-15] MEDS: DONEPEZIL HCL 5 MG TABLET PO SCH (09:06)
[2017-11-15] MEDS: ASPIRIN 81 MG TABLET, CHEWABLE PO SCH (09:06)
[2017-11-15] MEDS: BUSPIRONE HCL 10 MG TABLET PO SCH ×2 (09:07→18:13)
[2017-11-15] MEDS: LEVOFLOXACIN 750 MG TABLET PO SCH (09:07)
[2017-11-15] MEDS: MULTIVITAMIN TABLET PO SCH (09:07)
[2017-11-15] MEDS: FAMOTIDINE 20 MG TABLET PO SCH ×2 (09:07→22:11)
[2017-11-15] MEDS: MAGNESIUM OXIDE 400 MG TABLET PO SCH ×2 (09:07→18:13)
[2017-11-15] MEDS: DOCUSATE SODIUM 100 MG CAPSULE PO SCH (09:08)
--- NOTE | 2017-11-15 15:13 | PROGRESS NOTE E ---
Progress Note NAME: RITESH MONTOYA : 1935 AGE: 82Y DATE: 11/15/2017 ROOM: 408 SUBJECTIVE: The patient is currently lying in bed. The patient answers yes or no, but for the most part is introverted, near catatonic. I did go over the test results with the patient's daughter who is present at the bedside and active in the patient's care, and she is in agreeance. The patient does appear to have significant underlying dementia which may have been exacerbated by the hospital environment. The patient has no source of infection, no nausea or vomiting, diarrhea or shortness of breath, dizziness or chest pain. The patient has been afebrile. Blood pressure has been in a good range, and the patient does not voice any other concerns at this time. REVIEW OF SYSTEMS: Rest of review of systems is negative. MEDICATIONS: Medications have been reviewed. OBJECTIVE: GENERAL: The patient is an 82-year-old female who is awake, alert, but not fully orientated. She does not appear to be in any acute distress. VITAL SIGNS FOLLOWS: Temperature is 97.8. Pulse 77. Respirations 13. Blood pressure is 123/58. Oxygen saturation is 93% on 3.5 L nasal cannula. SKIN: Warm and dry. No rash. She is quite pale. She is not diaphoretic. HEENT: The patient's pupils are pinpoint. NECK: There is no JVD. CARDIOVASCULAR SYSTEM: Heart is regular. There is no rub. CHEST: Clear, symmetrical, unlabored. ABDOMEN: Soft, nontender, nondistended. EXTREMITIES: No clubbing, cyanosis, edema. PSYCHIATRIC: The patient has a very flat affect. DIAGNOSTICS: Lab values are as follows. Hematology obtained on 11/14/2017: WBCs are 9.5. Hemoglobin is 11.4. Hematocrit is 34.2. Platelet count of 307,000. Chemistry obtained on 11/14/2017: Sodium is 139, potassium 3.9, chloride is 98, carbon dioxide 36, BUN 38, creatinine is 0.78, glucose 198, calcium is 8.1, magnesium is 2.1. IMPRESSION AND PLAN: 1. BILATERAL PNEUMONIA. The patient only has one day left on her current coverage. The patient has responded very well. Will continue to encourage pulmonary toileting and follow. 2. E COLI URINARY TRACT INFECTION. The patient has received and completed treatment for this. 3. ACUTE ENCEPHALOPATHY SECONDARY TO THE ABOVE. The patient does have underlying vascular dementia. The patient does appear slightly improved. 4. [id number] DIASTOLIC CONGESTIVE HEART FAILURE. The patient has been diuresed and appears optivolemic at this point. Will hold further diuresis. 5. ATRIAL FIBRILLATION. The patient is rate controlled. 5. ACUTE HYPOXEMIC RESPIRATORY FAILURE. Will continue to titrate O2. 6. AORTIC VALVE REPLACEMENT. Do appreciate Cardiology input. 7. SACRAL DECUBITUS STAGE 1, PRESENT ON ADMISSION. Continue preventative measures. DISPOSITION: The patient is a DO NOT RESUSCITATE, DO NOT INTUBATE. The patient can be discharged to a rehab facility as soon as a bed is available. TIME SPENT: Time spent on this followup including assessment, plan, physical examination, patient education, review of records, and family meeting is 35 minutes. DICTATING PHYSICIAN: JOEY COHEN NP [id number] PHY#: [id number] ID: [id number] JOB#: [id number] ACCT: [id number] cc: > MTDD
[2017-11-15] MEDS: AMLODIPINE BESYLATE 5 MG TABLET PO SCH (22:08)
[2017-11-15] MEDS: TRAZODONE HCL 50 MG TABLET PO SCH (22:12)
[2017-11-15] MEDS: INSULIN LISPRO 100 UNIT/ML 3 ML VIAL SUBCUT PRN (22:20)
[2017-11-16] MEDS: LEVOTHYROXINE SODIUM 0.05 MG TABLET PO SCH (05:24)
[2017-11-16] MEDS: MAGNESIUM OXIDE 400 MG TABLET PO SCH ×2 (09:41→17:26)
[2017-11-16] MEDS: MULTIVITAMIN TABLET PO SCH (09:41)
[2017-11-16] MEDS: CARVEDILOL 6.25 MG TABLET PO SCH ×2 (09:41→23:28)
[2017-11-16] MEDS: DONEPEZIL HCL 5 MG TABLET PO SCH (09:41)
[2017-11-16] MEDS: FAMOTIDINE 20 MG TABLET PO SCH ×2 (09:42→23:29)
[2017-11-16] MEDS: BUSPIRONE HCL 10 MG TABLET PO SCH ×2 (09:42→17:26)
[2017-11-16] MEDS: ASPIRIN 81 MG TABLET, CHEWABLE PO SCH (09:42)
[2017-11-16] MEDS: DOCUSATE SODIUM 100 MG CAPSULE PO SCH (09:43)
--- NOTE | 2017-11-16 09:53 | PROGRESS NOTE E ---
Progress Note NAME: RITESH MONTOYA : 1935 AGE: 82Y DATE: 11/16/2017 ROOM: 408 SUBJECTIVE: The patient is out of bed to the bedside chair. The patient is being fed her breakfast by her daughter. The patient is minimally engaging, almost catatonic but this has been the behavior I have seen since I have been following the patient. At times, the patient will answer yes or no. There have been no reported episodes of vomiting or diarrhea. The patient ambulated this morning without issue with her family. The patient has been afebrile. Blood pressure has been in a good range, and the patient is currently on O2 at 3 L and the patient does not voice any specific concerns at this time. Did have a discussion with the patient's daughter. They have elected to proceed with rehab. Have made them aware the patient could be discharged as soon as tomorrow when a bed is available. BRIEF HISTORY: The patient is an 82-year-old female with a past medical history of dementia and aortic valve replacement. The patient presented to the emergency department over 2 weeks ago due to confusion, shortness of breath. The patient was found to have pneumonia as well as CHF and the patient has been effectively treated and the patient's condition is currently maximized. The patient is able to ambulate in the hallway with minimal assistance and is able to sit up for her meals. The patient's mental status is not at the baseline the family would like to see; however do believe an element of this is the patient's vascular dementia compounded by the hospital environment and her overall frailty. The patient has been worked up aggressively for any other encephalopathies including a MRI which was not remarkable for acute process. The patient has completed a course of antibiotics for UTI, pneumonia. The patient has been seen by Cardiology for her CHF and the patient appears optivolemic. REVIEW OF SYSTEMS: Review of systems is unobtainable. MEDICATIONS: Medications have been reviewed. OBJECTIVE: GENERAL: The patient is an 82-year-old female who is awake. Does not appear to be distressed. VITAL SIGNS FOLLOWS: Temperature is 97.3. Pulse 81. Respirations 18. Blood pressure is 127/59. Oxygen saturation is 91% on 2 L nasal cannula. SKIN: Pale, warm and dry. No rash. She is not diaphoretic. HEENT: Pupils are pinpoint. Mucous membranes appear moist. NECK: There is no JVP. CARDIOVASCULAR SYSTEM: Heart is irregularly irregular. No rub. CHEST: Diminished, symmetrical, unlabored. The patient does have some upper airway noise which clears with cough. ABDOMEN: Soft, nontender. EXTREMITIES: No clubbing, cyanosis, edema. PSYCHIATRIC: The patient has a very flat, near catatonic affect. DIAGNOSTICS: Lab values are as follows. Hematology obtained on 11/14/2017: WBCs are 9.5. Hemoglobin is 11.4. Hematocrit is 34.2. Platelet count of 307,000. Chemistry obtained on 11/14/2017: Sodium is 136, potassium 3.9, chloride is 98, carbon dioxide 36, BUN 38, creatinine is 0.78, glucose 198, calcium is 8.1, magnesium is 2.1. IMPRESSION AND PLAN: 1. BILATERAL PNEUMONIA. The patient will complete her course of Levaquin today. The patient has responded very well to treatment. Repeat imaging did show improved aeration. Continue to encourage pulmonary toileting. Will follow. Diet consistency modifications in place. 2. [id number] DIASTOLIC CONGESTIVE HEART FAILURE. The patient has been appropriately diuresed and appears optivolemic at this point. Will hold further diuresis. Do appreciate Cardiology input in this. 3. ACUTE MOST LIKELY ON CHRONIC HYPOXEMIC RESPIRATORY FAILURE. The patient appears to be O2 dependent at this point. 4. E COLI URINARY TRACT INFECTION. The patient has completed course of antibiotics. 5. VASCULAR DEMENTIA. The patient has had progressing disease. 6. ACUTE ENCEPHALOPATHY SECONDARY TO ALL OF THE ABOVE. The patient has had some slight improvement but overall appears to be decompensating. 7. ATRIAL FIBRILLATION. Rate controlled. The patient is not chronically anticoagulated given her history of dementia, falls and her bleeding risk. 8. AORTIC VALVE REPLACEMENT. Do appreciate Cardiology input. 9. SACRAL DECUBITUS STAGE 1. THIS WAS PRESENT ON ADMISSION. Continue preventative measures. 10. HYPOTHYROIDISM. Continue Synthroid. DISPOSITION: The patient is a DO NOT RESUSCITATE, DO NOT INTUBATE. The patient can be discharged to a rehab facility as soon as a bed is available. TIME SPENT: Time spent on this followup including assessment, plan, physical examination, patient education, review of records, and family meeting is 25 minutes. DICTATING PHYSICIAN: JOEY COHEN NP [id number] PHY#: [id number] ID: [id number] JOB#: [id number] ACCT: [id number] cc: > ALEENAD
[2017-11-16] MEDS: INSULIN LISPRO 100 UNIT/ML 3 ML VIAL SUBCUT PRN (16:50)
--- NOTE | 2017-11-16 19:55 | PDOC PROGRESS REPORT ---
Subjective Progress Note for:: 11/11/17 Subjective:: Patient remains confused but has shown significant gradual improvement. Currently laying flat and maintaining good oxygenation and respiration. Patient however remains confused. Currently problem being of placement. Patient is maintaining sinus rhythm. Review of systems: Rest review of systems negative. Medications: Medications have been reviewed. Reason For Visit: HYPONATREMIA Physical Exam Vital Signs: Temp Pulse Resp BP Pulse Ox 98.0 F 88 16 130/68 H 99 11/11/17 16:00 11/11/17 16:00 11/11/17 16:00 11/11/17 16:00 11/11/17 16:00 Intake & Output 11/10/17 11/11/17 11/12/17 06:59 06:59 06:59 Intake Total 283 1108 800 Output Total 360 500 Balance -77 1108 300 Weight 42.8 kg 41.3 kg Exam: GENERAL: Thin built and in no respiratory distress, this a.m. Patient is alert but not oriented to place or time but oriented to person. HEAD: Atraumatic, normocephalic. EYES: Pupils equal round and reactive to light, extraocular movements intact, sclera anicteric, conjunctiva are normal. ENT: TMs normal, nares patent, oropharynx clear without exudates. Moist mucous membranes. No oral ulcerations or bleeding gums noted NECK: supple without lymphadenopathy or JVD. Trachea is central. No cervical or axillary lymphadenopathy noted. Carotids are 2+ LUNGS: Breath sounds bibasilar fine crackles at bases. No significant dullness noted. CHEST: Palpation of chest wall shows no significant chest wall tenderness. 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 ABDOMEN: Soft, no significant tenderness appreciated, normoactive bowel sounds. No guarding, no rebound. No rigidity noted . No masses appreciated. EXTREMITIES: Pedal pulses are 1-2+, no calf tenderness noted, Trace + pedal edema noted. No clubbing or cyanosis. NEUROLOGICAL: Patient is alert but is not able to participate in neurological exam because of patient's current mental status PSYCH: Patient cannot participate in a neurologic and psych exam because of the patient's current mental status SKIN: No significant ecchymosis, rash, ulcerations or signs of pruritus noted. MUSCULOSKELETAL EXAM: No significant joint swelling noted. Results Laboratory Results: 11/11/17 15:18 11/11/17 18:45 11/11/17 11/11/17 11/11/17 09:49 15:18 15:18 WBC 9.7 RBC 4.11 Hgb 11.7 L Hct 35.3 L MCV 86 MCH 28.6 MCHC 33.2 RDW 13.6 Plt Count 286 Sodium 138.6 138.9 Potassium 4.1 4.1 Chloride 95 L 95 L Carbon Dioxide 39 H 36 H Anion Gap 5 8 BUN 27 H 34 H Creatinine 0.68 0.73 Est GFR ( Amer) > 60 > 60 Est GFR (Non-Af Amer) > 60 > 60 Glucose 211 H 256 H Calcium 8.3 L 8.0 L Magnesium 2.1 2.1 11/11/17 18:45 WBC RBC Hgb Hct MCV MCH MCHC RDW Plt Count Sodium 139.1 Potassium 3.8 Chloride 93 L Carbon Dioxide 38 H Anion Gap 8 BUN 32 H Creatinine 0.71 Est GFR ( Amer) > 60 Est GFR (Non-Af Amer) > 60 Glucose 271 H Calcium 8.0 L Magnesium 11/06/17 11:34 Blood Blood Culture - Final NO GROWTH IN 5 DAYS 11/06/17 10:58 Blood Blood Culture - Final NO GROWTH IN 5 DAYS 11/05/17 11/06/17 11/06/17 05:15 09:37 15:48 Troponin I 0.159 0.326 NT-Pro-B Natriuret Pep [id number] H 11/06/17 11/09/17 20:15 06:19 Troponin I 0.321 NT-Pro-B Natriuret Pep [id number] H Impressions: Chest X-Ray 11/10/17 00:00 IMPRESSION: Stable diffuse bilateral alveolar infiltrates compared to 11/08/2017 Assessment & Plan - Diagnosis (1) Aortic valve replaced Is this a current diagnosis for this admission?: Yes (2) Hyponatremia Is this a current diagnosis for this admission?: Yes (3) Congestive heart failure Is this a current diagnosis for this admission?: Yes (4) Pneumonia Qualifiers: Pneumonia type: due to unspecified organism Laterality: unspecified laterality Lung location: unspecified part of lung Qualified Code(s): J18.9 - Pneumonia, unspecified organism Is this a current diagnosis for this admission?: Yes - Notes Notes: Patient seems fluctuating in her mental status and also in cardiac and respiratory status. Patient would need intermittent IV diuretics. Continue with antibiotics. Recommend periodic chest x-ray and also BNP level to monitor therapy. Currently patient is not a candidate for any aggressive intervention such as especially invasive intervention. Patient remains extremely debilitated. - Time Time with patient: 15-25 minutes - CODE STATUS : was discussed, patient remains DO NOT RESUSCITATE. Surrogate decision-maker unchanged. Multiple medical problems were addressed. More than 50% of the time spent coordinating care, discussing management plans with involved caregivers. Management plans discussed with involved personnels. Medical decision making was of moderate to high complexity, patient's has multiple comorbidities. Medications reviewed and adjusted accordingly: Yes
--- NOTE | 2017-11-16 19:59 | PDOC PROGRESS REPORT ---
Subjective Progress Note for:: 11/12/17 Subjective:: Patient remains confused but has shown significant gradual improvement. Patient was noted to have respiratory distress yesterday and got IV Lasix. This morning she is improved. Currently laying flat and maintaining good oxygenation and respiration. Patient however remains confused. Currently problem being of placement. Patient is maintaining sinus rhythm. Review of systems: Rest review of systems negative. Medications: Medications have been reviewed. Reason For Visit: HYPONATREMIA Physical Exam Vital Signs: Temp Pulse Resp BP Pulse Ox 98.3 F 94 18 140/73 H 96 11/12/17 15:31 11/12/17 19:00 11/12/17 15:31 11/12/17 15:31 11/12/17 15:31 Intake & Output 11/11/17 11/12/17 11/13/17 06:59 06:59 06:59 Intake Total 7098 955 9587 Output Total 700 Balance 3616 950 1558 Weight 41.3 kg 45.6 kg Exam: GENERAL: Thin built and in no respiratory distress, patient noted to breathe normally. Patient is alert but not oriented to place or time but oriented to person. HEAD: Atraumatic, normocephalic. EYES: Pupils equal round and reactive to light, extraocular movements intact, sclera anicteric, conjunctiva are normal. ENT: TMs normal, nares patent, oropharynx clear without exudates. Moist mucous membranes. No oral ulcerations or bleeding gums noted NECK: supple without lymphadenopathy or JVD. Trachea is central. No cervical or axillary lymphadenopathy noted. Carotids are 2+ LUNGS: Breath sounds bibasilar fine crackles at bases. No significant dullness noted. CHEST: Palpation of chest wall shows no significant chest wall tenderness. HEART: [place] [employer] [place], No PSH, 2/6 MARSHAL aortic area, 2/6 early diastolic murmur noted in the LSB: 1/6 don[place]ue systolic murmur mitral area, rubs or gallops. ABDOMEN: Soft, no significant tenderness appreciated, normoactive bowel sounds. No guarding, no rebound. No rigidity noted . No masses appreciated. EXTREMITIES: Pedal pulses are 1-2+, no calf tenderness noted, Trace + pedal edema noted. No clubbing or cyanosis. NEUROLOGICAL: Patient is alert but is not able to participate in neurological exam because of patient's current mental status PSYCH: Patient cannot participate in a neurologic and psych exam because of the patient's current mental status SKIN: No significant ecchymosis, rash, ulcerations or signs of pruritus noted. MUSCULOSKELETAL EXAM: No significant joint swelling noted. Results Laboratory Results: 11/11/17 15:18 11/11/17 18:45 11/12/17 06:50 Carbonic Acid 1.46 H HCO3/H2CO3 Ratio 25:1 ABG pH 7.51 H ABG pCO2 48.4 H ABG pO2 61.8 L ABG HCO3 37.4 H ABG O2 Saturation 93.3 L ABG Base Excess 12.6 FiO2 5L 11/05/17 11/06/17 11/06/17 05:15 09:37 15:48 Troponin I 0.159 0.326 NT-Pro-B Natriuret Pep 94375 H 11/06/17 11/09/17 20:15 06:19 Troponin I 0.321 NT-Pro-B Natriuret Pep 01429 H EKG Comments: Telemetry strips reviewed showed sinus rhythm. No sustained tachycardia or bradycardia arrhythmias were noted Impressions: Chest X-Ray 11/10/17 00:00 IMPRESSION: Stable diffuse bilateral alveolar infiltrates compared to 11/08/2017 Assessment & Plan - Diagnosis (1) Aortic valve replaced Is this a current diagnosis for this admission?: Yes (2) Hyponatremia Is this a current diagnosis for this admission?: Yes (3) Congestive heart failure Is this a current diagnosis for this admission?: Yes (4) Pneumonia Qualifiers: Pneumonia type: due to unspecified organism Laterality: unspecified laterality Lung location: unspecified part of lung Qualified Code(s): J18.9 - Pneumonia, unspecified organism Is this a current diagnosis for this admission?: Yes - Notes Notes: Patient today looks better. However she remains very debilitated. As regards CHF she seems compensated. Patient seems to have significant underlying pulmonary problems as well. Patient remains hypoxemic and is on oxygen supplementation. She remains intermittently confused. Will repeat a chest x-ray tomorrow. May consider pulmonary evaluation. Cardiac vazquez she seems to have underlying CHF but it does not seem that much clinically volume overloaded. Follow BNP and chest x- ray. May consider high-resolution CT of the chest. Patient's family does not want any invasive intervention especially as regards any cardiac procedures. - Time Time with patient: 15-25 minutes - CODE STATUS : was discussed, patient remains DO NOT RESUSCITATE. Surrogate decision-maker unchanged. Multiple medical problems were addressed. More than 50% of the time spent coordinating care, discussing management plans with involved caregivers. Management plans discussed with involved personnels. Medical decision making was of moderate to high complexity, patient's has multiple comorbidities. Medications reviewed and adjusted accordingly: Yes
[2017-11-16] MEDS: AMLODIPINE BESYLATE 5 MG TABLET PO SCH (23:27)
[2017-11-16] MEDS: TRAZODONE HCL 50 MG TABLET PO SCH (23:30)
[2017-11-17] MEDS: LEVOTHYROXINE SODIUM 0.05 MG TABLET PO SCH (05:40)
[2017-11-17] MEDS: ACETAMINOPHEN 325 MG TABLET PO PRN ×2 (06:25→16:56)
[2017-11-17] MEDS: MULTIVITAMIN TABLET PO SCH (09:05)
[2017-11-17] MEDS: CARVEDILOL 6.25 MG TABLET PO SCH (09:07)
[2017-11-17] MEDS: DONEPEZIL HCL 5 MG TABLET PO SCH (09:07)
[2017-11-17] MEDS: BUSPIRONE HCL 10 MG TABLET PO SCH ×2 (09:07→16:56)
[2017-11-17] MEDS: MAGNESIUM OXIDE 400 MG TABLET PO SCH ×2 (09:07→16:56)
[2017-11-17] MEDS: FAMOTIDINE 20 MG TABLET PO SCH (09:07)
[2017-11-17] MEDS: ASPIRIN 81 MG TABLET, CHEWABLE PO SCH (09:07)
[2017-11-17] MEDS: DOCUSATE SODIUM 100 MG CAPSULE PO SCH (09:08)
--- NOTE | 2017-11-17 14:21 | PDOC DISCHARGE SUMMARY ---
General - Admit/Disc Date/PCP Admission Date/Primary Care Provider: 11/01/17 04:22 Discharge Date: 11/17/17 - Discharge Diagnosis (1) Cough Is this a current diagnosis for this admission?: Yes (2) Hyponatremia Is this a current diagnosis for this admission?: Yes (3) UTI (urinary tract infection) Is this a current diagnosis for this admission?: Yes (4) Thrombocytopenia Is this a current diagnosis for this admission?: Yes (5) Pulmonary edema Is this a current diagnosis for this admission?: Yes (6) Acute hypoxemic respiratory failure Is this a current diagnosis for this admission?: Yes (7) Aortic valve replaced Is this a current diagnosis for this admission?: Yes (8) 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 Is this a current diagnosis for this admission?: Yes (9) 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 Is this a current diagnosis for this admission?: Yes (10) E-coli UTI Is this a current diagnosis for this admission?: Yes (11) HTN (hypertension) Is this a current diagnosis for this admission?: Yes (12) Hypokalemia Is this a current diagnosis for this admission?: Yes (13) Pneumonia Is this a current diagnosis for this admission?: Yes (14) Vascular dementia Is this a current diagnosis for this admission?: Yes (15) Decubitus ulcer, stage I Is this a current diagnosis for this admission?: Yes - Additional Information Resuscitation Status: Full Code Discharge Diet: Regular Discharge Activity: Activity As Tolerated, Balance Activity w/Rest Prescriptions: Amlodipine Besylate [Norvasc 5 mg Tablet] 10 mg PO QHS 30 Days #30 tablet Carvedilol [Coreg 6.25 mg Tablet] 12.5 mg PO Q12 30 Days #120 tablet Furosemide [Lasix 20 mg Tablet] 20 mg PO QAM #30 tablet Potassium Chloride 10 meq PO DAILY #30 capsule.er Home Medications: Aspirin [Aspirin 81 mg Chewable Tablet] 81 mg PO DAILY 11/01/17 Buspirone HCl [Buspar 10 mg Tablet] 10 mg PO BID 11/01/17 Calcium Carbonate/Vitamin D3 [Calcium 600-Vit D3 200 Tablet] 1 each PO DAILY Cyanocobalamin (Vitamin B-12) [B-12] 1,000 mcg PO DAILY 11/01/17 Donepezil HCl [Aricept] 10 mg PO DAILY 11/01/17 Famotidine [Pepcid 20 mg Tablet] 20 mg PO DAILY 11/01/17 Ferrous Sulfate [Feosol 325 mg Tablet] 325 mg PO DAILY 11/01/17 Flavia Root 550 mg PO DAILY 11/01/17 Levothyroxine Sodium [Synthroid 0.05 mg Tablet] 0.05 mg PO Q6AM 11/01/17 Memantine HCl [Namenda Xr] 28 mg PO DAILY 11/01/17 Multivitamin [Tab-A-Imtiaz] 1 each PO DAILY 11/01/17 Nitroglycerin [Nitrostat 0.4 mg (1/150 Gr) Tabs 25/Bottle] 1 tab PO ASDIR PRN Tramadol HCl [Ultram 50 mg Tablet] 50 mg PO ASDIR PRN 11/01/17 Trazodone HCl [Desyrel 50 mg Tablet] 75 mg PO QHS 11/01/17 Acetaminophen [Tylenol 325 mg Tablet] 325 mg PO Q4HP PRN tablet 11/17/17 Amlodipine Besylate [Norvasc 5 mg Tablet] 10 mg PO QHS 30 Days #30 tablet Carvedilol [Coreg 6.25 mg Tablet] 12.5 mg PO Q12 30 Days #120 tablet 11/17/17 Docusate Sodium [Colace 100 mg Capsule] 100 mg PO DAILY capsule 11/17/17 Furosemide [Lasix 20 mg Tablet] 20 mg PO QAM #30 tablet 11/17/17 Potassium Chloride 10 meq PO DAILY #30 capsule.er 11/17/17 History of Present Illness History of Present Illness: RITESH MONTOYA is a 82 year old female who is in town visiting her daughter. She has a history of dementia, and is status post a our atrial valve replacement 2 as well as bypass surgery. For the last several days she has had nausea and vomiting and came to the emergency room as she has no local doctor. Here she was found to have hyponatremia according to her daughter she has been hyponatremic in the past but as far as she knew it had been corrected. In addition she was found to have a urinary tract infection. She was started on antibiotics and was admitted to our service. Hospital Course Hospital Course: The patient is an 82-year-old female who was brought in by her daughter for mental status changes. Please note that at baseline the patient appears to have very advanced dementia. Her daughter told me that most of the time her mother does not even recognize her. He was placed on ceftriaxone. Her urine culture demonstrated E. coli which was pansensitive. Approximately 2 days into her hospitalization she developed acute pulmonary edema. This appears to be secondary to diastolic congestive heart failure and valvular heart disease. Echocardiogram was performed 11/04/2017: Major findings are that the left ventricular systolic function is low normal. The patient has grade 3-4 diastolic dysfunction. Mild to moderate mitral regurgitation was noted. The patient was also noted to have a moderate amount of aortic regurgitation. Right ventricular systolic pressures were elevated at 40-50.There is a question of whether or not this could have also been a component of pneumonia. The patient's typical dose of carvedilol was titrated upward. Norvasc was added. Also, cardiology recommends low-dose diuretic therapy which she will be discharged on. The patient has not yet gotten back to her previous level of function. The family agrees for discharge to correction facility. Today, the patient's daughter and son were in the room. They were wondering why she was not eating, etc. I explained that I felt that her mother has severe failure to thrive. I explained that she is very tired and she will likely get progressively worse over the ensuing weeks to months. The family appears to understand. The patient's daughter was very concerned about pain with swallowing. Therefore, I empirically treated the patient with 1 dose of Diflucan for presumed Delmy esophagitis. This could be the result of the antibiotics that she received earlier in the course. Physical Exam Vital Signs: Temp Pulse Resp BP Pulse Ox 97.6 F 78 12 143/73 H 93 11/17/17 11:42 11/17/17 11:42 11/17/17 11:42 11/17/17 11:42 11/17/17 11:42 Intake & Output 11/16/17 11/17/17 11/18/17 06:59 06:59 06:59 Intake Total 500 305 Balance 500 305 Weight 44.8 kg 44.8 kg Additional comments: The patient appears elderly and frail. She denies any acute problems. Today, her lungs are coarse bilaterally. Her cardiac exam is regular without murmurs, gallops or rubs. The abdomen is soft and flat. Bowel sounds are present in the lower quadrants. She does not have guarding or rebound noted and there are no hernias or masses present. The lower extremities are warm to touch without edema. The skin is clean, dry, warm and intact. No rashes are noted. Results Laboratory Results: 11/14/17 05:49 11/14/17 05:49 11/05/17 11/06/17 11/06/17 05:15 09:37 15:48 Troponin I 0.159 0.326 NT-Pro-B Natriuret Pep 66122 H 11/06/17 11/09/17 20:15 06:19 Troponin I 0.321 NT-Pro-B Natriuret Pep 17685 H Impressions: Chest X-Ray 11/13/17 08:00 IMPRESSION: Partial clearing of the bilateral diffuse airspace disease compared to 11/06/2017 Head MRI 11/14/17 11:29 IMPRESSION: ATROPHY AND CHRONIC MICRO-VASCULAR ISCHEMIC CHANGES. OTHERWISE NORMAL MRI OF THE BRAIN WITHOUT INTRAVENOUS GADOLINIUM CONTRAST. EVIDENCE OF ACUTE STROKE: NO. Plan Discharge Plan: 1. The patient will be discharged to [facility] 2. It is recommended that the patient have laboratory testing no later than Friday of this week to check BUN, creatinine and potassium as Lasix is being reinitiated upon discharge. Time Spent: Greater than 30 Minutes
[2017-11-17 17:18] VITALS: BP 147/74
== END 2017-11-17 19:20 | DRG 640 ==
LOC: ER 19:24 → EH 11-01 04:22 → UNDOADMIN 11-01 04:22 → 4N 11-01 16:47
PROVIDERS: ADMIT Internal Medicine; ATTEND Internal Medicine
PROC: 5A09557 Assistance with Respiratory Ventilation, Greater than 96 Consecutive Hours, Continuous Positive Airway Pressure (ICD-10-PCS; principal; 2017-11-06)
DX: E87.1 Hypo-osmolality and hyponatremia (principal); J96.21 Acute and chronic respiratory failure with hypoxia; I50.33 Acute on chronic diastolic (congestive) heart failure; J18.9 Pneumonia, unspecified organism; I21.4 Non-ST elevation (NSTEMI) myocardial infarction; N39.0 Urinary tract infection, site not specified; B37.81 Candidal esophagitis; L89.151 Pressure ulcer of sacral region, stage 1; D69.6 Thrombocytopenia, unspecified; I11.0 Hypertensive heart disease with heart failure; B96.20 Unspecified Escherichia coli [E. coli] as the cause of diseases classified elsewhere; E87.6 Hypokalemia; F01.50 Vascular dementia, unspecified severity, without behavioral disturbance, psychotic disturbance, mood disturbance, and anxiety; I08.0 Rheumatic disorders of both mitral and aortic valves; I25.10 Atherosclerotic heart disease of native coronary artery without angina pectoris; E03.9 Hypothyroidism, unspecified; K21.9 Gastro-esophageal reflux disease without esophagitis; F32.9 Major depressive disorder, single episode, unspecified; I45.10 Unspecified right bundle-branch block; G30.9 Alzheimer's disease, unspecified; F02.80 Dementia in other diseases classified elsewhere, unspecified severity, without behavioral disturbance, psychotic disturbance, mood disturbance, and anxiety; I48.91 Unspecified atrial fibrillation; R62.7 Adult failure to thrive; Z66 Do not resuscitate; Z95.2 Presence of prosthetic heart valve; Z79.899 Other long term (current) drug therapy; Z90.49 Acquired absence of other specified parts of digestive tract; Z90.710 Acquired absence of both cervix and uterus; Z88.6 Allergy status to analgesic agent; Z88.8 Allergy status to other drugs, medicaments and biological substances; Z91.041 Radiographic dye allergy status; Z91.013 Allergy to seafood; Z95.1 Presence of aortocoronary bypass graft; Z99.81 Dependence on supplemental oxygen; Z82.49 Family history of ischemic heart disease and other diseases of the circulatory system
CPT/HCPCS: 36415; 36600; 70551; 71045; 71046; 80048; 80053; 81001; 82550; 82553; 82607; 82803; 82962; 83735; 83880; 83930; 83935; 84100; 84300; 84443; 84484; 85025; 85027; 87040; 87086; 87088; 87186; 87493; 87804; 93005; 93010; 93306; 94660; 96361; 96374; 99285; G8978-GP; G8979-GP; G8996-GN; G8997-GN; G8998-GN; J0360; J0696; J1650; J1815; J1940; J2405; J2543; J3370; J3475; J3480; J3490; J7030; J7040; J7060; S0119